=== PATIENT | female | born 1980 | race Caucasian/White ===

== ENCOUNTER 2020-01-21 21:59 | Outpatient (REF) | payer MEDICAID, SELFPAY ==
[2020-01-21 21:46] LABS: Anion Gap 10.6 mmol/L (3-11); BUN 11 mg/dL (7-18); CO2 27.4 mmol/L (21.0-32.0); Calcium 9.7 mg/dL (8.5-10.1); Chloride 101 mmol/L (98-107); Cholesterol 281 mg/dL (<200); Glucose 89 mg/dL (74-106); HDL Cholesterol 44 mg/dL (40-60); Potassium 4.5 mmol/L (3.5-5.1); Sodium 139 mmol/L (136-145); TSH 3.96 uIU/mL (0.36-3.74); Triglyceride 409 mg/dL (<150)
[2020-01-21 21:52] LABS: Abs Immature Grans 0.04 k/cumm (0.0-0.09); Absolute Basophil Count 0.04 k/cumm (0.0-0.2); Absolute Eosinophil Count 0.17 k/cumm (0.0-0.7); Absolute Lymphocyte Count 3.66 k/cumm (1.2-3.4); Absolute Monocyte Count 0.47 k/cumm (0.11-0.7); Absolute Neutrophil Count 5.16 k/cumm (1.2-6.7); Basophils % 0.4; Eosinophils % 1.8; HCT 43.2 % (36.0-46.0); HGB 14.3 g/dL (12.0-15.5); Immature Grans % 0.4 %; Lymphocytes % 38.4; Mean Corp. HGB Concentration 33.1 g/dL (32.0-36.0); Mean Corpuscular Hemoglobin 28.8 pg (27.0-33.0); Mean Corpuscular Volume 86.9 fL (80-95); Mean Platelet Volume 11.6 fL (8.0-11.0); Monocytes % 4.9; Neutrophils % 54.1; Platelet Count 271 x1000/uL (130-400); RBC 4.97 m/cumm (4.00-5.20); RBC Distribution Width 13.6 % (11.7-14.6); White Blood Cell Count 9.54 k/cumm (4.4-10.8)
[2020-01-21 22:24] LABS: Hemoglobin A1C 5.7 % (3.8-5.6)
[2020-01-21 22:28] LABS: LDL CHOLESTEROL 179 mg/dL (<100)
== END 2020-01-21 22:19 ==
LOC: NCHCN 21:59
PROVIDERS: PCP Nurse Practitioner Community Health; Visit Provider Nurse Practitioner Community Health
DX: E03.9 Hypothyroidism, unspecified (principal); I10 Essential (primary) hypertension; Z83.3 Family history of diabetes mellitus
CPT/HCPCS: 80048; 80061; 83721; 83036; 84443; 85025

== ENCOUNTER 2021-01-09 10:37 | Outpatient (REF) | payer MEDICAID, SELFPAY ==
[2021-01-09 14:41] LABS: Anion Gap 8.4 mmol/L (3-11); BUN 7 mg/dL (7-18); CO2 28.6 mmol/L (21.0-32.0); CREATININE 0.8 mg/dL (0.55-1.02); Calcium 9.6 mg/dL (8.5-10.1); Chloride 103 mmol/L (98-107); Glucose 91 mg/dL (74-106); Potassium 4.2 mmol/L (3.5-5.1); Sodium 140 mmol/L (136-145); TSH 4.75 uIU/mL (0.36-3.74)
== END 2021-01-09 10:38 | disposition home or self-care (01) ==
LOC: NCHCN 10:37
PROVIDERS: PCP Nurse Practitioner Community Health; Visit Provider Nurse Practitioner Community Health
DX: E03.9 Hypothyroidism, unspecified (principal); I10 Essential (primary) hypertension
CPT/HCPCS: 80048; 84443

== ENCOUNTER 2021-07-25 15:02 | Outpatient (REF) | payer MEDICAID, SELFPAY | END 2021-07-25 15:03 | disposition home or self-care (01) | LOC: NCHCN 15:02 | PROVIDERS: PCP Nurse Practitioner Community Health; Visit Provider Nurse Practitioner Community Health | DX: N39.0 Urinary tract infection, site not specified (principal) | CPT/HCPCS: 87086 ==

== ENCOUNTER 2021-08-03 15:47 | Outpatient (REF) | payer MEDICAID, SELFPAY ==
[2021-08-07 09:14] LABS: Hepatitis C Ab w Rflx HCV PCR Negative (Negative)
[2021-08-07 11:16] LABS: HIV-1/2 Ag & Ab Screen Negative (Negative)
[2021-08-07 14:41] LABS: Chlamydia Result Negative (Negative); GC Result Negative (Negative)
[2021-08-08 10:45] LABS: Syphilis Serology (RPR) Negative (Negative)
== END 2021-08-03 15:48 | disposition home or self-care (01) ==
LOC: NCHCN 15:47
PROVIDERS: PCP Nurse Practitioner Community Health; Visit Provider Nurse Practitioner Family
DX: Z11.4 Encounter for screening for human immunodeficiency virus [HIV] (principal); Z11.59 Encounter for screening for other viral diseases; Z11.3 Encounter for screening for infections with a predominantly sexual mode of transmission; N39.0 Urinary tract infection, site not specified
CPT/HCPCS: 86803; 87389; 87491; 87591; 86592; 87086; 87480; 87510; 87660

== ENCOUNTER 2021-08-23 12:42 | Outpatient (REF) | payer MEDICAID, SELFPAY | END 2021-08-23 12:43 | disposition home or self-care (01) | LOC: NCHCN 12:42 | PROVIDERS: PCP Nurse Practitioner Community Health; Visit Provider Nurse Practitioner Community Health | DX: R39.89 Other symptoms and signs involving the genitourinary system (principal); R82.998 Other abnormal findings in urine | CPT/HCPCS: 87077; 87086; 87186 ==

== ENCOUNTER 2021-11-16 14:49 | Outpatient (REF) | payer MEDICAID, SELFPAY ==
--- OUTSIDE RECORDS SUMMARY | 2021-11-16 14:53 | XMS_ITS | CCD ---
:1980 Author Care Team Providers Name Role Phone GRANT CHAPMAN MD Attending Physician Unavailable MD JOSE Er Physician 1 Unavailable Vital Signs Unknown or Not Available. Allergies Allergy Code Allergy Type Reaction Status VIOXX {Clinical monitoring 0 Drug allergy RASH A ctive unavailable} PCN (PENICILLIN) {Clinical 0 Drug allergy UNKNOWN A ctive monitoring unavailable} VIOXX (Free Text) {Clinical 0 Drug allergy RASH Active monitoring unavailable} Procedures Unknown or Not Available. History of Immunizations Unknown or Not Available. 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 Active Medications Medication Code Dose Units Frequency Route Modification Start Date/Time BCP 0 1 TABLET DAILY ORAL 04/21/2019 03:56 Prescription Detail TAKE 1 TABLET ORAL DAILY Gabapentin 254076 100 MILLIGRAMS DAILY ORAL 04/21/2019 100MG Oral 03:56 Capsule Prescription Detail TAKE 100 MILLIGRAMS ORAL HUMPHREY LY Lisinopril 10MG 762641 10 MILLIGRAMS DAILY ORAL 04/21 Oral Tablet 03:56 Prescription Detail TAKE 10 MILLIGRAMS ORAL YOLY Y LORADAMED 10MG 0 10 MILLIGRAMS DAILY ORAL 2018 ORAL TABLET 03:56 Prescription Detail TAKE 10 MILLIGRAMS ORAL YOLY Y raNITIdine 327949 150 MILLIGRAMS DAILY ORAL 04/21/2019 150MG Oral 03:56 Tablet Prescription Detail TAKE 150 MILLIGRAMS ORAL HUMPHREY LY RELPAX 20MG 0 20 MILLIGRAMS NEEDED ORAL 019 ORAL TABLET 03:56 Prescription Detail TAKE 20 MILLIGRAMS ORAL N EEDED Medications Administered During Visit Unknown or Not Available. Encounters Encounter Diagnosis Diagnosis Code Start Date Migraine, unspecified, intractable, with status [id number] 06/05/2021 migrainosus Social History Smoking Status Code Start Date End Date Current every day smoker [id number] 1995 Patient Decision Aids Unknown or Not Available. Discharge Instructions You were admitted to [place] [address] on 06/05/2021 19:52 with a principal diagnosis of Migraine, unspecified, intr actable, with status migrainosus You were discharged from [facility] 01 on 06/05/2021 22:05 Should you have any questions prior to d ischarge, please contact a member of your healthcare team. If you have left the ho spital and have any questions, please contact your primary care physician. Chief Complaint and Reason For Visit Chief Complaint Date of Onset HEADACHE Function Status Unknown or Not Available. Plan of Care Unknown or Not Available. Referral/Transition of Care Unknown or Not Available.
--- OUTSIDE RECORDS SUMMARY | 2021-11-16 14:53 | XMS_ITS | CCD ---
:1980 Author Care Team Providers Name Role Phone GURWINDER HAYS, JOVANNY LEONARDO Attending Physician Unavailable KAYKAY Er Physician 1 Unavailable Vital Signs Unknown [...] Date Resolved Date Status Ankylosis of lower 794880166 Active leg joint Results URINALYSIS WITH REFLEX CULT IF POSITIVE - Collect Date/Time: 07/15/2021 21:01 Test Name Code Test Result Test Units Test Ref Range COLLECTION MODE: Clean Catch N/A Color 5778-6 YELLOW N/A yellow Appearance 5767-9 CLOUDY N/A clear Glucose urine 78920-1 NEGATIVE N/A negative mg/ dl Bilirubin 5770-3 NEGATIVE N/A negative Ketones 2514-8 15 N/A negative mg/d l Spec gravity 5811-5 >=1.030 N/A 1.003 - 1.030 pH urine 2756-5 6.0 N/A 5.0 - 7.0 Protein 79074-7 >=300 N/A negative mg/d l Urobilinogen 90884-1 1.0 N/A <or= 1 EU/d l Nitrite. 5802-4 NEGATIVE N/A negative Blood 5794-3 LARGE N/A negative Leukocytes. MODERATE N/A negative MICROSCOPIC INDICATED N/A WBCs. 06462-2 10-25 N/A 0-5 / hpf RBCs 65162-0 >100 N/A 0-5 / hpf Epith cells 97142-4 0-5 N/A 0-5 / hpf Cell types squamous N/A Crystals none N/A none Bacteria none N/A none Mucus 8247-9 none N/A none Casts 22306-0 none N/A none /lp f Active Medications Medication Code Dose Units Frequency Route Modification Start Date/Time BCP 0 1 TABLET DAILY ORAL 04/21/2019 03:56 Prescription Detail TAKE 1 TABLET ORAL DAILY Gabapentin 627512 100 MILLIGRAMS DAILY ORAL 04/21/2019 100MG Oral 03:56 Capsule Prescription Detail TAKE 100 MILLIGRAMS ORAL HUMPHREY LY Lisinopril 10MG 160398 10 MILLIGRAMS DAILY ORAL 04/21 Oral Tablet 03:56 Prescription Detail TAKE 10 MILLIGRAMS ORAL YOLY Y LORADAMED 10MG 0 10 MILLIGRAMS DAILY ORAL 2018 ORAL TABLET 03:56 Prescription Detail TAKE 10 MILLIGRAMS ORAL YOLY Y raNITIdine 380357 150 MILLIGRAMS DAILY ORAL 04/21/2019 150MG Oral 03:56 Tablet Prescription Detail TAKE 150 MILLIGRAMS ORAL HUMPHREY LY RELPAX 20MG 0 20 MILLIGRAMS NEEDED ORAL 019 ORAL TABLET 03:56 Prescription Detail TAKE 20 MILLIGRAMS ORAL N EEDED Medications Administered During Visit Unknown or Not Available. Encounters Encounter Diagnosis Diagnosis Code Start Date Acute cystitis with hematuria N3001 07/15/2021 Social History Smoking Status Code Start Date End Date Current every day smoker [id number] 1995 Patient Decision Aids Unknown or Not Available. Discharge Instructions You were admitted to [facility] on 07/15/2021 20:12 with a principal diagnosis of Acute cystitis with hematur ia You had the following tests done: URINALYSIS WITH REFLEX CULT IF POSITIVE You were discharged from [facility] on 07/15/2021 22:48 Should you have any questions prior to d ischarge, please contact a member of your healthcare team. If you have left the spital and have any questions, please contact your primary care physician. Chief Complaint and Reason For Visit Chief Complaint Date of Onset MIGRAINE Function Status Unknown or Not Available. Plan of Care Unknown or Not Available. Referral/Transition of Care Unknown or Not Available.
[2021-11-17 14:45] LABS: Chlamydia Result Negative (Negative); GC Result Negative (Negative)
== END 2021-11-16 14:50 | disposition home or self-care (01) ==
LOC: NCHCN 14:49
PROVIDERS: PCP Nurse Practitioner Community Health; Visit Provider Registered Nurse
DX: R82.90 Unspecified abnormal findings in urine (principal); Z11.3 Encounter for screening for infections with a predominantly sexual mode of transmission
CPT/HCPCS: 87077; 87491; 87591; 87086; 87186

== ENCOUNTER 2022-01-10 15:08 | Outpatient (REF) | payer MEDICAID, SELFPAY ==
--- NOTE | 2022-01-10 11:45 | PAPFT_PTH ---
PATIENT: Martha Sanchez LOC: [facility]#:[id number] AGE/SX: 41/F ROOM: RE01/10/[address]: Kierra Cunningham : 1980 BED: DIS: 01/10/2022 SPEC #: [id number] RECD: 01/11/22 12:55 STATUS: CHONG REQ #: [id number] BART: 01/10/22 11:[address]: Kierra Cunningham DEPT: [facility] Cytology RECD BY: Barbara Rob ENTERED: 01/11/22 12:56 SP TYPE: PAPFT OTHR DR: Emily Reyes Tissues: 1 - CX/ENDOCX FOR PAP SMEARS Procedures: PAP THIN PREP/[facility] Screening HPV DNA PROBE Comments: [id number]
--- OUTSIDE RECORDS SUMMARY | 2022-01-10 15:11 | XMS_ITS | CCD ---
:1980 Author Care Team Providers Name Role Phone KAVON VÁSQUEZ Attending Physician Unavailable Zoila VÁSQUEZ Er Physician 1 Unavailable Litzy Dupree Registered Nurse Unavailable Vital Signs Vital Sign Value Unit Date/Time Recent/Initial? BMI (Body Mass Index) 27.4 kg/m^2 10/06/2021 15:40 In itial VS Weight Measured 145 lbs 10/06/2021 15:40 Initial VS Height 61 in 10/06/2021 15:40 Initial VS BSA (Body Surface 1.68 m^2 10/06/2021 15:40 Initia l VS Area) BP Systolic 145 mmHg 10/06/2021 15:40 Initial VS BP Diastolic 85 mmHg 10/06/2021 15:40 Initial VS Respiratory Rate 20 bpm 10/06/2021 15:40 Initial VS Heart Rate 63 bpm 10/06/2021 15:40 Initial VS O2 % BldC Oximetry 100 % 10/06/2021 15:40 Initi al VS Body Temperature 35.8 degrees 10/06/2021 15:40 Initial VS BP Systolic 118 mmHg 10/06/2021 17:22 Most Recent VS BP Diastolic 67 mmHg 10/06/2021 17:22 Most Recent VS Respiratory Rate 18 bpm 10/06/2021 17:22 Most Re cent VS Heart Rate 72 bpm 10/06/2021 17:22 Most Recent VS O2 % BldC Oximetry 98 % 10/06/2021 17:22 Most Recent VS Allergies Allergy Code Allergy Type Reaction Status VIOXX {Clinical monitoring 0 Drug allergy RASH A ctive unavailable} PCN (PENICILLIN) {Clinical 0 Drug allergy UNKNOWN A ctive monitoring unavailable} VIOXX (Free Text) {Clinical 0 Drug allergy RASH Active monitoring unavailable} Procedures Unknown or Not Available. History of Immunizations Unknown or Not Available. Problems Problem Code Start Date Resolved Date Status Ankylosis of lower 816353421 Active leg joint Results Unknown or Not Available. Active Medications Unknown or Not Available. Medications Administered During Visit Medication Dose Units Frequency Route Date/Time of Last Dose SODIUM CHLORIDE 0.9% 1000 ML X1 IV 11/0 04/2021 1000ML 17:24 DiphenhydrAMINE INJ 25 MG X1 IVP 10/06 SDV: 50MG/ML 16:20 METOCLOPRAMIDE INJ 10 MG X1 IVP 2020 SDV: 10MG/2ML 16:30 ACETAMINOPHEN INJ 1000 MG X1 IVPB 021 IVPB: 1000MG/100ML 16:26 Encounters Encounter Diagnosis Diagnosis Code Start Date Migraine [id number] 10/06/2021 Social History Smoking Status Code Start Date End Date Current every day smoker [id number] 1995 Patient Decision Aids Unknown or Not Available. Discharge Instructions You were admitted to [facility] on 10/06/2021 15:19 with a principal diagnosis of Migraine, unspecified, not intractable, without status migrainosus You were discharged from [facility] on 10/06/2021 17:38 Should you have any questions prior to d ischarge, please contact a member of your healthcare team. If you have left the ho spital and have any questions, please contact your primary care physician. Chief Complaint and Reason For Visit Chief Complaint Date of Onset MIGRANE Function Status Unknown or Not Available. Plan of Care Unknown or Not Available. Referral/Transition of Care Unknown or Not Available.
--- OUTSIDE RECORDS SUMMARY | 2022-01-10 15:11 | XMS_ITS | CCD ---
[...] Date Resolved Date Status Ankylosis of lower 125927503 Active leg joint Results Unknown or Not Available. Active Medications Medication Code Dose Units Frequency Route Modification Start Date/Time BCP 0 1 TABLET DAILY ORAL 04/21/2019 03:56 Prescription Detail TAKE 1 TABLET ORAL DAILY Gabapentin 969389 100 MILLIGRAMS DAILY ORAL 04/21/2019 100MG Oral 03:56 Capsule Prescription Detail TAKE 100 MILLIGRAMS ORAL HUMPHREY LY Lisinopril 10MG 720926 10 MILLIGRAMS DAILY ORAL 04/21 Oral Tablet 03:56 Prescription Detail TAKE 10 MILLIGRAMS ORAL YOLY Y LORADAMED 10MG 0 10 MILLIGRAMS DAILY ORAL 2018 ORAL TABLET 03:56 Prescription Detail TAKE 10 MILLIGRAMS ORAL YOLY Y raNITIdine 248267 150 MILLIGRAMS DAILY ORAL 04/21/2019 150MG Oral 03:56 Tablet Prescription Detail TAKE 150 MILLIGRAMS ORAL HUMPHREY LY RELPAX 20MG 0 20 MILLIGRAMS NEEDED ORAL 019 ORAL TABLET 03:56 Prescription Detail TAKE 20 MILLIGRAMS ORAL N EEDED Medications Administered During Visit Unknown or Not Available. Encounters Encounter Diagnosis Diagnosis Code Start Date Migraine, unspecified, intractable, with status [id number] 06/05/2021 migrainosus Social History Smoking Status Code Start Date End Date Current every day smoker [id number] 1995 Patient Decision Aids Unknown or Not Available. Discharge Instructions You were admitted to [place] [address] on 06/05/2021 19:52 with a principal diagnosis of Migraine, unspecified, intr actable, with status migrainosus You were discharged from [facility] 01 on 06/05/2021 22:05 Should you [...]
--- OUTSIDE RECORDS SUMMARY | 2022-01-10 15:11 | XMS_ITS | CCD ---
[...] Date Resolved Date Status Ankylosis of lower 595631371 Active leg joint Results URINALYSIS WITH REFLEX CULT IF POSITIVE - Collect Date/Time: 07/15/2021 21:01 Test Name Code Test Result Test Units Test Ref Range COLLECTION MODE: Clean Catch N/A Color 5778-6 YELLOW N/A yellow Appearance 5767-9 CLOUDY N/A clear Glucose urine 27360-3 NEGATIVE N/A negative mg/ dl Bilirubin 5770-3 NEGATIVE N/A negative Ketones 2514-8 15 N/A negative mg/d l Spec gravity 5811-5 >=1.030 N/A 1.003 - 1.030 pH urine 2756-5 6.0 N/A 5.0 - 7.0 Protein 90144-8 >=300 N/A negative mg/d l Urobilinogen 58447-6 1.0 N/A <or= 1 EU/d l Nitrite. 5802-4 NEGATIVE N/A negative Blood 5794-3 LARGE N/A negative Leukocytes. MODERATE N/A negative MICROSCOPIC INDICATED N/A WBCs. 83528-5 10-25 N/A 0-5 / hpf RBCs 21702-6 >100 N/A 0-5 / hpf Epith cells 05656-2 0-5 N/A 0-5 / hpf Cell types squamous N/A Crystals none N/A none Bacteria none N/A none Mucus 8247-9 none N/A none Casts 65641-1 none N/A none /lp f Active Medications Medication Code Dose Units Frequency Route Modification Start Date/Time BCP 0 1 TABLET DAILY ORAL 04/21/2019 03:56 Prescription Detail TAKE 1 TABLET ORAL DAILY Gabapentin 809521 100 MILLIGRAMS DAILY ORAL 04/21/2019 100MG Oral 03:56 Capsule Prescription Detail TAKE 100 MILLIGRAMS ORAL HUMPHREY LY Lisinopril 10MG 653580 10 MILLIGRAMS DAILY ORAL 04/21 Oral Tablet 03:56 Prescription Detail TAKE 10 MILLIGRAMS ORAL YOLY Y LORADAMED 10MG 0 10 MILLIGRAMS DAILY ORAL 2018 ORAL TABLET 03:56 Prescription Detail TAKE 10 MILLIGRAMS ORAL YOLY Y raNITIdine 902542 150 MILLIGRAMS DAILY ORAL 04/21/2019 150MG Oral [...] Date End Date Current every day smoker [id number] 1995 Patient Decision Aids Unknown or Not Available. Discharge Instructions You were admitted to [facility] on 07/15/2021 20:12 with a principal diagnosis of Acute cystitis with hematur ia You had the following tests done: URINALYSIS WITH REFLEX CULT IF POSITIVE You were discharged from [facility] on 07/15/2021 22:48 Should you [...]
[2022-01-10 22:01] LABS: Anion Gap 9.5 mmol/L (3-11); BUN 9 mg/dL (7-18); CO2 27.5 mmol/L (21.0-32.0); CREATININE 0.8 mg/dL (0.55-1.02); Calcium 9.5 mg/dL (8.5-10.1); Calculated LDL 179 mg/dL (<100); Chloride 104 mmol/L (98-107); Cholesterol 259 mg/dL (<200); Glucose 82 mg/dL (74-106); HDL Cholesterol 47 mg/dL (40-60); Potassium 4.5 mmol/L (3.5-5.1); Sodium 141 mmol/L (136-145); TSH 0.44 uIU/mL (0.36-3.74); Triglyceride 166 mg/dL (<150)
[2022-01-12 09:53] LABS: HIV-1/2 Ag & Ab Screen Negative (Negative)
== END 2022-01-10 15:09 | disposition home or self-care (01) ==
LOC: NCHCN 15:08
PROVIDERS: PCP Nurse Practitioner Community Health; Visit Provider Registered Nurse
DX: Z12.4 Encounter for screening for malignant neoplasm of cervix (principal); Z11.4 Encounter for screening for human immunodeficiency virus [HIV]; E03.9 Hypothyroidism, unspecified; I10 Essential (primary) hypertension; Z68.27 Body mass index [BMI] 27.0-27.9, adult
CPT/HCPCS: 80048; 80061; 87389; 88142; 84443; 87624

== ENCOUNTER 2023-02-08 14:47 | Outpatient (REF) | payer MEDICAID, SELFPAY ==
[2023-02-08 16:03] LABS: TSH 1.44 uIU/mL (0.36-3.74)
== END 2023-02-08 14:48 | disposition home or self-care (01) ==
LOC: NCHCN 14:47
PROVIDERS: PCP Nurse Practitioner Community Health; Visit Provider Registered Nurse
DX: E03.9 Hypothyroidism, unspecified (principal)
CPT/HCPCS: 84443

== ENCOUNTER 2023-07-04 19:37 | Outpatient (REF) | payer MEDICAID, SELFPAY ==
[2023-07-04 21:00] LABS: HCT 39.8 % (36.0-46.0); HGB 13.1 g/dL (11.2-15.7); MCH 28.4 pg (27.0-33.0); MCHC 32.9 % (32.0-36.0); MCV 86 fL (80-95); Platelet Count 208 10^3/uL (130-400); RBC 4.61 10^6/uL (3.93-5.22); RDW 13.6 % (11.7-14.6); RDW-SD 42.3 fL; WBC 11.44 10^3/uL (4.4-10.8)
[2023-07-04 21:19] LABS: Hemoglobin A1C 5.5 % (<5.7)
[2023-07-04 21:25] LABS: ALT 17 U/L (14-59); AST 18 U/L (15-37); Alkaline Phosphatase 82 U/L (46-116); Anion Gap 8.9 mmol/L (3-11); BUN 14 mg/dL (7-18); Bilirubin, Total 0.2 mg/dL (0.2-1.0); CO2 27.1 mmol/L (21.0-32.0); Calcium 9.5 mg/dL (8.5-10.1); Chloride 103 mmol/L (98-107); Cholesterol 238 mg/dL (<200); Estimated GFR 73.04 (mL/min/1.73m2); Glucose 93 mg/dL (74-106); HDL Cholesterol 40 mg/dL (40-60); Potassium 4.1 mmol/L (3.5-5.1); Sodium 139 mmol/L (136-145); TSH 1.52 uIU/mL (0.36-3.74); Total Protein 7.7 g/dL (6.4-8.2); Triglyceride 455 mg/dL (<150)
[2023-07-04 21:38] LABS: LDL CHOLESTEROL 137 mg/dL (<100)
== END 2023-07-04 19:38 | disposition home or self-care (01) ==
LOC: NCHCN 19:37
PROVIDERS: PCP Nurse Practitioner Community Health; Visit Provider Registered Nurse
DX: R73.03 Prediabetes (principal); N93.8 Other specified abnormal uterine and vaginal bleeding; E03.9 Hypothyroidism, unspecified; I10 Essential (primary) hypertension; E78.1 Pure hyperglyceridemia
CPT/HCPCS: 80053; 80061; 83721; 85027; 83036; 84443

== ENCOUNTER 2023-12-09 16:56 | Outpatient (REF) | payer MEDICAID, SELFPAY ==
--- OUTSIDE RECORDS SUMMARY | 2023-12-09 16:59 | XMS_ITS | CCD ---
Author Name Unknown Address [address] [place] [address] [id number] Organization Unknown Address [address] [place] [address] [phone] Care Team Providers Care Community Organization Director Name Role Phone LUIS GALLOWAY Attending Physician [phone] LUIS GALLOWAY Er Physician 0 [phone] BRAYDEN Garcia Registered Nurse [phone] Vital Signs Vital Sign Value Unit Date/Time Recent/Initial ? BMI (Body Mass Index) 30.23 kg/m^2 05/27/2023 18: 21 Initial VS Weight Measured 160 lbs 05/27/2023 18:21 Ini tial VS Height 61 in 05/27/2023 18:21 Initial VS BSA (Body Surface Area) 1.77 m^2 05/27/2023 1 8:21 Initial VS BP Systolic 174 mmHg 05/27/2023 18:21 Initial VS BP Diastolic 87 mmHg 05/27/2023 18:21 Initia l VS Respiratory Rate 16 bpm 05/27/2023 18:21 In itial VS Heart Rate 59 bpm 05/27/2023 18:21 Initial VS O2 % BldC Oximetry 98 % 05/27/2023 18:21 Initial VS Body Temperature 36.4 degrees 05/27/2023 18:21 In itial VS BP Systolic 138 mmHg 05/27/2023 19:56 Most Re cent VS BP Diastolic 80 mmHg 05/27/2023 19:56 Most R ecent VS Respiratory Rate 16 bpm 05/27/2023 19:[address] Recent VS Heart Rate 76 bpm 05/27/2023 19:56 Most Rec ent VS O2 % BldC Oximetry 97 % 05/27/2023 19:56 Most Recent VS Body Temperature 36.7 degrees 05/27/2023 19:[address] Recent VS Allergies Allergy Code Allergy Type Reaction Status VIOXX {Clinical monitoring unavailable} 0 Drug al lergy RASH Active PCN (PENICILLIN) {Clinical m onitoring unavailable} 0 Drug allergy SWELLING, ANGIOEDEMA Active Procedures Unknown or Not Available. History of Immunizations Unknown or Not Available. Problems Problem Code Start Date Resolved Date Status Ankylosis of lower leg joint 731738398 Active HTN 73824048 Active Results Unknown or Not Available. Active Medications Medications Administered During Visit Medication Dose Units Frequency Route Date/Time of Last Dose SODIUM CHLORIDE 0.9% 1000ML 1000 ML X1 05/27/2023 19:12 KETOROLAC INJ SDV: 30MG/1ML 15 MG X1 IV P 05/27/2023 19:12 DroPERidol INJ SDV: 5MG/2ML 0.62 MG X1 IV P 05/27/2023 19:12 SUMAtriptan SUCC INJ SDV: 6MG/0.5ML 6 MG X1 SUBQ 05/27/2023 19:12 Encounters Encounter Diagnosis Diagnosis Code Start Date Migraine [id number] 05/27/2023 Social History Smoking Status Code Start Date End Date Current every day smoker [id number] 1995 Patient Decision Aids Unknown or Not Available. Discharge Instructions You were admitted to [facility] on 05/27/2023 18:04 with a principal diagnosis of Migraine, unspecified, not intractable, without status migrainosus You were discharged from [facility] on 05/27/2023 20:01 Should you have any questions prior to discharge, please contact a member of your healthcare team. If you have left the hospital and have any questions, please contact your primary care physician. Chief Complaint and Reason For Visit Chief Complaint Date of Onset MIGRAINE Function Status Unknown or Not Available. Plan of Care Unknown or Not Available. Referral/Transition of Care Unknown or Not Available.
--- OUTSIDE RECORDS SUMMARY | 2023-12-09 16:59 | XMS_ITS | CCD ---
Author Name Unknown Address [address] [place] [address] [id number] Organization Unknown Address [address] [place] [address] [phone] Care Team Providers Care Assistant Produce Manager Name Role Phone GRANT CHAPMAN MD Attending Physician [phone] IAN GARCIA MD Er Physician [phone] Vital Signs Unknown or Not Available. Allergies Allergy Code Allergy Type Reaction Status VIOXX {Clinical monitoring unavailable} 0 Drug al lergy RASH Active PCN (PENICILLIN) {Clinical monitoring unavailable} 0 Drug allergy Active Procedures Unknown or Not Available. History of Immunizations Unknown or Not Available. Problems Problem Code Start Date Resolved Date Status Ankylosis of lower leg joint 591334222 Active HTN 13955963 Active Results Unknown or Not Available. Active Medications Unknown or Not Available. Medications Administered During Visit Unknown or Not Available. Encounters Encounter Diagnosis Diagnosis Code Start Date Migraine, unspecified, intractable, with status migrainosus Y59934 06/05/2021 Social History Smoking Status Code Start Date End Date Current every day smoker [id number] 1995 Patient Decision Aids Unknown or Not Available. Discharge Instructions You were admitted to [facility] on 06/05/2021 19:52 with a principal diagnosis of Migraine, unspecified, intractable, with status migrainosus You were discharged from [facility] on 06/05/2021 22:05 Should you have any [...]
--- OUTSIDE RECORDS SUMMARY | 2023-12-09 16:59 | XMS_ITS | CCD ---
Author Name Unknown Address [address] [place] [address] [phone] Organization Unknown Address [address] [place] [address] [phone] Care Team Providers Care Bowl Sander Name Role Phone GURWINDER HAYS, JOVANNY LEONARDO Attending Physician [phone] MESFIN MCCRACKEN Er Physician 1 0 Vital Signs Unknown or Not Available. Allergies Allergy Code Allergy Type Reaction Status VIOXX {Clinical monitoring unavailable} 0 Drug al lergy RASH Active PCN (PENICILLIN) {Clinical monitoring unavailable} 0 Drug allergy Active Procedures Unknown or Not Available. History of Immunizations Unknown or Not Available. Problems Problem Code Start Date Resolved Date Status Ankylosis of lower leg joint 348196856 Active HTN 33913550 Active Results URINALYSIS WITH REFLEX CULT IF POSITIVE - Collect Date/Time: 07/15/2021 21:01 Test Name Code Test Result Test Units Test Ref Rang e COLLECTION MODE: Clean Catch N/A Color 5778-6 YELLOW N/A yellow Appearance 5767-9 CLOUDY N/A clear Glucose urine 93493-9 NEGATIVE N/A negative mg /dl Bilirubin 5770-3 NEGATIVE N/A negative Ketones 2514-8 15 N/A negative mg/dl Spec gravity 5811-5 >=1.030 N/A 1.003 - 1.03 0 pH urine 2756-5 6.0 N/A 5.0 - 7.0 Protein 10234-7 >=300 N/A negative mg/dl Urobilinogen 71098-9 1.0 N/A <or= 1 EU/dl Nitrite. 5802-4 NEGATIVE N/A negative Blood 5794-3 LARGE N/A negative Leukocytes. MODERATE N/A negative MICROSCOPIC INDICATED N/A WBCs. 85873-3 10-25 N/A 0-5 / hpf RBCs 29217-4 >100 N/A 0-5 / hpf Epith cells 88422-0 0-5 N/A 0-5 / hpf Cell types squamous N/A Crystals none N/A none Bacteria none N/A none Mucus 8247-9 none N/A none Casts 31825-6 none N/A none /lpf Active Medications Unknown or Not Available. Medications Administered During Visit Unknown or Not Available. Encounters Encounter Diagnosis Diagnosis Code Start Date Acute cystitis with hematuria N3001 Social History Smoking Status Code Start Date End Date Current every day smoker [id number] 1995 Patient Decision Aids Unknown or Not Available. Discharge Instructions You were admitted to [facility] on 07/15/2021 20:12 with a principal diagnosis of Acute cystitis with hematuria You had the following tests done:URINALYSIS WITH REFLEX CULT IF POSITIVE You were discharged from [facility] on 07/15/2021 22:48 Should you [...]
--- OUTSIDE RECORDS SUMMARY | 2023-12-09 16:59 | XMS_ITS | CCD ---
Author Name Unknown Address [address] [place] [address] [phone] Organization Unknown Address [address] [place] [address] [phone] Care Team Providers Care Pantograph Engraver Name Role Phone KAVON VÁSQUEZ Attending Physician [phone] KAVON VÁSQUEZ Er Physician 6 [phone] DANINELLE Dupree Registered Nurse [phone] Vital Signs Vital Sign Value Unit Date/Time Recent/Initial ? BMI (Body Mass Index) 27.4 kg/m^2 10/06/2021 15: 40 Initial VS Weight Measured 145 lbs 10/06/2021 15:40 Ini tial VS Height 61 in 10/06/2021 15:40 Initial VS BSA (Body Surface Area) 1.68 m^2 10/06/2021 1 5:40 Initial VS BP Systolic 145 mmHg 10/06/2021 15:40 Initial VS BP Diastolic 85 mmHg 10/06/2021 15:40 Initia l VS Respiratory Rate 20 bpm 10/06/2021 15:40 In itial VS Heart Rate 63 bpm 10/06/2021 15:40 Initial VS O2 % BldC Oximetry 100 % 10/06/2021 15:40 Initial VS Body Temperature 35.8 degrees 10/06/2021 15:40 In itial VS BP Systolic 118 mmHg 10/06/2021 17:22 Most Re cent VS BP Diastolic 67 mmHg 10/06/2021 17:22 Most R ecent VS Respiratory Rate 18 bpm 10/06/2021 17:[address] Recent VS Heart Rate 72 bpm 10/06/2021 17:22 Most Rec ent VS O2 % BldC Oximetry 98 % 10/06/2021 17:22 Most Recent VS Allergies Allergy Code Allergy Type Reaction Status VIOXX {Clinical monitoring unavailable} 0 Drug al lergy RASH Active PCN (PENICILLIN) {Clinical monitoring unavailable} 0 Drug allergy Active Procedures Unknown or Not Available. History of Immunizations Unknown or Not Available. Problems Problem Code Start Date Resolved Date Status Ankylosis of lower leg joint 421552118 Active HTN 92126155 Active Results Unknown or Not Available. Active Medications Unknown or Not Available. Medications Administered During Visit Medication Dose Units Frequency Route Date/Time of Last Dose SODIUM CHLORIDE 0.9% 1000ML 1000 ML X1 IV 10/06/2021 17:24 DiphenhydrAMINE INJ SDV: 50MG/ML 25 MG X1 IVP 10/06/2021 16:20 METOCLOPRAMIDE INJ SDV: 10MG/2ML 10 MG X1 IVP 10/06/2021 16:30 ACETAMINOPHEN INJ IVPB: 1000MG/100ML 1000 MG X1 IVPB 10/06/2021 16:2 6 Encounters Encounter Diagnosis Diagnosis Code Start Date Migraine 39793683 10/06/2021 Social History Smoking Status Code Start Date End Date Current every day smoker [id number] 1995 Patient Decision Aids Unknown or Not Available. Discharge Instructions You were admitted to [facility] on 10/06/2021 15:19 with a principal diagnosis of Migraine, unspecified, not intractable, without status migrainosus You were discharged from [facility] on 10/06/2021 17:38 Should you have any [...]
--- OUTSIDE RECORDS SUMMARY | 2023-12-09 16:59 | XMS_ITS | CCD ---
Author Name Unknown Address [address] [place] [address] [phone] Organization Unknown Address [address] [place] [address] [phone] Care Team Providers Care Bi Technical Lead Name Role Phone GRANT CHAPMAN Attending Physician [phone] DANA PINEDO Er Physician [phone] OCTAVIO Raza Registered Nurse [phone] Vital Signs Vital Sign Value Unit Date/Time Recent/Initial ? BMI (Body Mass Index) 30.23 kg/m^2 09/04/2023 16: 28 Initial VS Weight Measured 160 lbs 09/04/2023 16:28 Ini tial VS Height 61 in 09/04/2023 16:28 Initial VS BSA (Body Surface Area) 1.77 m^2 09/04/2023 1 6:28 Initial VS BP Systolic 195 mmHg 09/04/2023 16:28 Initial VS BP Diastolic 88 mmHg 09/04/2023 16:28 Initia l VS Respiratory Rate 20 bpm 09/04/2023 16:28 In itial VS Heart Rate 55 bpm 09/04/2023 16:28 Initial VS O2 % BldC Oximetry 100 % 09/04/2023 16:28 Initial VS Body Temperature 36.9 degrees 09/04/2023 16:28 In itial VS BP Systolic 147 mmHg 09/04/2023 19:00 Most Re cent VS BP Diastolic 67 mmHg 09/04/2023 19:00 Most R ecent VS Respiratory Rate 16 bpm 09/04/2023 19:[address] Recent VS Heart Rate 55 bpm 09/04/2023 19:00 Most Rec ent VS O2 % BldC Oximetry 98 % 09/04/2023 19:00 Most Recent VS Allergies Allergy Code Allergy Type Reaction Status VIOXX {Clinical monitoring unavailable} 0 Drug al lergy RASH Active PCN (PENICILLIN) {Clinical m onitoring unavailable} 0 Drug allergy SWELLING, ANGIOEDEMA Active Procedures Unknown or Not Available. History of Immunizations Unknown or Not Available. 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 Active Medications Medications Administered During Visit Medication Dose Units Frequency Route Date/Time of Last Dose PROCHLORPERAZINE INJ SDV:10MG/2ML 10 MG X1 IVP 09/04/2023 17:49 KETOROLAC INJ SDV: 30MG/1ML 15 MG X1 IV P 09/04/2023 17:48 SODIUM CHLORIDE 0.9% 1000ML 1000 ML X1 09/04/2023 17:48 Encounters Encounter Diagnosis Diagnosis Code Start Date Migraine 03366217 09/04/2023 Social History Smoking Status Code Start Date End Date Current every day smoker 228913692 1995 Patient Decision Aids Unknown or Not Available. Discharge Instructions You were admitted to [facility] on 09/04/2023 16:09 with a principal diagnosis of Migraine, unspecified, not intractable, without status migrainosus You were discharged from [facility] on 09/04/2023 19:03 Should you have any questions prior to discharge, please contact a member of your healthcare team. If you have left the hospital and have any questions, please contact your primary care physician. Chief Complaint and Reason For Visit Chief Complaint Date of Onset SEVERE MIGRAINE VOMITING Function Status Unknown or Not Available. Plan of Care Unknown or Not Available. Referral/Transition of Care Unknown or Not Available.
[2023-12-10 18:29] LABS: Hepatitis B Surface Ag Negative (Negative)
[2023-12-10 18:58] LABS: HIV-1/2 Ag & Ab Screen Negative (Negative)
[2023-12-10 19:02] LABS: Hepatitis C Ab w Rflx HCV PCR Negative (Negative)
[2023-12-10 19:03] LABS: Hep B Core Antibody Negative (Negative)
== END 2023-12-09 16:57 | disposition home or self-care (01) ==
LOC: NCHCN 16:56
PROVIDERS: PCP Nurse Practitioner Community Health; Visit Provider Family Medicine
DX: F11.11 Opioid abuse, in remission (principal)
CPT/HCPCS: 86704; 86803; 87340; 87389; 85018

== ENCOUNTER 2024-02-24 16:46 | Outpatient (REF) | payer MEDICAID, SELFPAY ==
[2024-02-24 21:31] LABS: HCT 46.8 % (36.0-46.0); HGB 15.4 g/dL (11.2-15.7); MCH 29.2 pg (27.0-33.0); MCHC 32.9 % (32.0-36.0); MCV 89 fL (80-95); MPV 12.1 fL (8.0-11.0); Platelet Count 172 10^3/uL (130-400); RBC 5.28 10^6/uL (3.93-5.22); RDW 13.2 % (11.7-14.6); RDW-SD 43.1 fL; WBC 11.49 10^3/uL (4.4-10.8)
[2024-02-24 21:44] LABS: Anion Gap 7.6 mmol/L (3-11); BUN 12 mg/dL (7-18); CO2 29.4 mmol/L (21.0-32.0); CREATININE 0.7 mg/dL (0.55-1.02); Calcium 9.5 mg/dL (8.5-10.1); Chloride 102 mmol/L (98-107); Estimated GFR 111.36 (mL/min/1.73m2); Glucose 89 mg/dL (74-106); Sodium 139 mmol/L (136-145)
== END 2024-02-24 16:47 | disposition home or self-care (01) ==
LOC: NCHCN 16:46
PROVIDERS: PCP Nurse Practitioner Community Health; Visit Provider Family Medicine
DX: Z86.2 Personal history of diseases of the blood and blood-forming organs and certain disorders involving the immune mechanism (principal); Z79.899 Other long term (current) drug therapy
CPT/HCPCS: 80048; 85027

== ENCOUNTER 2024-05-12 17:46 | Outpatient (REF) | payer MEDICAID, SELFPAY ==
[2024-05-12 21:57] LABS: TSH (W/Ref FT4) 1.32 uIU/mL (0.36-3.74)
== END 2024-05-12 17:47 | disposition home or self-care (01) ==
LOC: NCHCN 17:46
PROVIDERS: PCP Nurse Practitioner Community Health; Visit Provider Family Medicine
DX: E03.9 Hypothyroidism, unspecified (principal)
CPT/HCPCS: 84443

== ENCOUNTER 2024-06-01 18:19 | Outpatient (REF) | payer MEDICAID, SELFPAY ==
--- NOTE | 2024-06-01 15:00 | SKI_PTH ---
PATIENT: Martha Sanchez LOC: [facility] U#:[id number] AGE/SX: 43/F ROOM: RE06/01/[address]: Maryan Moody : 1980 BED: DIS: 06/01/2024 SPEC #: [id number] RECD: 06/02/24 12:45 STATUS: CHONG REDanie #: [id number] BART: 06/01/24 15:[address]: Maryan Moody DEPT: Surgical Specimen RECD BY: Barbara Rob ENTERED: 06/02/24 12:45 SP TYPE: MANUEL PETERS DR: Emily Reyes Tissues: 1 - SKIN BIOPSY(SHAVE/PUNCH) Procedures: SKIN LEVEL 4 Comments: [id number]
--- OUTSIDE RECORDS SUMMARY | 2024-06-01 18:23 | XMS_ITS ---
Author Name Unknown Address [address], [place] [phone] Phone Organization Unknown Address [address] [place] [address] [phone] Phone Care Team Providers Care Bilingual Medical Receptionist Name Role Phone DANNIELLE YOUSSEF Registered Nurse Unavailable FAHAD Cummings Attending Unavailable RICARDO Jain Primary Unavailable UNLISTED PROVIDER - REQUESTED Xhandoff Un available Social History Type Status Start Date End Date Code Code Syst em Smoking History Current every day smoker [id number] Sex Female Vital Signs Vital Sign Value Unit [place] Value [place] Unit Date/Time Recent/Initial? Code Code System Body Mass Index 27.40 kg/m2 10/06/2021 15:40 Initial 71222 -5 LOINC Systolic Blood Pressure 118 mm[Hg] 10/06/2021 17:22 Most Recent 8480- 6 LOINC Diastolic Blood Pressure 67 mm[Hg] 10/06/2021 17:22 Most Recent 8462- 4 LOINC Systolic Blood Pressure 145 mm[Hg] 10/06/2021 15:40 Initial 8480- 6 LOINC Diastolic Blood Pressure 85 mm[Hg] 10/06/2021 15:40 Initial 8462- 4 LOINC Body Surface Area 1.68 m2 10/06/2021 15:40 Initial 3140- 1 LOINC Height 154.940 0 cm 61.00 in 10/06/2021 15:40 Initial 8302- 2 LOINC O2 Saturation 98 % 2020 17:22 Most Recent 44571 -5 LOINC O2 Saturation 100 % 2020 15:40 Initial 77311 -5 LOINC Pulse 72.0 /min 10/06/2021 17:22 Most Recent 8867- 4 LOINC Pulse 63.0 /min 10/06/2021 15:40 Initial 8867- 4 [facility] Respiration 18 /min 10/06/20 17:22 Most Recent 9279- 1 [facility] Respiration 20 /min 10/06/20 15:40 Initial 9279- 1 [facility] Temperature 35.8 Adia 96.4 F 10/06/20 15:40 Initial 8310- 5 [facility] Weight 65.77 kg 145.00 lbs 10/06/2021 15:40 Initial 14206 -7 [facility] Medications Medication Start Date End Date Route Frequency Dose Code Code System Medication Instructions Home Meds BCP 04/21/2019 05/27/2023 ORAL DAILY 1 TABLET RxNorm TAKE 1 TABLET ORAL DAILY Gabapentin 100MG Oral Capsule 04/21/2019 05/27/2023 ORAL DAILY 100 MILLIGRAMS 898386 RxNorm TAKE 100 MILLIGRAMS ORAL DAILY LORADAMED 10MG ORAL TABLET 04/21/2019 05/27/2023 ORAL DAILY 10 MILLIGRAMS RxNorm TAKE 10 MILLIGRAMS ORAL DAILY Lisinopril 10MG Oral Tablet 04/21/2019 05/27/2023 ORAL DAILY 10 MILLIGRAMS 157661 RxNorm TAKE 10 MILLIGRAMS ORAL DAILY RELPAX 20MG ORAL TABLET 04/21/2019 05/27/2023 ORAL NEEDED 20 MILLIGRAMS RxNorm TAKE 20 MILLIGRAMS ORAL NEEDED SUBOXONE 8MG-2MG SUBLINGUAL FILM 04/21/2019 10/06/2021 ORAL DAILY 8 MILLIGRAMS RxNorm TAKE 8 MILLIGRAMS ORAL DAILY raNITIdine 150MG Oral Tablet 04/21/2019 05/27/2023 ORAL DAILY 150 MILLIGRAMS 946634 RxNorm TAKE 150 MILLIGRAMS ORAL DAILY Carafate 1GM Oral Tablet 04/29/2024 Unknown ORAL NEEDED THREE TIMES A DAY 1 TABLET 928155 RxNorm TAKE 1 TABLET ORAL NEEDED THREE TIMES A DAY FOR Pain Ondansetron 4MG Oral Tablet, Disintegrating 04/29/2024 Unknown ORAL NEEDED EVERY 6 HOURS 377396 RxNorm TAKE 1-2 TABLET ORAL NEEDED EVERY 6 HOURS FOR Nausea Assessment You had the following problems:ANKYLOSIS OF LOWER LEG JOINTHTN Hospital Discharge Instructions Should you have any questions prior to discharge, please contact a member of your healthcare team. If you have left the hospital and have any questions, please contact your primary care physician. Reason For Referral No Data Found Problems Problem Start Date Resolved Date Status Code Code System ANKYLOSIS OF LOWER LEG JOINT active 2 53850287 SNOMED-CT HTN active 95029732 SNOMED-CT Allergies and Adverse Reactions Allergy Substance Reaction Severity Start Date Concern Status Co de Code System VIOXX Rash (SNOMED-CT: 125449343) Active PCN (PENICILLIN) Active Plan of Treatment Symptoms 02/24/2021 Encounters Encounter Diagnosis Start Date Code Code Sys tem Migraine 10/06/2021 69935947 SNOMED-CT Personal Care Team Section Performer Name Performer Role Active Date Inactive Da te
--- OUTSIDE RECORDS SUMMARY | 2024-06-01 18:23 | XMS_ITS ---
Author Name Unknown Address [address] [place] [address] [phone] Phone Organization Unknown Address [address] [place] [address] [phone] Phone Care Team Providers Care As400 Programmer Analyst Name Role Phone OCTAVIO HUTCHINS Registered Nurse Unavailable ADELA Cummings Attending Unavailable SHAHIDA MILLER Unavailable YURY Frausto Primary Unavailable UNLISTED PROVIDER - REQUESTED Xhandoff Un available Social History Type Status Start Date End Date Code Code Syst em Smoking History Current every day smoker [address] Sex Female Vital Signs Vital Sign Value Unit [place] Value [place] Unit Date/Time Recent/Initial? Code Code System Body Mass Index 30.23 kg/m2 09/04/2023 16:28 Initial 30406 -5 LOINC Systolic Blood Pressure 147 mm[Hg] 09/04/2023 19:00 Most Recent 8480- 6 LOINC Diastolic Blood Pressure 67 mm[Hg] 09/04/2023 19:00 Most Recent 8462- 4 LOINC Systolic Blood Pressure 195 mm[Hg] 09/04/2023 16:28 Initial 8480- 6 LOINC Diastolic Blood Pressure 88 mm[Hg] 09/04/2023 16:28 Initial 8462- 4 LOINC Body Surface Area 1.77 m2 09/04/2023 16:28 Initial 3140- 1 LOINC Height 154.940 0 cm 61.00 in 09/04/2023 16:28 Initial 8302- 2 LOINC O2 Saturation 98 % 2022 19:00 Most Recent 47026 -5 LOINC O2 Saturation 100 % 2022 16:28 Initial 73734 -5 LOINC Pulse 55.0 /min 09/04/2023 19:00 Most Recent 8867- 4 LOINC Pulse 55.0 /min 09/04/2023 16:28 Initial 8867- 4 LOINC Respiration 16 /min 09/04/20 19:00 Most Recent 9279- 1 LOINC Respiration 20 /min 09/04/20 16:28 Initial 9279- 1 LOINC Temperature 36.9 Adia 98.4 F 09/04/20 16:28 Initial 8310- 5 LOINC Weight 72.57 kg 160.00 lbs 09/04/2023 16:28 Initial 99217 -7 LOINC Medications Medication Start Date End Date Route Frequency Dose Code Code System Medication Instructions Home Meds Carafate 1GM Oral Tablet 04/29/2024 Unknown ORAL NEEDED THREE TIMES A DAY 1 TABLET 032637 RxNorm TAKE 1 TABLET ORAL NEEDED THREE TIMES A DAY FOR Pain Ondansetron 4MG Oral Tablet, Disintegrating 04/29/2024 Unknown ORAL NEEDED EVERY 6 HOURS 964714 RxNorm TAKE 1-2 TABLET ORAL NEEDED EVERY [...] ANKYLOSIS OF LOWER LEG JOINT active 2 21093376 SNOMED-CT HTN active 26940606 SNOMED-CT Allergies and Adverse Reactions Allergy Substance Reaction Severity Start Date Concern Status Co de Code System VIOXX Rash (SNOMED-CT: 781053325) Active PCN (PENICILLIN) Active Plan of Treatment Symptoms 02/24/2021 Encounters Encounter Diagnosis Start Date Code Code Sys tem Migraine 09/04/2023 48947464 Edust[facility].meOMED-CT Personal Care Team Section Performer Name Performer Role Active Date Inactive Da te
--- OUTSIDE RECORDS SUMMARY | 2024-06-01 18:23 | XMS_ITS ---
Author Name Unknown Address [address] [place] [address] [phone] Phone Organization Unknown Address [address] [place] [address] [phone] Phone Care Team Providers Care Msw Name Role Phone NICOLE BRADSHAW Registered Nurse Unavailable SELVIN GUZMAN Registered Nurse Unavailable SHAHIDA CORTEZ Attending Unavailable YURY Frausto Primary Unavailable UNLISTED PROVIDER - REQUESTED Xhandoff Un available Results URINALYSIS WITH REFLEX CULT IF POSITIVE* - Collect Date/Time: 04/29/2024 11:10 [facility] ID: [id number] [address] [place], [place], [address] LOINC: 13085-3 Test Value Unit Reference Range Code Code System Flag COLLECTION MODE: CLEAN CATCH 93319-0 LOINC Color YELLOW yellow 5778-6 LOINC Appearance CLEAR clear 5767-9 LOINC Glucose urine NEGATIVE negative mg/dl 57425-1 LOINC Bilirubin SMALL negative 5770-3 LOINC A Ketones 15 negative mg/dl 2514-8 LOINC A Spec gravity 1.020 1.003 - 1.030 5811-5 LOINC pH urine 6.0 5.0 - 7.0 2756-5 LOINC Protein 30 negative mg/dl 51733-7 LOINC A Urobilinogen 1.0 <or= 1 EU/dl 66386-8 LOINC A Nitrite. NEGATIVE negative 5802-4 LOINC Blood NEGATIVE negative 5794-3 LOINC Leukocytes. NEGATIVE negative MICROSCOPIC INDICATED WBCs. 0-5 0-5 / hpf 88727-6 LOINC RBCs 0-5 0-5 / hpf 30496-8 LOINC Epith cells 10-25 0-5 / hpf 53511-0 LOINC Cell types squamous Crystals none none Bacteria moderate none Mucus present none 8247-9 LOINC Casts none none /lpf 74481-5 LOINC Other 06165-7 LOINC TEST QUAL (URINE) - Collect Date/Time: 04/29/2024 11:10 [facility] ID: [id number] [address], [place], [address] LOINC: 2106-01 Test Value Unit Reference Range Code Code System Flag TEST NEGATIVE 2106-01 LOINC CBC W/ DIFFERENTIAL* - Colle ct Date/Time: 04/29/2024 10:10 [facility] ID: [id number] [address], [place], [address] LOINC: 06742-4 Test Value Unit Reference Range Code Code System Flag WBC 12.91 th/cmm L=5.00 H=10.00 6690-2 LOINC H NEUT % 72.0 % L=40.0 H=80.0 LYMPH % 21.4 % L=10.0 H=50.0 MONO % 4.7 % L=2.0 H=12.0 66594-3 LOINC EOS % 0.9 % L=0.0 H=8.0 BASO % 0.5 % L=0.0 H=3.0 IG % 0.5 % L=0.0 H=1.1 2514-8 LOINC NRBC % 0.0 % L=0.0 H=0.0 05203-8 LOINC NEUT abs count 9.3 th/cmm L=1.6 H=8.4 751-8 LOINC H LYMPH abs count 2.8 th/cmm L=1.5 H=4.0 731-0 LOINC MONO abs count 0.6 th/cmm L=0.2 H=1.0 742-7 LOINC EOS abs count 0.1 th/cmm L=0.0 H=0.5 711-2 LOINC BASO abs count 0.1 th/cmm L=0.0 H=0.2 704-7 LOINC IG abs count 0.1 th/cmm L=0.0 H=0.1 21981-4 LOINC NRBC abs count 0.0 mil/cmm L=0.0 H=0.0 99143-9 LOINC RBC 5.95 mil/cmm L=3.90 H=5.40 789-8 LOINC H HEMOGLOBIN 17.3 gm/dL L=12.0 H=16.0 718-7 LOINC H HEMATOCRIT 52 % L=37 H=47 4544-3 LOINC H MCV 87 fL L=82 H=92 787-2 LOINC MCH 29.1 pg L=27.0 H=31.0 785-6 LOINC MCHC 33.3 % L=32.0 H=36.0 786-4 LOINC RDW-SD 43.7 fL L=39.0 H=49.0 788-0 LOINC PLATELET COUNT 216 th/cmm L=150 H=450 777-3 LOINC PHOSPHORUS SERUM - Collect D ate/Time: 04/29/2024 10:10 [facility] ID: [id number] [address] [place] [address], [id number] LOINC: 2777-1 Test Value Unit Reference Range Code Code System Flag PHOSPHORUS SERUM 2.8 mg/dL L=2.2 H=4.2 LIPASE* NEW - Collect Date/T viridiana: 04/29/2024 10:10 [facility] ID: [id number] [address], [place], [id number] LOINC: 3040-3 Test Value Unit Reference Range Code Code System Flag LIPASE. 19 U/L L=16 H=77 COMPREHENSIVE METABOLIC PANE L (CMP) - Collect Date/Time: 04/29/2024 10:10 [facility] ID: [id number] [address] [place] [address], [address] LOINC: 10191-8 Test Value Unit Reference Range Code Code System Flag GLUCOSE 101 mg/dL L=70 H=116 2345-7 LOINC BUN 8 mg/dL L=6 H=25 3094-0 LOINC CREATININE 0.86 mg/dL L=0.51 H=0.95 2160-0 LOINC SODIUM SERUM 141 mmol/L L=136 H=145 2951-2 LOINC POTASSIUM SERUM 3.2 mmol/L L=3.4 H=5.2 2823-3 LOINC L CHLORIDE SERUM 102 mmol/L L=96 H=110 2075-0 LOINC CARBON DIOXIDE (CO2) 26 mmol/L L=22 H=34 2028-9 LOINC ANION GAP 13.0 mmol/L 05781-5 LOINC CALCIUM SERUM 10.2 mg/dL L=8.2 H=10.2 43557-4 LOINC BILIRUBIN TOTAL 0.7 mg/dL L=0.0 H=1.3 1975-2 LOINC ALK. PHOS. 101 U/L L=46 H=116 6768-6 LOINC SGOT (AST) 9 U/L L=15 H=37 1920-8 LOINC L SGPT (ALT) 15 U/L L=12 H=78 1742-6 LOINC TOTAL PROTEIN 8.7 gm/dL L=6.0 H=8.0 2885-2 LOINC H ALBUMIN 4.3 gm/dL L=3.4 H=5.0 1751-7 LOINC AGE 43 years eGFR (non-Afr.Amer.) 73 mL/min 49762-4 LOINC eGFR (Afr-Cambodian) 88 mL/min 87808-0 LOINC MAGNESIUM SERUM* - Collect D ate/Time: 04/29/2024 10:10 [facility] ID: [id number] [address], [place], [address] LOINC: Test Value Unit Reference Range Code Code System Flag MAGNESIUM 1.6 mg/dL L=1.8 H=2.4 26858-3 LOINC L US ABD LIMITED ONE ORGAN - C ompleted: 04/29/2024 11:48 LOINC: [facility] RADIOLOGY [place], [place] [address] [facility] PACS MISSILE INSPECTOR REPORT Patient Name: LALO SAEED MRN: Sex: : Age: [id number] O 1980 43 Account: Accession: Admit: StayType: [id number] 04/29/2024 E Ordered: Order ID: Submitted: Ordering Provider: 04/29/2024 11:14 [id number] DANA MCCLOUD Completed: Technologist: Resulted: 04/29/2024 11:29 [facility] 04/29/2024 12:02 FINAL REPORT EXAM: US ABD LIMITED ONE ORGAN CLINICAL HISTORY: Reason US Abdomen: RUQ Pain TECHNIQUE: Ultrasound abdomen performed using standard protocol. COMPARISON: CT ABDOMEN/PELVIS WITH IV ONLY from 01/04/2021 FINDINGS: PANCREAS: Normal where visualized. LIVER: Normal. Hepatopedal flow in the Portal Vein. The liver measures in 16.0 cm length. GALLBLADDER: No evidence of cholelithiasis. No evidence of wall thickening. No pericholecystic fluid identified. BILIARY SYSTEM: Common bile duct measures < 7 mm. No intrahepatic biliary ductal dilation. KEANE'S SIGN: Negative. RIGHT KIDNEY: Kidney is normal in size. No evidence of renal calculi. No evidence of hydronephrosis. No renal mass or cyst identified. ASCITES: None seen. ABDOMINAL AORTA AND IVC: Visualized portions normal caliber. IMPRESSION: Normal sonographic appearance of the upper abdomen. DATA REPOSITORY: Electronically signed by: Jeramy Montes Dictated: 04/29/2024 12:02 Social History Type Status Start Date End Date Code Code Syst em Smoking History Current every day smoker [address] Sex Female Vital Signs Vital Sign Value Unit [place] Value [place] Unit Date/Time Recent/Initial? Code Code System Body Mass Index 26.64 kg/m2 04/29/2024 09:40 Initial 61823 -5 LOINC Systolic Blood Pressure 134 mm[Hg] 04/29/2024 13:24 Most Recent 8480- 6 LOINC Diastolic Blood Pressure 62 mm[Hg] 04/29/2024 13:24 Most Recent 8462- 4 LOINC Systolic Blood Pressure 170 mm[Hg] 04/29/2024 09:40 Initial 8480- 6 LOINC Diastolic Blood Pressure 91 mm[Hg] 04/29/2024 09:40 Initial 8462- 4 LOINC Body Surface Area 1.66 m2 04/29/2024 09:40 Initial 3140- 1 LOINC Height 154.940 0 cm 61.00 in 04/29/2024 09:40 Initial 8302- 2 INC O2 Saturation 99 % 2023 13:24 Most Recent 37053 -5 INC O2 Saturation 100 % 2023 09:40 Initial 32711 -5 INC Pulse 51.0 /min 04/29/2024 13:24 Most Recent 8867- 4 INC Pulse 60.0 /min 04/29/2024 09:40 Initial 8867- 4 LOINC Respiration 18 /min 04/29/20 13:24 Most Recent 9279- 1 LOINC Respiration 20 /min 04/29/20 09:40 Initial 9279- 1 INC Temperature 36.2 Adia 97.2 F 04/29/20 09:40 Initial 8310- 5 INC Weight 63.96 kg 141.00 lbs 04/29/2024 09:40 Initial 03378 -[address] [facility] Medications Medication Start Date End Date Route Frequency Dose Code Code System Medication Instructions Home Meds Carafate 1GM Oral Tablet 04/29/2024 Unknown ORAL NEEDED THREE TIMES A DAY 1 TABLET 20800808 RxNorm TAKE 1 TABLET ORAL NEEDED THREE TIMES A DAY FOR Pain Ondansetron 4MG Oral Tablet, Disintegrating 04/29/2024 Unknown ORAL NEEDED EVERY 6 HOURS 988869 RxNorm TAKE 1-2 TABLET ORAL NEEDED EVERY [...] ANKYLOSIS OF LOWER LEG JOINT active 2 71764820 SNOMED-CT HTN active 44454623 SNOMED-CT Allergies and Adverse Reactions Allergy Substance Reaction Severity Start Date Concern Status Co de Code System VIOXX Rash (SNOMED-CT: 483085239) Active PCN (PENICILLIN) Active Plan of Treatment Symptoms 02/24/2021 Personal Care Team Section Performer Name Performer Role Active Date Inactive Da te Imaging Narrative Notes [facility] RADIOLOGY [place], [place] [id number] [place] [address] PACS MISSILE INSPECTOR REPORT Patient Name: LALO SAEED MRN: Sex: : Age: [id number] O 1980 43 Account: Accession: Admit: StayType: [id number] 04/29/2024 E Ordered: Order ID: Submitted: Ordering Provider: 04/29/2024 11:14 [id number] DANA MCCLOUD Completed: Technologist: Resulted: 04/29/2024 11:29 [facility] 04/29/2024 12:02 FINAL REPORT EXAM: US ABD LIMITED ONE ORGAN CLINICAL HISTORY: Reason US Abdomen: RUQ Pain TECHNIQUE: Ultrasound abdomen performed using standard protocol. COMPARISON: CT ABDOMEN/PELVIS WITH IV ONLY from 01/04/2021 FINDINGS: PANCREAS: Normal where visualized. LIVER: Normal. Hepatopedal flow in the Portal Vein. The liver measures in 16.0 cm length. GALLBLADDER: No evidence of cholelithiasis. No evidence of wall thickening. No pericholecystic fluid identified. BILIARY SYSTEM: Common bile duct measures < 7 mm. No intrahepatic biliary ductal dilation. KEANE'S SIGN: Negative. RIGHT KIDNEY: Kidney is normal in size. No evidence of renal calculi. No evidence of hydronephrosis. No renal mass or cyst identified. ASCITES: None seen. ABDOMINAL AORTA AND IVC: Visualized portions normal caliber.
--- OUTSIDE RECORDS SUMMARY | 2024-06-01 18:23 | XMS_ITS ---
Author Name Unknown Address [address] [place] [address] [phone] Phone Organization Unknown Address [address] [place] [address] [phone] Phone Care Team Providers Care Roping Machine Tender Name Role Phone BRAYEDN ALEJANDRE Registered Nurse [place] Valadez Attending Unavailable RICARDO Jain Primary Unavailable UNLISTED PROVIDER - REQUESTED Xhandoff Un available Social History Type Status Start Date End Date Code Code Syst em Smoking History Current every day smoker [address] Sex Female Vital Signs Vital Sign Value Unit [place] Value [place] Unit Date/Time Recent/Initial? Code Code System Body Mass Index 30.23 kg/m2 05/27/2023 18:21 Initial 41421 -5 LOINC Systolic Blood Pressure 138 mm[Hg] 05/27/2023 19:56 Most Recent 8480- 6 LOINC Diastolic Blood Pressure 80 mm[Hg] 05/27/2023 19:56 Most Recent 8462- 4 LOINC Systolic Blood Pressure 174 mm[Hg] 05/27/2023 18:21 Initial 8480- 6 LOINC Diastolic Blood Pressure 87 mm[Hg] 05/27/2023 18:21 Initial 8462- 4 LOINC Body Surface Area 1.77 m2 05/27/2023 18:21 Initial 3140- 1 LOINC Height 154.940 0 cm 61.00 in 05/27/2023 18:21 Initial 8302- 2 LOINC O2 Saturation 97 % 2022 19:56 Most Recent 94529 -5 LOINC O2 Saturation 98 % 2022 18:21 Initial 71933 -5 LOINC Pulse 76.0 /min 05/27/2023 19:56 Most Recent 8867- 4 LOINC Pulse 59.0 /min 05/27/2023 18:21 Initial 8867- 4 LOINC Respiration 16 /min 05/27/20 19:56 Most Recent 9279- 1 LOINC Respiration 16 /min 05/27/20 18:21 Initial 9279- 1 LOINC Temperature 36.7 Adia 98.1 F 05/27/20 19:56 Most Recent 8310- 5 LOINC Temperature 36.4 Adia 97.5 F 05/27/20 18:21 Initial 8310- 5 LOINC Weight 72.57 kg 160.00 lbs 05/27/2023 18:21 Initial 87432 -7 LOINC Medications Medication Start Date End Date Route Frequency Dose Code Code System Medication Instructions Home Meds BCP 04/21/2019 05/27/2023 ORAL DAILY 1 TABLET RxNorm TAKE 1 TABLET ORAL DAILY Gabapentin 100MG Oral Capsule 04/21/2019 05/27/2023 ORAL DAILY 100 MILLIGRAMS 957725 RxNorm TAKE 100 MILLIGRAMS ORAL DAILY LORADAMED 10MG ORAL TABLET 04/21/2019 05/27/2023 ORAL DAILY 10 MILLIGRAMS RxNorm TAKE 10 MILLIGRAMS ORAL DAILY Lisinopril 10MG Oral Tablet 04/21/2019 05/27/2023 ORAL DAILY 10 MILLIGRAMS 311530 RxNorm TAKE 10 MILLIGRAMS ORAL DAILY RELPAX 20MG ORAL TABLET 04/21/2019 05/27/2023 ORAL NEEDED 20 MILLIGRAMS RxNorm TAKE 20 MILLIGRAMS ORAL NEEDED raNITIdine 150MG Oral Tablet 04/21/2019 05/27/2023 ORAL DAILY 150 MILLIGRAMS 806333 RxNorm TAKE 150 MILLIGRAMS ORAL DAILY Carafate 1GM Oral Tablet 04/29/2024 Unknown ORAL NEEDED THREE TIMES A DAY 1 TABLET 705936 RxNorm TAKE 1 TABLET ORAL NEEDED THREE TIMES A DAY FOR Pain Ondansetron 4MG Oral Tablet, Disintegrating 04/29/2024 Unknown ORAL NEEDED EVERY 6 HOURS 749867 RxNorm TAKE 1-2 TABLET ORAL NEEDED EVERY 6 HOURS FOR Nausea Assessment You had the following problems:ANKYLOSIS OF LOWER LEG JOINTHTN Hospital Discharge Instructions Should you have any questions prior to discharge, please contact a member of your healthcare team. If you have left the hospital and have any questions, please contact your primary care physician. Reason For Referral No Data Found Procedures Procedure Name Date Status Code Code Systisabela m Right knee completed 3413177 SNOMEDCT Problems Problem Start Date Resolved Date Status Code Code System ANKYLOSIS OF LOWER LEG JOINT active 2 25179565 SNOMED-CT HTN active 76021511 SNOMED-CT Allergies and Adverse Reactions Allergy Substance Reaction Severity Start Date Concern Status Co de Code System VIOXX Rash (SNOMED-CT: 171159564) Active PCN (PENICILLIN) Active Plan of Treatment Symptoms 02/24/2021 Encounters Encounter Diagnosis Start Date Code Code Sys tem Migraine 05/27/2023 37281134 SNOMED-CT Personal Care Team Section Performer Name Performer Role Active Date Inactive Da te
--- OUTSIDE RECORDS SUMMARY | 2024-06-01 18:24 | XMS_ITS ---
Author Name Unknown Address [address] [place] [address] [phone] Phone Organization Unknown Address [address] [place] [address] [phone] Phone Care Team Providers Care Laboratory Associate Name Role Phone GURWINDER LEONARDO MD Attending Uche MILLER Unavailable RICARDO MORRISSEY Primary Unavailable Results URINALYSIS WITH REFLEX CULT IF POSITIVE - Collect Date/Time: 07/15/2021 21:01 [facility] ID: [id number] - [id number] [address] [place], [place], [address] LOINC: 51812-0 Test Value Unit Reference Range Code Code System Flag COLLECTION MODE: Clean Catch Color YELLOW yellow 5778-6 LOINC Appearance CLOUDY clear 5767-9 LOINC Glucose urine NEGATIVE negative mg/dl 85081-4 LOINC Bilirubin NEGATIVE negative 5770-3 LOINC Ketones 15 negative mg/dl 2514-8 LOINC A Spec gravity >=1.030 1.003 - 1.030 5811-5 LOINC pH urine 6.0 5.0 - 7.0 2756-5 LOINC Protein >=300 negative mg/dl 63102-9 LOINC A Urobilinogen 1.0 <or= 1 EU/dl 06893-8 LOINC A Nitrite. NEGATIVE negative 5802-4 LOINC Blood LARGE negative 5794-3 LOINC A Leukocytes. MODERATE negative A MICROSCOPIC INDICATED WBCs. 10-25 0-5 / hpf 77901-2 LOINC RBCs >100 0-5 / hpf 07476-6 LOINC Epith cells 0-5 0-5 / hpf 77766-1 LOINC Cell types squamous Crystals none none Bacteria none none Mucus none none 8247-9 LOINC Casts none none /lpf 86683-9 LOINC Other 80108-9 LOINC Social History Type Status Start Date End Date Code Code Syst em Smoking History Current every day smoker 932287474 SNOMED CT Smoking History Current every day smoker [address] Sex Female Medications Medication Start Date End Date Route Frequency Dose Code Code System Medication Instructions Home Meds BCP 04/21/2019 05/27/2023 ORAL DAILY 1 TABLET RxNorm TAKE 1 TABLET ORAL DAILY Gabapentin 100MG Oral Capsule 04/21/2019 05/27/2023 ORAL DAILY 100 MILLIGRAMS 179241 RxNorm TAKE 100 MILLIGRAMS ORAL DAILY LORADAMED 10MG ORAL TABLET 04/21/2019 05/27/2023 ORAL DAILY 10 MILLIGRAMS RxNorm TAKE 10 MILLIGRAMS ORAL DAILY Lisinopril 10MG Oral Tablet 04/21/2019 05/27/2023 ORAL DAILY 10 MILLIGRAMS 755181 RxNorm TAKE 10 MILLIGRAMS ORAL DAILY RELPAX 20MG ORAL TABLET 04/21/2019 05/27/2023 ORAL NEEDED 20 MILLIGRAMS RxNorm TAKE 20 MILLIGRAMS ORAL NEEDED SUBOXONE 8MG-2MG SUBLINGUAL FILM 04/21/2019 10/06/2021 ORAL DAILY 8 MILLIGRAMS RxNorm TAKE 8 MILLIGRAMS ORAL DAILY raNITIdine 150MG Oral Tablet 04/21/2019 05/27/2023 ORAL DAILY 150 MILLIGRAMS 976167 RxNorm TAKE 150 MILLIGRAMS ORAL DAILY Carafate 1GM Oral Tablet 04/29/2024 Unknown ORAL NEEDED THREE TIMES A DAY 1 TABLET 744298 RxNorm TAKE 1 TABLET ORAL NEEDED THREE TIMES A DAY FOR Pain Ondansetron 4MG Oral Tablet, Disintegrating 04/29/2024 Unknown ORAL NEEDED EVERY 6 HOURS 680838 RxNorm TAKE 1-2 TABLET ORAL NEEDED EVERY [...] ANKYLOSIS OF LOWER LEG JOINT active 2 41150384 SNOMED-CT HTN active 09966603 SNOMED-CT Allergies and Adverse Reactions Allergy Substance Reaction Severity Start Date Concern Status Co de Code System VIOXX Rash (SNOMED-CT: 711869805) Active PCN (PENICILLIN) Active Plan of Treatment Symptoms 02/24/2021 Encounters Encounter Diagnosis Start Date Code Code Sys tem Acute cystitis with hematuria 07/15/2021 SNOMED-CT Personal Care Team Section Performer Name Performer Role Active Date Inactive Da te
--- OUTSIDE RECORDS SUMMARY | 2024-06-01 18:24 | XMS_ITS ---
Author Name Unknown Address [address] [place] [address] [phone] Phone Organization Unknown Address [address] [place] [address] [phone] Phone Care Team Providers Care Testing And Regulating Chief Name Role Phone ADELA BURNS MD Attending Unavailable JOSE SOSA MD ER Unavailable RICARDO MORRISSEY Primary Unavailable Social History Type Status Start Date End Date Code Code Syst em Smoking History Current every day smoker 767927739 SNOMED CT Smoking History Current every day smoker [address] Sex Female Medications Medication Start Date End Date Route Frequency Dose Code Code System Medication Instructions Home Meds BCP 04/21/2019 05/27/2023 ORAL DAILY 1 TABLET RxNorm TAKE 1 TABLET ORAL DAILY Gabapentin 100MG Oral Capsule 04/21/2019 05/27/2023 ORAL DAILY 100 MILLIGRAMS 631452 RxNorm TAKE 100 MILLIGRAMS ORAL DAILY LORADAMED 10MG ORAL TABLET 04/21/2019 05/27/2023 ORAL DAILY 10 MILLIGRAMS RxNorm TAKE 10 MILLIGRAMS ORAL DAILY Lisinopril 10MG Oral Tablet 04/21/2019 05/27/2023 ORAL DAILY 10 MILLIGRAMS 696761 RxNorm TAKE 10 MILLIGRAMS ORAL DAILY RELPAX 20MG ORAL TABLET 04/21/2019 05/27/2023 ORAL NEEDED 20 MILLIGRAMS RxNorm TAKE 20 MILLIGRAMS ORAL NEEDED SUBOXONE 8MG-2MG SUBLINGUAL FILM 04/21/2019 10/06/2021 ORAL DAILY 8 MILLIGRAMS RxNorm TAKE 8 MILLIGRAMS ORAL DAILY raNITIdine 150MG Oral Tablet 04/21/2019 05/27/2023 ORAL DAILY 150 MILLIGRAMS 418007 RxNorm TAKE 150 MILLIGRAMS ORAL DAILY Carafate 1GM Oral Tablet 04/29/2024 Unknown ORAL NEEDED THREE TIMES A DAY 1 TABLET 493380 RxNorm TAKE 1 TABLET ORAL NEEDED THREE TIMES A DAY FOR Pain Ondansetron 4MG Oral Tablet, Disintegrating 04/29/2024 Unknown ORAL NEEDED EVERY 6 HOURS 758255 RxNorm TAKE 1-2 TABLET ORAL NEEDED EVERY [...] ANKYLOSIS OF LOWER LEG JOINT active 2 44327773 SNOMED-CT HTN active 01679344 SNOMED-CT Allergies and Adverse Reactions Allergy Substance Reaction Severity Start Date Concern Status Co de Code System VIOXX Rash (SNOMED-CT: 970087818) Active PCN (PENICILLIN) Active Plan of Treatment Symptoms 02/24/2021 Encounters Encounter Diagnosis Start Date Code Code Sys tem Migraine, unspecified, intra ctable, with status migrainosus 06/05/2021 SNOMED-CT Personal Care Team Section Performer Name Performer Role Active Date Inactive Da te
== END 2024-06-01 18:20 | disposition home or self-care (01) ==
LOC: NCHCN 18:19
PROVIDERS: PCP Nurse Practitioner Community Health; Visit Provider Family Medicine
DX: C44.612 Basal cell carcinoma of skin of right upper limb, including shoulder (principal)
CPT/HCPCS: 88305

== ENCOUNTER 2024-08-10 18:29 | Outpatient (REF) | payer SELFPAY ==
--- OUTSIDE RECORDS SUMMARY | 2024-08-10 18:31 | XMS_ITS ---
Author Organization Unknown Address [address] [place] [address] [phone] Phone Care Team Providers Care Auditing Coder Name Role Phone DANNIELLE YOUSSEF Registered Nurse Unavailable FAHAD Cummings Attending Unavailable RICARDO Jain Primary Unavailable UNLISTED PROVIDER - REQUESTED Xhandoff Un available Social History Type Status Start Date End Date Code Code Syst em Smoking History Current every day smoker [address] Sex Female Vital Signs Vital Sign Value Unit [place] Value [place] [facility] Date/Time Recent/Initial? Code Code System Body Mass Index 27.40 kg/m2 10/06/2021 15:40 Initial 79781 -5 LOINC Systolic Blood Pressure 118 mm[Hg] [...] Saturation 98 % 2020 17:22 Most Recent 50867 -5 LOINC O2 Saturation 100 % 2020 15:40 Initial 43122 -5 LOINC Pulse 72.0 /min 10/06/2021 17:22 Most Recent 8867- 4 LOINC Pulse 63.0 /min 10/06/2021 15:40 Initial 8867- 4 LOINC Respiration 18 /min 10/06/20 17:22 Most Recent 9279- 1 [facility] Respiration 20 /min 10/06/20 15:40 Initial 9279- 1 [facility] Temperature 35.8 Adia 96.4 F 10/06/20 15:40 Initial 8310- 5 [facility] Weight 65.77 kg 145.00 lbs 10/06/2021 15:40 Initial 24648 -7 [facility] Medications Medication Start Date End Date Route Frequency Dose Code Code System Medication Instructions Home Meds BCP 04/21/2019 05/27/2023 ORAL DAILY 1 TABLET RxNorm TAKE 1 TABLET ORAL DAILY Gabapentin 100MG Oral Capsule 04/21/2019 05/27/2023 ORAL DAILY 100 MILLIGRAMS 726000 RxNorm TAKE 100 MILLIGRAMS ORAL DAILY LORADAMED 10MG ORAL TABLET 04/21/2019 05/27/2023 ORAL DAILY 10 MILLIGRAMS RxNorm TAKE 10 MILLIGRAMS ORAL DAILY Lisinopril 10MG Oral Tablet 04/21/2019 05/27/2023 ORAL DAILY 10 MILLIGRAMS 390573 RxNorm TAKE 10 MILLIGRAMS ORAL DAILY RELPAX 20MG ORAL TABLET 04/21/2019 05/27/2023 ORAL NEEDED 20 MILLIGRAMS RxNorm TAKE 20 MILLIGRAMS ORAL NEEDED SUBOXONE 8MG-2MG SUBLINGUAL FILM 04/21/2019 10/06/2021 ORAL DAILY 8 MILLIGRAMS RxNorm TAKE 8 MILLIGRAMS ORAL DAILY raNITIdine 150MG Oral Tablet 04/21/2019 05/27/2023 ORAL DAILY 150 MILLIGRAMS 478101 RxNorm TAKE 150 MILLIGRAMS ORAL DAILY Carafate 1GM Oral Tablet 04/29/2024 Unknown ORAL NEEDED THREE TIMES A DAY 1 TABLET 596638 RxNorm TAKE 1 TABLET ORAL NEEDED THREE TIMES A DAY FOR Pain Ondansetron 4MG Oral Tablet, Disintegrating 04/29/2024 Unknown ORAL NEEDED EVERY 6 HOURS 286195 RxNorm TAKE 1-2 TABLET ORAL NEEDED EVERY [...] ANKYLOSIS OF LOWER LEG JOINT active 2 67220953 SNOMED-CT HTN active 46998311 SNOMED-CT Allergies and Adverse Reactions Allergy Substance Reaction Severity Start Date Concern Status Co de Code System VIOXX Rash (SNOMED-CT: 008117957) Active PCN (PENICILLIN) Active Plan of Treatment Symptoms 02/24/2021 Encounters Encounter Diagnosis Start Date Code Code Sys tem Migraine 10/06/2021 28277477 SNOMED-CT Personal Care Team Section Performer Name Performer Role Active Date Inactive Da te
--- OUTSIDE RECORDS SUMMARY | 2024-08-10 18:32 | XMS_ITS ---
Author Organization Unknown Address [address] [place] [address] [phone] Phone Care Team Providers Care Pharm Spec Name Role Phone OCTAVIO HUTCHINS Registered Nurse Unavailable ADELA Cummings Attending Unavailable SHAHIDA MILLER Unavailable YURY Frausto Primary Unavailable UNLISTED PROVIDER - REQUESTED Xhandoff Un available Social History Type Status Start Date End Date Code Code Syst em Smoking History Current every day smoker [address] Sex Female Vital Signs Vital Sign Value Unit [place] [facility] [place] [facility] Date/Time Recent/Initial? Code Code System Body Mass Index 30.23 kg/m2 09/04/2023 16:28 Initial 84472 -5 LOINC Systolic Blood Pressure 147 mm[Hg] [...] Saturation 98 % 2022 19:00 Most Recent 68101 -5 LOINC O2 Saturation 100 % 2022 16:28 Initial 68621 -5 LOINC Pulse 55.0 /min 09/04/2023 19:00 Most Recent 8867- 4 LOINC Pulse 55.0 /min 09/04/2023 16:28 Initial 8867- 4 LOINC Respiration 16 /min 09/04/20 19:00 Most Recent 9279- 1 LOINC Respiration 20 /min 09/04/20 16:28 Initial 9279- 1 LOINC Temperature 36.9 Adia 98.4 F 09/04/20 16:28 Initial 8310- 5 LOINC Weight 72.57 kg 160.00 lbs 09/04/2023 16:28 Initial 87556 -7 LOINC Medications Medication Start Date End Date Route Frequency Dose Code Code System Medication Instructions Home Meds Carafate 1GM Oral Tablet 04/29/2024 Unknown ORAL NEEDED THREE TIMES A DAY 1 TABLET 20800808 RxNorm TAKE 1 TABLET ORAL NEEDED THREE TIMES A DAY FOR Pain Ondansetron 4MG Oral Tablet, Disintegrating 04/29/2024 Unknown ORAL NEEDED EVERY 6 HOURS 972645 RxNorm TAKE 1-2 TABLET ORAL NEEDED EVERY [...] ANKYLOSIS OF LOWER LEG JOINT active 2 50262268 SNOMED-CT HTN active 31515286 SNOMED-CT Allergies and Adverse Reactions Allergy Substance Reaction Severity Start Date Concern Status Co de Code System VIOXX Rash (SNOMED-CT: 996173884) Active PCN (PENICILLIN) Active Plan of Treatment Symptoms 02/24/2021 Encounters Encounter Diagnosis Start Date Code Code Sys tem Migraine 09/04/2023 01353072 SNOMED-CT Personal Care Team Section Performer Name Performer Role Active Date Inactive Da te
--- OUTSIDE RECORDS SUMMARY | 2024-08-10 18:32 | XMS_ITS ---
Author Organization Unknown Address [address] [place] [address] [phone] Phone Care Team Providers Care Consumer Loan Officer Name Role Phone BRAYDEN ALEJANDRE Registered Nurse Rome Valadez Attending Unavailable RICARDO Jain Primary Unavailable UNLISTED PROVIDER - REQUESTED Xhandoff Un available Social History Type Status Start Date End Date Code Code Syst em Smoking History Current every day smoker [address] Sex Female Vital Signs Vital Sign Value Unit [place] [facility] [place] [facility] Date/Time Recent/Initial? Code Code System Body Mass Index 30.23 kg/m2 05/27/2023 18:21 Initial 78458 -5 LOINC Systolic Blood Pressure 138 mm[Hg] [...] Saturation 97 % 2022 19:56 Most Recent 85287 -5 LOINC O2 Saturation 98 % 2022 18:21 Initial 11184 -5 LOINC Pulse 76.0 /min 05/27/2023 19:56 [...] 72.57 kg 160.00 lbs 05/27/2023 18:21 Initial 78569 -7 [facility] Medications Medication Start Date End Date Route Frequency Dose Code Code System Medication Instructions Home Meds BCP 04/21/2019 05/27/2023 ORAL DAILY 1 TABLET RxNorm TAKE 1 TABLET ORAL DAILY Gabapentin 100MG Oral Capsule 04/21/2019 05/27/2023 ORAL DAILY 100 MILLIGRAMS 808015 RxNorm TAKE 100 MILLIGRAMS ORAL DAILY LORADAMED 10MG ORAL TABLET 04/21/2019 05/27/2023 ORAL DAILY 10 MILLIGRAMS RxNorm TAKE 10 MILLIGRAMS ORAL DAILY Lisinopril 10MG Oral Tablet 04/21/2019 05/27/2023 ORAL DAILY 10 MILLIGRAMS 819030 RxNorm TAKE 10 MILLIGRAMS ORAL DAILY RELPAX 20MG ORAL TABLET 04/21/2019 05/27/2023 ORAL NEEDED 20 MILLIGRAMS RxNorm TAKE 20 MILLIGRAMS ORAL NEEDED raNITIdine 150MG Oral Tablet 04/21/2019 05/27/2023 ORAL DAILY 150 MILLIGRAMS 118529 RxNorm TAKE 150 MILLIGRAMS ORAL DAILY Carafate 1GM Oral Tablet 04/29/2024 Unknown ORAL NEEDED THREE TIMES A DAY 1 TABLET 370462 RxNorm TAKE 1 TABLET ORAL NEEDED THREE TIMES A DAY FOR Pain Ondansetron 4MG Oral Tablet, Disintegrating 04/29/2024 Unknown ORAL NEEDED EVERY 6 HOURS 087542 RxNorm TAKE 1-2 TABLET ORAL NEEDED EVERY [...] Procedures Procedure Name Date Status Code Code Syste m Right knee completed 9079878 SNOMEDCT Problems Problem Start Date Resolved Date Status Code Code System ANKYLOSIS OF LOWER LEG JOINT active 2 65997046 SNOMED-CT HTN active 58963857 SNOMED-CT Allergies and Adverse Reactions Allergy Substance Reaction Severity Start Date Concern Status Co de Code System VIOXX Rash (SNOMED-CT: 283760880) Active PCN (PENICILLIN) Active Plan of Treatment Symptoms 02/24/2021 Encounters Encounter Diagnosis Start Date Code Code Sys tem Migraine 05/27/2023 46387466 SNOMED-CT Personal Care Team Section Performer Name Performer Role Active Date Inactive Da te
--- OUTSIDE RECORDS SUMMARY | 2024-08-10 18:33 | XMS_ITS | Encounter Summary ---
Author Organization [facility] Address [address] [place] [address] Care Team Providers Care Stamping Machine Operator Name Role Phone Maryan Moody MD Primary Care Provider [phone] Reason for Visit * Reason Comments Advice Only Encounter Details Date Type Department Care Team (Late st Contact Info) Description 12/17/2023 10:30 EST Telemedicine [facility] OBGYN Services - [address] [phone] Desirae Wu MD [address] [place] [address], [address] [place] [address] Abnormal uterine bleeding (AUB) (Primary Dx); Sterilization; Retained products of conception after delivery with complications; Obesity (BMI 30-39.9); Encounter for preoperative assessment Social History Tobacco Use Types Packs/Day Years Used Date Smoking Tobacco: Every Day Cigarettes Smokeless Tobacco: Never Alcohol Use Standard Drinks/Week Comments No 0 (1 standard drink = 0.6 oz pur e alcohol) AUDIT-C Answer Date Recorded Frequency of Alcohol Consumption Never 03/20/2019 Average Number of Drinks Not on file 019 Frequency of Binge Drinking Not on file 03/02 Interpersonal Safety Answer Date Record ed Physically Hurt Never 07/03/2020 Verbally Threaten Not on file 07/03/2020 Sex and Gender Information Value Date Recorded Sex Assigned at Not on file Gender Identity Female 04/18/2020 12:56 EDT Sexual Orientation Not on file documented as of this encounter Functional Status Functional Status Response Date of Assess ment Because of a physical, menta l, or emotional condition, does this person have difficulty doing errands alone such as visiting a doctor's office or shopping? Yes 03/20/2019 Cognitive Status Response Date of Assessm ent Because of a physical, menta l, or emotional condition, does this person have serious difficulty concentrating, remembering, or making decisions? Yes 03/20/2019 documented as of this encounter Progress Notes * Desirae Wu MD - 12/17/2023 1030 EST CC: Abnormal uterine bleeding, desires permanent sterilization Martha Pre-op History of Present Illness: Thank you for sending Martha Sanchez for a SUBSTANCE ABUSE THERAPIST consult. As you know, Martha is a 43 y.o. who presents to discuss abnormal uterine bleeding and permanent sterilization. Plan is for hysteroscopy, D&C, diagnostic laparoscopy, bilateral salpingectomy for permanent sterilization. Below is from our initial conversation. Of note today Martha request that she not be sent home with any prescription pain medicines. She will take [id number] medications for pain relief. Martha states that she has noted that she has significant endometriosis since the age of 23 when she had diagnostic laparoscopy. She states that though she has sharp pain that feels like contractionswhen she is bleeding, her main issue at this time is near daily dark brown bleeding that has happened since her C- section in December 2022. This was a stat for prolapsed cord at a [facility] in [facility]. Since that time she has had a Nexplanon in place and has had near daily bleeding that she describes as dark brown and with a foul- smelling odor. She also states that she has had frequent UTIs and on and off fevers since the . She had a recent ultrasound which showed Het erogenous endometrium with echogenic focus at the fundus. Endometrium with indistinct borders. She states that she never had this type of bleeding in the past. In fact in the past she was on either continuous OCPs or Nexplanon and was amenorrheic for years. She got within the month of removing her Nexplanon and then went on to have a 34-week delivery in the context of preeclampsia and then a for prolapsed cord. She also states that she had 2 or 3 LEEP procedures in her late teen years. Since that time her cervix has been stenotic. She has not had any abnormal Paps since her early 20s. She has no history of sexually transmitted infections. She strongly desires permanent sterilization and almost did this atthe time of her . She also is wishing for hysterectomy related to her bleeding and pain OB hx: -1-0-3 Full-term x2 then x1 SUBSTANCE ABUSE THERAPIST hx: As above abnl paps No h/o STIs Past Medical History: Diagnosis Date Arthritis Asthma Depression Essential hypertension On the medication Heart murmur Opioid use disorder On Suboxone Thyroid disease Past Surgical History: Procedure Laterality Date ABDOMEN SURGERY Significant endometriosis noted per patient. At age 23 SECTION 12/2022 Stat for prolapsed cord in the context of induction for hypertensive disorder FRACTURE SURGERY Fam hx: no breast, ovarian, uterine, colon cancer in family No family history on file. Current Outpatient Medications on File Prior to Visit Medication Sig Dispense Refill buprenorphine HCl/naloxone HCl (SUBOXONE SL) Place 10 mg under the tongue daily. gabapentin (NEURONTIN) 300 mg capsule Take 1 Capsule by mouth 2 times daily. levothyroxine (SYNTHROID) 50 mcg tablet Take 88 mcg by mouth daily. 0 meloxicam (MOBIC) 15 mg tablet TAKE 1 TABLET BY MOUTH EVERY DAY. DO NOT TAKE OTHER NSAIDS WITH THISMED olmesartan (BENICAR) 40 mg tablet Take 1 Tablet by mouth daily. No current facility-administered medications on file prior to visit. Allergies Allergen Reactions Penicillins Vioxx O: There were no vitals taken for this visit. GEN: NAD Video visit Assessment and Plan In summary, Martha Sanchez is a 43 y.o. with abnormal uterine bleeding and likely endometriosis, desiring permanent sterilization. In terms of the abnormal uterine bleeding, Nexplanon can certainly cause this. It is suspicious however that this had started after her section. In fact on ultrasound there is an echogenic focus at the fundus which may represent retained products of some kind. It is also interesting that she has been noting a smell and on and off fevers as well as frequent UTI. I discussed these factors with Martha. I think it is reasonable to sample the endometrium and in fact the best way to do this would be hysteroscopy D&C in the operating room. She notes that her cervix has been found to be stenotic, additionally hysteroscopy will give us the opportunity to directly visualize any lesions. I did let her know however that the Nexplanon may also be a factor in this which will need ongoing treatment. In terms of her endometriosis it sounded significant from the surgery that was many many years ago.She does seem to have cyclic pain but I think at this time it is being overridden by concerned about abnormal uterine bleeding. At this time I think it is reasonable to leave the Nexplanon in place if we can as potential treatment for endometriosis. It may be that in the future she is a candidate for hysterectomy for the treatment of endometriosis but we need more information before we make that decision. She does desire permanent sterilization however. This will give us the opportunity to visualize theabdomen as well and plan for potential hysterectomy. I counseled her on the risks and benefits of bilateral salpingectomy. She understand that there is a failure rate but it is quite low. If it is successful she will never need another form of control again. She understands that there are other forms of control including male still sterilization. I described the procedure (hysteroscopy, D&C, laparoscopic bilateral salpingectomy) including risks of surgery (infection, bleeding, injury to nearby organs, vessels, nerves) and risks associatedwith anesthesia. I also discussed pre-op, hospital stay (outpatient procedure) and recuperation (2 to 5 days out of work, ibuprofen/Tylenol, patient will not receive prescription opioids per her request. This is not a requirement for this type of surgery. She will do well with ibuprofen and Tylenol.). Pt asked questions and questions were answered. A consent form was signed at a previous visit with Dr. Langley. Thank you for allowing me to participate in the care of your patient. Please do not hesitate to contact me with questions or concerns. Today's visit was provided through telemedicine audio-visual conferencing: Consent: The concept of telemedicine?? has been described to the patient. Patient has been informed of theanticipated benefits and possible risks. Patient understands the information provided regarding telemedicine, has had the opportunity to ask questions about this information, and all questions have been answered to patient's satisfaction. Patient consents for the use of telemedicine in his/her medical care and authorizes the transmission of any relevant medical information to providers and their staff involved in patient's medical or mental health care. The location of the patient :home The location of the provider: office The following people (and their respective roles) participated in today's encounter: Martha Sanchez, patient Desirae Wu MD, provider The audio-video application used to conduct the visit was Zoom. I spent a total of 20 minutes on the date of this encounter meeting with the patient and reviewing documentation/coordinating care as described in the above note. Desirae Wu MD, 12/17/2023 10:09 documented in this encounter Plan of Treatment Upcoming Encounters Date Type Department Care Team (Late st Contact Info) Description 09/07/2024 15:45 EDT Office Visit [facility] [address] [place] [phone] Alvino Schmid MD [address] [place] [address] [address] [place] [phone] documented as of this encounter Visit Diagnoses Diagnosis Abnormal uterine bleeding (AUB)- Primary Sterilization Retained products of conception after delivery with complications Retained portions of placenta or membranes, without hemorrhage, delivered, with mention of complication Obesity (BMI 30-39.9) Obesity, unspecified Encounter for preoperative assessment documented in this encounter Care Teams Stamping Machine Operator Relationship Specialty Start Date End Date Maryan Moody MD [address] [place] [phone] PCP - General 09/13/23 documented as of this encounter
--- OUTSIDE RECORDS SUMMARY | 2024-08-10 18:33 | XMS_ITS | Clinical Summary ---
Author Organization [facility] Address [address] [place] [address] Care Team Providers Care Incident Coordinator Name Role Phone Maryan Modoy MD Primary Care Provider [phone] Allergies Active Allergy Reactions Criticality Noted Date Comments Penicillins 03/20/2019 Vioxx 03/15/2022 Medications Medication Sig Dispensed Refills Start Date End Date Status gabapentin (NEURONTIN) 300 mg capsule Take 1 Capsule by mouth 2 times daily. Active meloxicam (MOBIC) 15 mg tablet TAKE 1 TABLET BY MOUTH EVERY DAY. DO NOT TAKE OTHER NSAIDS WITH THIS MED 10/21/2023 Active olmesartan (BENICAR) 40 mg tablet Take 1 Tablet by mouth daily. 09/04/2023 Active omeprazole (PRILOSEC) 20 mg capsule Take 1 Capsule by mouth daily. 04/28/2024 Active ondansetron (ZOFRAN-ODT) 4 mg disintegrating tablet Take 1 Tablet by mouth every 8 hours as needed. 04/29/2024 Active ZOLMitriptan (ZOMIG-ZMT) 5 mg disintegrating tablet Take 1 Tablet by mouth as needed. 06/01/2024 Active levothyroxine (SYNTHROID) 88 mcg tablet Take 1 Tablet by mouth daily. 03/20/2024 Active buprenorphine 100 mg/0.5 mL solution, extended rel syringe Inject 0.5 mL into the skin every 28 days. Daily Max: 100 mg Active Active Problems Patient Care Coordination No te Formatting of this note migh t be different from the original. Ruby Chavez 01/03/2024 9:02 PATIENT HAS BEEN IN CONTACT WITH MEDICAID ABOUT CORRECTING LAST NAME TO LAURA - NAME IN PAYER MEMBRENO LISTED [place] L, PATIENT'S LEGAL NAME IS LAURA IT APPEARS ON SAFEMAKER LICENSE REFERRED BY Kierra Cunningham APRN MFLitzy CONSULT ONLY Problem Noted Date Diagnosed Date Abnormal uterine bleeding (AUB) 09/24/2023 Obesity (BMI 30-39.9) 09/24/2023 Sterilization 09/24/2023 Opioid use disorder 03/15/2022 Overview: In rx since 2006 No injection Only other substance THC Has not had counselor in a year-at [facility] Prescribed [facility] Last return to use 6-7 yrs ago No cocaine, stimulants Did not disc Hep C screen-needs if has not had Cont suboxone Disc reduce smoking to reduce POPEYE risk Plans move in 1 month and new family: disc ensure stability prior to wean Suboxone Last Assessment & Plan: In rx since 2006 No injection Only other substance THC Has not had counselor in a year-at [facility] Prescribed [facility] Last return to use 6-7 yrs ago No cocaine, stimulants Did not disc Hep C screen-needs if has not had Cont suboxone Disc reduce smoking to reduce POPEYE risk Plans move in 1 month and new family: disc ensure stability prior to wean Suboxone Primary hypertension 03/15/2022 Overview: Dx age 22's Has been on meds since then No renal disease was on clonidine and lisinopril-stopped few days ago Disc importance of bp control-has PCP appt tomorrow rec initiate nifedipine 30 XL and titrate to normotensive Consider baseline maternal echo for long standing HTN Needs Cr prior to Last Assessment & Plan: Dx age 22's Has been on meds since then No renal disease was on clonidine and lisinopril-stopped few days ago Disc importance of bp control-has PCP appt tomorrow rec initiate nifedipine 30 XL and titrate to normotensive Consider baseline maternal echo for long standing HTN Needs Cr prior to Antepartum multigravida of advanced maternal age 0403/15/2022 Overview: Disc increased risk SAB Disc NIPT for genetics Disc increased risk GDm, preeclmampsia Last Assessment & Plan: Disc increased risk SAB Disc NIPT for genetics Disc increased risk GDm, preeclmampsia Encounter for preconception consultation 022 Overview: Nexplanon out tomorrow Disc PNV-taking Disc ASA 12 wks in to reduce risk preeclampsia Disc follow growth, testing due to HTN Disc risk GDm, preeclampsia Disc excellent change good preg outcome Disc smoking cessation as most important (after bp control) for preg outcome and POPEYE (has patch, inhaler, 802quit line) Needs Hep C screen and Cr prior to Last Assessment & Plan: Nexplanon out tomorrow Disc PNV-taking Disc ASA 12 wks in to reduce risk preeclampsia Disc follow growth, testing due to HTN Disc risk GDm, preeclampsia Disc excellent change good preg outcome Disc smoking cessation as most important (after bp control) for preg outcome and POPEYE (has patch, inhaler, 802quit line) Needs Hep C screen and Cr prior to Chronic pain due to trauma 03/15/2022 Overview: Knee pain due to trauma Gabapentin 900 TID now weaned to 600 BID Cont wean to minimal dose Last Assessment & Plan: Knee pain due to trauma Gabapentin 900 TID now weaned to 600 BID Cont wean to minimal dose History of delivery 03/15/2022 Overview: 36 wks S/p leep x3 Reasonable to assess cx length 16 wks and if nl then 20 wks; if any question then q2 wks from 16 wks Last Assessment & Plan: 36 wks S/p leep x3 Reasonable to assess cx length 16 wks and if nl then 20 wks; if any question then q2 wks from 16 wks Encounters Date Type Department Care Team Description 06/09/2024 Specialty Pharmacy [facility] [address] [place] [address] Melissa Wright RPH Set up initial fill for Addiction Medicine, Patient Education for Addiction Medicine, Prospective Review for Addiction Medicine, Started Clinical Follow-up (2x annually) for Addiction Medicine 06/05/2024 10:27 EDT - 06/05/2024 23:59 EDT Hospital Encounter [facility] Non-Invasive Cardiology [address], [place] [address] [phone] Nonrheumatic aortic (valve) insufficiency Discharge Disposition: Home or Self Care 06/02/2024 14:05 EDT - 06/02/2024 23:59 EDT Hospital Encounter [facility] Non-Invasive Cardiology [address], [place] [address] [phone] Nonrheumatic aortic (valve) insufficiency Discharge Disposition: Home or Self Care 06/02/2024 13:59 EDT - 06/02/2024 14:04 EDT Hospital Encounter [facility] Non-Invasive Cardiology [address] [place] [address] Nonrheumatic aortic (valve) insufficiency Discharge Disposition: Home or Self Care 06/02/2024 Lab Requisition [facility]ology [facility] Laboratory Medicine - [address] [address] Maryan Moody MD Personal history of neoplasm of uncertain behavior; Neoplasm of uncertain behavior of skin 05/27/2024 Transcribe Orders [facility] Admitting [address] [place] [address] Maryan Moody MD Nonrheumatic aortic (valve) insufficiency (Primary Dx) from Last 3 Months Surgical History Surgery Date Site/Laterality Comments ABDOMEN SURGERY Significant endometriosis noted per patient. At age 23 SECTION 12/02/2022 - 01/01/2023 Stat for prolapsed cord in the context of induction for hypertensive disorder ANKLE SURGERY Right X 2 KNEE ARTHROSCOPY Right X 3 Medical History Medical History Date Comments Arthritis Asthma 12/30/2023 exace rbated with URI's Depression Heart murmur 12/30/2023 - per pt diagnosed a few years ago, pt thinks she had cardiac workup but was not sure Thyroid disease Essential hypertension Noted : tx w/ meds Opioid use disorder On Suboxone Hypothyroidism History of general anesthesia History of epidural anesthesia Does not exercise 12/30/2022 no formal routine, pt can tolerate 2 flights of stairs History of COVID-19 covid + ~ - pt did not take paxlovid GERD (gastroesophageal reflux disease) 12/30/2023 per pt report, wakes pt at night approx 1X per week Wears dentures 12/30/2023 upper s & lowers Social History Tobacco Use Types Packs/Day Years Used Date Smoking Tobacco: Every Day Cigarettes Smokeless Tobacco: Never Tobacco Cessation:Ready to Q uit: Not Asked; Counseling Given: Not Answered Alcohol Use Standard Drinks/Week Comments No 0 [...] 12:56 EDT Sexual Orientation Not on file Obstetrics History Para Term AB IAB SAB Ectopic Multiple Livin g Live Births 3 3 1 2 3 3 Date Outcome GA Total Labor Labor/2nd/3rd Weight Sex Type Anes PTL Mayra A1 A5 Name Clin CS-LT ranv 1997 Term 40w0 d 3402 g (7 lb 8 oz) F Vag-S pont Living 2004 36w0 d 2523 g (5 lb 9 oz) F Vag-S pont Last Filed Vital Signs Vital Sign Reading Time Taken Comments Blood Pressure 130/45 06/02/2024 1505 EDT Pulse 91 03/20/2019 1321 EDT Temperature 36.3 ??C (97.3 ??F) 01/03/2024 1519 EST Respiratory Rate 12 01/03/2024 1502 EST Oxygen Saturation 96% 01/03/2024 1502 EST Inhaled Oxygen Concentration - - Weight 70.8 kg (156 lb 1.4 oz) 01/03/[address] Height 154.9 cm (5' 1) 01/03/2024 0929 EST Body Mass Index 29.49 01/03/2024 0929 EST Plan of Treatment Upcoming Encounters Date Type Department Care Team (Late st Contact Info) Description 09/07/2024 15:45 EDT Office Visit [facility] Card[facility] Clinic [address], [place] [address] Alvino Schmid MD [address] [facility] [address] [place] [address] Health Maintenance Due Date Last Done Comments Asthma Action Plan 1982 Lung Function Test (Spirometry) 1982 Pneumococcal Immunization (1 of 2 - PCV) 1988 Hepatitis B Vaccine (1 of 3 - 19+ 3-dose series) 2001 Tetanus (Adult) Immunization 2001 COVID-19 Vaccine ( season) 2024 Pap Smear (Cervical Cancer Screening) 01/10/202508/2022, 02/26/2017 Cervical Cancer Screening 01/10/2027 HPV/Cotest (Cervical Cancer Screening) 01/10/2027, 01/10/2022 Hepatitis C Screen Completed 12/09/2023, 08/03/2021 Procedures Procedure Name Priority Date/Time Associated Diagnosis Comments HOLTER MONITOR SCAN - 48 Routine 06/05/2024 10:27 EDT Nonrheumatic aortic (valve) insufficiency HOLTER MONITOR - 48 Routine 06/02/2024 1 4:43 EDT Nonrheumatic aortic (valve) insufficiency TRANSTHORACIC ECHO (TTE) COMPLETE Routine 06/02/2024 14:35 EDT Nonrheumatic aortic (valve) insufficiency SURGICAL PATHOLOGY Today 06/01/2024 15 :00 EDT Personal history of neoplasm of uncertain behavior Neoplasm of uncertain behavior of skin HEPATITIS C AB W REFLEX TO HCV RNA BY PCR Routine 12/09/2023 16:00 EST PAP TEST Today 01/10/2022 11:45 EST Encounter for general adult medical examination without abnormal findings Encounter for screening for malignant neoplasm of cervix from Last 3 Months or Most Recently Relevant to Health Maintenance Results * HOLTER MONITOR SCAN - 48 (06/05/2024 10:27 EDT) Maryan Moody MD CARDIAC SERVICES ORD ERABLES MERGE CARDIO * HOLTER MONITOR-48: PLACED IN CLINIC (06/02/2024 14:43 EDT) Anatomical Region Laterality Modality Holter Narrative 06/08/2024 21:17 EDT ?Frequent sinus bradycardia, two symptomatic episodes. Monitoring started at 2:45 PM and continued for 47 hr 59 min. Findings: Baseline Sinus Rhythm: The average heart rate was 50 BPM. The minimum heart rate was 33 BPM, occurring at 12:40:28 PM D1. The maximum heart rate was 114 BPM, occurring at 5:40:19 PM D1. Rare PVC: Ventricular ectopic activity consisted of 3 beats, of which, 3 were in single PVCs. Rare PAC: Supraventricular ectopic activity consisted of 28 beats, of which, 2 were in atrial couplets, 1 was late beat, 25 were single PACs. No significant pauses >3s. There were 151 dropped beats, mostly related to sinus bradycardia/sinus arrhythmia. The longest R-R interval was 2.3 seconds occurring at 1:57:47 PM D2. The longest N-N interval was 2.3 seconds occurring at 1:57:47 PM D2. Symptoms: DIZZINESS with sinus and ectopic atrial bradycardia, 39/min; Stars in vision with sinus bradycardia, 48/min. Maryan Moody MD CARDIAC SERVICES ORD ERABLES * TRANSTHORACIC ECHO (TTE) COMPLETE W/DOPPLER W/CF NO CONTRAST (06/02/2024 14:35 EDT) Mitral deceleration time 292 ms MERGE CARDIO AV DOI 0.68 MERGE CARDIO LV Diastolic Volume 113 mL MERGE CARDIO LV Systolic Volume 39 mL MERGE CARDIO Mitral A-wave peak velocity 0.9 m/s MERGE CARDIO Mitral E-wave peak velocity 1.0 m/s MERGE CARDIO Mitral peak gradient, D 4 mmHg MERGE CARDIO Aortic peak gradient, S 20 mmHg MERGE CARDIO Stroke volume (SV), LVOT DP 99 ml MERGE CARDIO Aortic valve VTI, S 63.9 cm MERGE CARDIO Aortic valve peak velocity, S 2.2 m/s MERGE CARDIO LVOT VTI, S 34.9 cm MERGE CARDIO LVOT peak velocity, S 1.5 m/s MERGE CARDIO LVOT area 2.8 cm2 MERGE CARDIO LVOT ID, S 1.9 cm MERGE CARDIO AV LVOT peak gradient 9 mmHg MERGE CARDIO Velocity ratio, mean, LVOT/AV 0.89 MERGE CARDIO Aortic mean gradient, S 7 mmHg MERGE CARDIO Aortic valve area, peak velocity 1.9 cm2 MERGE CARDIO Aortic valve area VTI 1.6 cm2 MERGE CARDIO LVOT mean gradient, S 4 mmHg MERGE CARDIO LV ejection fraction, 1-p A4C 61 % MERGE CARDIO LV ejection fraction, 1-p A2C 71 % MERGE CARDIO Aortic valve mean velocity, S 1.1 m/s MERGE CARDIO Aortic valve area 2.5 cm2 MERGE CARDIO Aortic root ID 2.7 cm MERGE CARDIO Ascending aorta ID, a-p 2.6 cm MERGE CARDIO EF 67 % MERGE CARDIO LV ID, ES, PLAX 3.1 2.1 - 4.0 cm MERGE CARDIO LV PW thickness, ED, PLAX 0.8 0.6 - 1.1 cm MERGE CARDIO LV ID, ED, PLAX 4.9 3.5 - 6.0 cm MERGE CARDIO LV E/e', lateral 17.0 MERGE CARDIO LA volume, ES, BP 61.0 ml MERGE CARDIO LA Atrial Length A2C 5.4 cm MERGE CARDIO Pulmonic valve mean velocity, S 1 cm/s MERGE CARDIO LV end-diastolic volume, 1-p A4C 65 ml MERGE CARDIO LV end diastolic volume 1-p A2C 95 ml MERGE CARDIO Stroke index (SV/bsa) LVOT DP 58.0 ml/m2 MERGE CARDIO LV E/e', lateral 6.0 MERGE CARDIO LV e', lateral 17.00 cm/s MERGE CARDIO LV e', medial 9.10 cm/s MERGE CARDIO LVOT mean velocity, S 1.0 m/s MERGE CARDIO IVS thickness, ED, PLAX 0.8 cm MERGE CARDIO LV E/e', medial 10.8 MERGE CARDIO LV E/e', average 8 MERGE CARDIO Mitral E/A ratio, peak 1.10 MERGE CARDIO EF - 3D Echo 58 % MERGE CARDIO GLS -23.0 % MERGE CARDIO Anatomical Region Laterality Modality Ultrasound Narrative 06/04/2024 16:52 EDT ?Left??Ventricle: Left ventricular systolic function was normal with an ejection fraction of 60-65%. The left ventricular estimated ejection fraction by biplane Mullen's method was 67%. The left ventricular estimated ejection fraction by 3-dimensional volume rendering was 58%. Left ventricular wall thickness was normal. ?Right??Ventricle: The right ventricular cavity was normal in size. Right ventricular systolic function was normal. ?Aortic??Valve: The aortic valve was not well visualized. The aortic valve structure was probably trileaflet. The aortic leaflets were mildly thickened. There was no aortic valve stenosis. There was mild to moderate aortic valve regurgitation. AV Peak Velocity: 2.2 m/s. AV Mean Gradient: 7 mmHg. AV Area VTI: 1.6 cm2. Left Ventricle The left ventricular cavity was normal in size. Left ventricular systolic function was normal with an ejection fraction of 60-65%. The left ventricular estimated ejection fraction by biplane Mullen's method was 67%. The left ventricular estimated ejection fraction by 3-dimensional volume rendering was 58%. Left ventricular diastolic parameters were normal. Left ventricular wall thickness was normal. Left ventricular wall motion was normal; there were no regional wall motion abnormalities. Global longitudinal strain was normal. Global longitudinal strain was --23.0%. Right Ventricle The right ventricular cavity was normal in size. Right ventricular systolic function was normal. Right ventricular wall thickness was normal. Left Atrium Left atrial cavity was mildly dilated. Left atrial volume index was mildly increased. Right Atrium The right atrium was normal in size. IVC/SVC The inferior vena cava was not well visualized. Mitral Valve Mitral valve structure was normal. There was trace mitral regurgitation. There was no significant mitral valve stenosis. Tricuspid Valve The tricuspid valve was not well visualized. There was trace tricuspid valve regurgitation. There was no tricuspid valve stenosis. Aortic Valve The aortic valve was not well visualized. The aortic valve structure was probably trileaflet. The aortic leaflets were mildly thickened. There was no aortic valve stenosis. There was mild to moderate aortic valve regurgitation. AV Peak Velocity: 2.2 m/s. AV Mean Gradient: 7 mmHg. AV Area VTI: 1.6 cm2. Pulmonic Valve The pulmonic valve was not well visualized. There was no significant pulmonic valve regurgitation. There was no pulmonic valve stenosis. Ascending Aorta The aortic root was normal in size. The ascending aorta was normal in size. Pericardium There was no pericardial effusion. Pulmonic Artery Unable to assess PA pressure. Study Details Study status: Routine. Transthoracic echocardiography. M-Mode, complete 2D, complete spectral Doppler, and color Doppler.Scanning was performed from the apical, parasternal, subcostal and suprasternal acoustic windows. Overall the study quality was suboptimal. The study was difficult due to patient body habitus. Images were obtained using cardiac ultrasound machine Vox [id number]-01. Maryan Moody MD CARDIAC ECHO ORDERAB LES * SURGICAL PATHOLOGY (06/01/2024 15:00 EDT) Note to Patient The following pathology results have been interpreted by your pathologist and may be available to you before your health provider has had the opportunity to review them. Please allow time for your provider to receive these results and explore management options, if applicable. 06/05/2024 11:23 [facility] Final Diagnosis A. SKIN OF SHOULDER, RIGHT, SHAVE BIOPSY: - Basal cell carcinoma, superficial and nodular type (pigmented). - Basal cell carcinoma does not extend to edges of shave biopsy specimen in the plane of the sections examined. - Basal cell carcinoma present approximately 0.5 mm from peripheral tissue edge. 06/05/2024 11:23 [facility] Attestation By the signature below, the attending physician certifies that they have 1) personally conducted a gross and/or microscopic examination of the described specimen(s), and/or personally interpreted the results of laboratory testing of the described specimen(s), and 2) personally rendered or confirmed the above diagnosis. 06/05/2024 11:23 [facility] at 1123 Microscopic Description There are buds of atypical basal cells emanating from the epidermis and forming islands within the dermis. The basal cells have dark nuclei and scant cytoplasm. The nuclei at the periphery of the buds and islands are arranged in a palisaded fashion. Some the islands and buds are associated with melanin pigment within individual melanocytes and melanophages. The islands are from the adjacent fibromyxoid stroma by clefts. 06/05/2024 11:23 EDT [facility] Clinical History Dysplastic nevus; clinical diagnosis code: D48.5, Z86.03 06/05/2024 11:23 EDT [facility] Gross Description A. Received in formalin labelled with proper patient identification (initials R, A) and R shoulder are 2 carrillo irregular skin shaves measuring 0.6 x 0.2 cm and 0.8 x 0.5 cm. The epidermis of the larger skin shave displays a 0.5 x 0.5 cm central carrillo-brown papule. The larger skin is inked blue and bisected. The smaller skin is inked orange. Entirely submitted in A1. OSVALDO MCRAE(ASCP) 06/03/2024 9:05 06/05/2024 11:23 EDT [facility] Performing Lab [facility] 06/05/2024 11:23 EDT [facility] Scanned Images 06/05/2024 11:23 T [facility] Tissue SPECIMEN FROM SKIN / Unknown 06/01/2024 15:00 EDT 06/02/2024 18:17 EDT Maryan Moody MD PATHOLOGY ORDERABLES [facility] [address] [place] [id number] * HEPATITIS C AB W REFLEX TO HCV RNA BY PCR (12/09/2023 16:00 EST) Hep C Antibody Negative Negative 12/10/2023 18:57 EST [facility] Blood VENOUS BLOOD / Unknown 12/09/2023 16:00 EST 12/10/2023 17:08 EST Provider Outr Resulting Lab CHEMISTRY & BLOOD GAS ORDERABLES [facility] [address] [place] [address] * PAP TEST (01/10/2022 11:45 EST) Specimens A. Cervix and/or Endocervix , ThinPrep Imaging System with Manual Evaluation 01/23/2022 15:10 [facility] Specimen Adequacy Satisfactory for Evaluation - transformation zone component present 01/23/2022 15:10 [facility] General Categorization Negative for intraepithelial lesion or malignancy 01/23/2022 15:10 [facility] Attestation . 01/23/2022 15:10 [facility] at 1510 Clinical History SEE BELOW 01/23/20 15:10 [facility] HPV The result for the Human Papillomavirus (HPV) Detection-High Risk Types is Negative. No E6 or E7 mRNA is detected from HPV types 16,18,31,33,35,39 ,45,51,52,56,58,5 9,66, and 68 by assistant community manager mediated amplification.Mini ting was performed on specimen [id number] and was resulted on 01/23/2022 1451 EST by THEODORE, LAB INSTRUMENT RESULTS IN 01/23/2022 15:10 [facility] Performing Lab [facility] 01/23/2022 15:10 [facility] Scanned Images 01/23/2022 15:10 [facility] Papanicolaou smear specimen (specimen) CERVIX UTERI STRUCTURE / Unknown 01/10/2022 11:45 EST 01/12/2022 13:13 EST Kierra uCnningham TRUST ADMINISTRATOR PATHOLOGY ORDERA BLES [facility] [address] [place] [address] from Last 3 Months or Most Recently Relevant to Health Maintenance Advance Directives For more information, please contact: [phone] * Full Code (Latest Code Status on File) Date Activated Date Inactivated Comments 01/03/2024 9:13 01/03/2024 17:36 Question Answer Comments When the patient has NO PULSE: Full Code / CPR Who Made the Decision? Default/Not Discussed Care Teams Incident Coordinator Relationship Specialty Start Date End Date Maryan Moody MD [address] [place] [id number] PCP - General 09/13/23
--- OUTSIDE RECORDS SUMMARY | 2024-08-10 18:33 | XMS_ITS ---
Author Organization Unknown Address [address] [place] [address] [phone] Phone Care Team Providers Care Administrative Appeals Tribunal Member Name Role Phone NICOLE BRADSHAW Registered Nurse Unavailable SELVIN GUZMAN Registered Nurse Unavailable SHAHIDA CORTEZ Attending Unavailable YURY Frausto Primary Unavailable UNLISTED PROVIDER - REQUESTED Xhandoff Un available Results URINALYSIS WITH REFLEX CULT IF POSITIVE* - Collect Date/Time: 04/29/2024 11:10 [facility] ID: [id number] [address] [place], [place], [address] LOINC: 32107-9 Test Value Unit Reference Range Code Code System Flag COLLECTION MODE: CLEAN CATCH 51475-0 LOINC Color YELLOW yellow 5778-6 LOINC Appearance CLEAR clear 5767-9 LOINC Glucose urine NEGATIVE negative mg/dl 54440-6 LOINC Bilirubin SMALL negative 5770-3 LOINC A Ketones 15 negative mg/dl 2514-8 LOINC A Spec gravity 1.020 1.003 - 1.030 5811-5 LOINC pH urine 6.0 5.0 - 7.0 2756-5 LOINC Protein 30 negative mg/dl 77522-8 LOINC A Urobilinogen 1.0 <or= 1 EU/dl 78756-8 LOINC A Nitrite. NEGATIVE negative 5802-4 LOINC Blood NEGATIVE negative 5794-3 LOINC Leukocytes. NEGATIVE negative MICROSCOPIC INDICATED WBCs. 0-5 0-5 / hpf 98069-2 LOINC RBCs 0-5 0-5 / hpf 69396-1 LOINC Epith cells 10-25 0-5 / hpf 67199-9 LOINC Cell types squamous Crystals none none Bacteria moderate none Mucus present none 8247-9 LOINC Casts none none /lpf 07983-3 LOINC Other 66579-2 LOINC TEST QUAL (URINE) - Collect Date/Time: 04/29/2024 11:10 [facility] ID: [id number] [address] [place], [place], [address] LOINC: 3 Test Value Unit Reference Range Code Code System Flag TEST NEGATIVE 2106-01 LOINC CBC W/ DIFFERENTIAL* - Colle ct Date/Time: 04/29/2024 10:10 [facility] ID: [id number] [address] [place], [place], [address] LOINC: 51781-2 Test Value Unit Reference Range Code Code System Flag WBC 12.91 th/cmm L=5.00 H=10.00 6690-2 LOINC H NEUT % 72.0 % L=40.0 H=80.0 LYMPH % 21.4 % L=10.0 H=50.0 MONO % 4.7 % L=2.0 H=12.0 58851-8 LOINC EOS % 0.9 % L=0.0 H=8.0 BASO % 0.5 % L=0.0 H=3.0 IG % 0.5 % L=0.0 H=1.1 2514-8 LOINC NRBC % 0.0 % L=0.0 H=0.0 67985-7 LOINC NEUT abs count 9.3 th/cmm L=1.6 H=8.4 751-8 LOINC H LYMPH abs count 2.8 th/cmm L=1.5 H=4.0 731-0 LOINC MONO abs count 0.6 th/cmm L=0.2 H=1.0 742-7 LOINC EOS abs count 0.1 th/cmm L=0.0 H=0.5 711-2 LOINC BASO abs count 0.1 th/cmm L=0.0 H=0.2 704-7 LOINC IG abs count 0.1 th/cmm L=0.0 H=0.1 91253-9 LOINC NRBC abs count 0.0 mil/cmm L=0.0 H=0.0 48068-5 LOINC RBC 5.95 mil/cmm L=3.90 H=5.40 789-8 [...] SERUM - Collect D ate/Time: 04/29/2024 10:10 [facility] ID: [id number] [address] [place] [address], [id number] LOINC: 2777-1 Test Value Unit Reference Range Code Code System Flag PHOSPHORUS SERUM 2.8 mg/dL L=2.2 H=4.2 LIPASE* NEW - Collect Date/T viridiana: 04/29/2024 10:10 [facility] ID: [id number] [address] [place] [address], [id number] LOINC: 3040-3 Test Value Unit Reference Range Code Code System Flag LIPASE. 19 U/L L=16 H=77 COMPREHENSIVE METABOLIC PANE L (CMP) - Collect Date/Time: 04/29/2024 10:10 [facility] ID: [id number] [address] [place] [address], [address] LOINC: 25166-7 Test Value Unit Reference Range Code Code [...] H=34 2028-9 LOINC ANION GAP 13.0 mmol/L 53579-9 LOINC CALCIUM SERUM 10.2 mg/dL L=8.2 H=10.2 70256-8 LOINC BILIRUBIN TOTAL 0.7 mg/dL L=0.0 H=1.3 1975-2 LOINC ALK. PHOS. 101 U/L L=46 H=116 6768-6 LOINC SGOT (AST) 9 U/L L=15 H=37 1920-8 LOINC L SGPT (ALT) 15 U/L L=12 H=78 1742-6 LOINC TOTAL PROTEIN 8.7 gm/dL L=6.0 H=8.0 2885-2 LOINC H ALBUMIN 4.3 gm/dL L=3.4 H=5.0 1751-7 LOINC AGE 43 years eGFR (non-Afr.Amer.) 73 mL/min 15097-0 LOINC eGFR (Afr-Singaporean) 88 mL/min 93639-9 LOINC MAGNESIUM SERUM* - Collect D ate/Time: 04/29/2024 10:10 [facility] ID: [id number] [address] [place], [place], [address] LOINC: Test Value Unit Reference Range Code Code System Flag MAGNESIUM 1.6 mg/dL L=1.8 H=2.4 04146-7 LOINC L US ABD LIMITED ONE ORGAN - C ompleted: 04/29/2024 11:48 LOINC: [facility] RADIOLOG[facility] [place], [place] [address] INFINITT PACS OPEN END SPINNING OPERATOR REPORT Patient Name: LALO SAEED MRN: Sex: : Age: [id number] O 1980 43 Account: Accession: Admit: StayType: [id number] 04/29/2024 E Ordered: Order ID: Submitted: Ordering Provider: 04/29/2024 11:14 [id number] DANA MCCLOUD Completed: Technologist: Resulted: 04/29/2024 11:29 [facility] 04/29/2024 12:02 FINAL REPORT EXAM: US ABD [...] Smoking History Current every day smoker [id number] Sex Female Vital Signs Vital Sign Value Unit Stanley Value Stanley Unit Date/Time Recent/Initial? Code Code System Body Mass Index 26.64 kg/m2 04/29/2024 09:40 Initial 90350 -5 LOINC Systolic Blood Pressure 134 mm[Hg] [...] 61.00 in 04/29/2024 09:40 Initial 8302- 2 LOINC O2 Saturation 99 % 2023 13:24 Most Recent 12172 -5 LOINC O2 Saturation 100 % 2023 09:40 Initial 46847 -5 LOINC Pulse 51.0 /min 04/29/2024 13:24 Most Recent 8867- 4 LOINC Pulse 60.0 /min 04/29/2024 09:40 Initial 8867- 4 LOINC Respiration 18 /min 04/29/20 24 13:24 Most Recent 9279- 1 LOINC Respiration 20 /min 04/29/20 24 09:40 Initial 9279- 1 LOINC Temperature 36.2 Adia 97.2 F 04/29/20 09:40 Initial 8310- 5 LOINC Weight 63.96 kg 141.00 lbs 04/29/2024 09:40 Initial 96806 -7 LOINC Medications Medication Start Date End Date Route Frequency Dose Code Code System Medication Instructions Home Meds Carafate 1GM Oral Tablet 04/29/2024 Unknown ORAL NEEDED THREE TIMES A DAY 1 TABLET 20800808 RxNorm TAKE 1 TABLET ORAL NEEDED THREE TIMES A DAY FOR Pain Ondansetron 4MG Oral Tablet, Disintegrating 04/29/2024 Unknown ORAL NEEDED EVERY 6 HOURS 425276 RxNorm TAKE 1-2 TABLET ORAL NEEDED EVERY [...] ANKYLOSIS OF LOWER LEG JOINT active 2 98336017 SNOMED-CT HTN active 47272068 SNOMED-CT Allergies and Adverse Reactions Allergy Substance Reaction Severity Start Date Concern Status Co de Code System VIOXX Rash (SNOMED-CT: 551339299) Active PCN (PENICILLIN) Active Plan of Treatment Symptoms 02/24/2021 Personal Care Team Section Performer Name Performer Role Active Date Inactive Da te
--- OUTSIDE RECORDS SUMMARY | 2024-08-10 18:33 | XMS_ITS | Encounter Summary ---
Author Organization [facility] Address [address] [place] [address] Care Team Providers Care Cartoon Artist Name Role Phone Maryan Moody MD Primary Care Provider Reason for Referral * Cardiology (Routine/Next Available) - Authorization Not Required Specialty Diagnoses / Procedures Referred By [facility] Referred To Contact Diagnoses Nonrheumatic aortic (valve) insufficiency Procedures HOLTER MONITOR - 48 Maryan Moody MD [address] [place] [address] [facility] Referral ID Status Reason Start Date Expiration Date Visits Requested Visits Authorized [id number] Authorization Not Required 05/27/2024 1 1 Encounter Details Date Type Department Care Team (Latest Contact Info) Description 05/27/2024 Transcribe Orders [facility] Admitting [address] [place] [address] Maryan Moody MD [address] [place] [address] Nonrheumatic aortic (valve) insufficiency (Primary Dx) Social History Tobacco Use Types Packs/Day Years [...] Yes 03/20/2019 documented as of this encounter Plan of Treatment Upcoming Encounters Date Type Department Care Team (Late st Contact Info) Description 09/07/2024 15:45 EDT Office Visit [facility] Cardiology Clinic [address] [place] [address] [phone] Alvino Schmid MD [address] [place] [address]- [address] [place] [address] documented as of this encounter Results * HOLTER MONITOR-48: PLACED IN CLINIC (06/02/2024 [...] 48/min. Maryan Moody MD CARDIAC SERVICES ORD [facility] documented in this encounter Visit Diagnoses Diagnosis Nonrheumatic aortic (valve) insufficiency- Primary Nonrheumatic aortic (valve) insufficiency documented in this encounter Care Teams Cartoon Artist Relationship Specialty Start Date End Date Maryan Moody MD [address] [place] [address] PCP - General 09/13/23 documented as of this encounter
--- OUTSIDE RECORDS SUMMARY | 2024-08-10 18:33 | XMS_ITS | Encounter Summary ---
Author Organization [facility] Address [address] [place] [address] Care Team Providers Care Channel Marketing Specialist Name Role Phone Amy Emily AKBAR Primary Care Provider Maryan Moody MD Primary Care Provider [phone] Encounter Details Date Type Department Care Team (Late st Contact Info) Description 11/16/2021 Lab Requisition [facility] Pathology & Laboratory Medicine - [facility] [address] [place] [address] Outr Resulting Lab, Provider Social History Tobacco Use Types Packs/Day Years [...] Yes 03/20/2019 Cognitive Status Response Date of Assess ent Because of a physical, menta l, or emotional condition, does this person have serious difficulty concentrating, remembering, or making decisions? Yes 03/20/2019 documented as of this encounter Plan of Treatment Upcoming Encounters Date Type Department Care Team (Late st Contact Info) Description 09/07/2024 15:45 EDT Office Visit [facility] Cardiology Clinic [address] [place] [address] Alvino Schmid MD [address] [facility] [address] [place] [address] documented as of this encounter Procedures Procedure Name Priority Date/Time Associated Diagnosis Comments CHLAMYDIA/N. GONORRHOEAE AMPLIFIED NUCLEIC ACID Routine 11/16/2021 10:15 EST documented in this encounter Results * CHLAMYDIA/N. GONORRHOEAE AMPLIFIED RNA (11/16/2021 10:15 EST) Neisseria gonorrhoeae Result Negative Negative 11/17/2021 14:39 EST [facility] Chlamydia trachomatis Result Negative Negative 11/17/2021 14:39 EST [facility] Swab ENTIRE VAGINA / Unknown 11/16/2021 10:15 EST 11/16/2021 23:00 EST Provider Outr Resulting Lab MICROBIOLOGY - GENERAL ORDERABLES [facility] [address] [place] [address] documented in this encounter Visit Diagnoses Not on filedocumented in this encounter Care Teams Channel Marketing Specialist Relationship Specialty Start Date End Date Emily Reyes FNP PCP - General 02/10/21 09/12/23 Maryan Moody MD [address] [place] [address] PCP - General 09/13/23 documented as of this encounter
--- OUTSIDE RECORDS SUMMARY | 2024-08-10 18:33 | XMS_ITS | Referral Summary ---
Author Organization [facility] Address [address] [place] [address] Care Team Providers Care Typewriters Functional Tester Name Role Phone Maryan Moody MD Primary Care Provider [phone] Encounters Date Type Department Care Team Description 06/09/2024 Specialty Pharmacy [facility] [address] [place], [place] [phone] Melissa Wright RPH Set up initial fill for Addiction Medicine, Patient Education for Addiction Medicine, Prospective Review for Addiction Medicine, Started Clinical Follow-up (2x annually) for Addiction Medicine 06/05/2024 10:27 EDT - 06/05/2024 23:59 EDT Hospital Encounter [facility] Non-Invasive Cardiology [address] [place] [address] Nonrheumatic aortic (valve) insufficiency Discharge Disposition: Home or Self Care 06/02/2024 14:05 EDT - 06/02/2024 23:59 EDT Hospital Encounter [facility] Non-Invasive Cardiology [address] [place] [address] Nonrheumatic aortic (valve) insufficiency Discharge Disposition: Home or Self Care 06/02/2024 13:59 EDT - 06/02/2024 14:04 EDT Hospital Encounter [facility] Non-Invasive Cardiology [address] [place] [address] Nonrheumatic aortic (valve) insufficiency Discharge Disposition: Home or Self Care 06/02/2024 Lab Requisition [facility] Pathology & Laboratory Medicine - [facility] [address] [facility] [place] [address] Maryan Moody MD Personal history of neoplasm of uncertain behavior; Neoplasm of uncertain behavior of skin 05/27/2024 Transcribe Orders [facility] Admitting [address] [place] [address] Maryan Moody MD Nonrheumatic aortic (valve) insufficiency (Primary Dx) from Last 3 Months Allergies Active Allergy Reactions Criticality Noted Date [...] LAURA - NAME IN PAYER MEMBRENO LISTED LALO GODOY, PATIENT'S LEGAL NAME IS LAURA IT APPEARS ON OFFICIAL GREETER LICENSE REFERRED BY Kierra Cunningham APRN MFM CONSULT ONLY Problem Noted Date Diagnosed Date Abnormal uterine bleeding (AUB) 09/24/2023 Obesity (BMI 30-39.9) 09/24/2023 Sterilization 09/24/2023 Opioid use disorder 03/15/2022 Overview: In rx since 2006 No injection Only other substance THC Has not had counselor in a year-at [facility] Prescribed [facility] Last return to use 6-7 yrs [...] Has not had counselor in a year-at [facility] Prescribed [facility] Last return to use 6-7 yrs [...] question then q2 wks from 16 wks Social History Tobacco Use Types Packs/Day Years [...] 12:56 EDT Sexual Orientation Not on file Last Filed Vital Signs Vital Sign Reading [...] Body Mass Index 29.49 01/03/2024 0929 EST Functional Status Functional Status Response Date of [...] concentrating, remembering, or making decisions? Yes 03/20/2019 Plan of Treatment Upcoming Encounters Date Type Department Care Team (Late st Contact Info) Description 09/07/2024 15:45 EDT Office Visit [facility] Cardiology Clinic [address] [place] [address] [phone] Alvino Schmid MD [address] [place] [address]-[address] [place] [phone] Procedures Procedure Name Priority Date/Time Associated Diagnosis [...] W/DOPPLER W/CF NO CONTRAST (06/02/2024 14:35 EDT) Pathologist [facility] Mitral deceleration time 292 ms MERGE CARDIO [...] Images were obtained using cardiac ultrasound machine EPIQ-01. Maryan Moody MD CARDIAC ECHO ORDERAB LES * SURGICAL PATHOLOGY (06/01/2024 15:00 EDT) Note to Patient The following pathology results have been interpreted by your pathologist and may be available to you before your health provider has had the opportunity to review them. Please allow time for your provider to receive these results and explore management options, if applicable. 06/05/2024 11:23 [facility] Final Diagnosis A. SKIN OF SHOULDER, RIGHT, SHAVE BIOPSY: - Basal cell carcinoma, superficial and nodular type (pigmented). - Basal cell carcinoma does not extend to edges of shave biopsy specimen in the plane of the sections examined. - Basal cell carcinoma present approximately 0.5 mm from peripheral tissue edge. 06/05/2024 11:23 [facility] Attestation By the signature below, the attending physician certifies that they have 1) personally conducted a gross and/or microscopic examination of the described specimen(s), and/or personally interpreted the results of laboratory testing of the described specimen(s), and 2) personally rendered or confirmed the above diagnosis. 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 06/05/2024 11:23 [facility] Clinical History Dysplastic nevus; clinical diagnosis code: D48.5, Z86.03 06/05/2024 11:23 [facility] Gross Description A. Received in [...] A1. OSVALDO MCRAE(ASCP) 06/03/2024 9:05 06/05/2024 11:23 [facility] Performing Lab [facility] 06/05/2024 11:23 [facility] Scanned Images 06/05/2024 11:23 [facility] Tissue SPECIMEN FROM SKIN / Unknown 06/01/2024 15:00 EDT 06/02/2024 18:17 EDT Maryan Moody MD PATHOLOGY ORDERABLES [facility] [address] [place] [phone] * HEPATITIS C AB W REFLEX TO HCV RNA BY PCR (12/09/2023 16:00 EST) Hep C Antibody Negative Negative 12/10/2023 18:57 [facility] Blood VENOUS BLOOD / Unknown 12/09/2023 16:00 EST 12/10/2023 17:08 EST Provider Outr Resulting Lab CHEMISTRY & BLOOD GAS ORDERABLES [facility] [address] [place] [address] * PAP TEST (01/10/2022 11:45 EST) Specimens A. Cervix and/or Endocervix , ThinPrep Imaging System with Manual Evaluation 01/23/2022 15:10 [facility] Specimen Adequacy Satisfactory for Evaluation - transformation zone component present 01/23/2022 15:10 [facility] General Categorization Negative for intraepithelial lesion or malignancy 01/23/2022 15:10 [facility] Attestation . 01/23/2022 15:10 [facility] at 1510 Clinical History SEE BELOW 01/23/20 15:10 [facility] HPV The result for the Human Papillomavirus (HPV) Detection-High Risk Types is Negative. No E6 or E7 mRNA is detected from HPV types 16,18,31,33,35,39 ,45,51,52,56,58,5 9,66, and 68 by national van owner operator mediated amplification.Mini ting was performed on specimen [id number] and was resulted on 01/23/2022 1451 EST by THEOD[facility], LAB INSTRUMENT RESULTS IN 01/23/2022 15:10 [facility] Performing Lab [facility] 01/23/2022 15:10 [facility] Scanned Images 01/23/2022 15:10 [facility] Papanicolaou smear specimen (specimen) CERVIX UTERI STRUCTURE / Unknown 01/10/2022 11:45 EST 01/12/2022 13:13 EST Kierra Mcghee Marisa BIOCHEMISTRY SPECIALIST PATHOLOGY ORDERA BLES [facility] [address] [place] [address] from Last 3 Months or Most Recently Relevant to Health Maintenance Advance Directives For more information, please contact: [phone] * Full Code (Latest Code Status on File) Date Activated Date Inactivated Comments 01/03/2024 9:13 01/03/2024 17:36 Question Answer Comments When the patient has NO PULSE: Full Code / CPR Who Made the Decision? Default/Not Discussed Care Teams Typewriters Functional Tester Relationship Specialty Start Date End Date Maryan Moody MD [address] [place] [phone] PCP - General 09/13/23
--- OUTSIDE RECORDS SUMMARY | 2024-08-10 18:33 | XMS_ITS | Encounter Summary ---
Author Organization [facility] Address [address] [place] [address] Care Team Providers Care Elementary [employer] Librarian Name Role Phone Emily Reyes Primary Care Provider Maryan Moody MD Primary Care Provider [phone] Encounter Details Date Type Department Care Team (Late st Contact Info) Description 08/04/2021 Lab Requisition [facility] Pathology & Laboratory Medicine - [facility] [address] [place] [address] Outr Resulting Lab, Provider Social History Tobacco [...] Info) Description 09/07/2024 15:45 EDT Office Visit [facility] Cardiology Clinic [address] [place] [address] Alvino Schmid MD [address] [facility] [address] [place] [address] documented as of this encounter Procedures Procedure Name Priority Date/Time Associated Diagnosis Comments SYPHILIS SEROLOGY Routine 08/03/2021 14: 30 EDT HEPATITIS C AB W REFLEX TO HCV RNA BY PCR Routine 08/03/2021 14:30 EDT documented in this encounter Results * SYPHILIS SEROLOGY (08/03/2021 14:30 EDT) Syphilis Serology Negative Negative 08/08/2021 10:41 EDT [facility] Blood VENOUS BLOOD / Unknown 08/03/2021 14:30 EDT 08/04/2021 16:30 EDT Provider Outr Resulting Lab IMMUNOLOGY A ND SEROLOGY ORDERABLES [facility] [address] [place] [address] * HEPATITIS C AB W REFLEX TO HCV RNA BY PCR (08/03/2021 14:30 EDT) Hep C Antibody Negative Negative 08/07/2021 9:09 EDT [facility] Blood VENOUS BLOOD / Unknown 08/03/2021 14:30 EDT 08/04/2021 16:30 EDT Provider Outr Resulting Lab CHEMISTRY & BLOOD GAS ORDERABLES [facility] [address] [place] [address] documented in this encounter Visit Diagnoses Not on filedocumented in this encounter Care Teams [employer] Librarian Relationship Specialty Start Date End Date Emily Reyes FNP PCP - General 02/10/21 09/12/23 Maryan Moody MD [address] [place] [phone] PCP - General 09/13/23 documented as of this encounter
--- OUTSIDE RECORDS SUMMARY | 2024-08-10 18:33 | XMS_ITS | Encounter Summary ---
Author Organization [facility] Address [address] [place] [address] Care Team Providers Care Coffee Urn Attendant Name Role Phone Maryan Moody MD Primary Care Provider [phone] Reason for Referral * Cardiology (Routine/Next Available) - Authorization Not Required Specialty Diagnoses / Procedures Referred By Contac t Referred To Contact Diagnoses Nonrheumatic aortic (valve) insufficiency Procedures HOLTER MONITOR SCAN - 48 Maryan Moody MD [address] [place] [address] Referral ID Status Reason Start Date Expiration Date Visits Requested Visits Authorized [id number] Authorization Not Required 06/05/2024 1 1 Reason for Visit * Cardiology (Routine/Next Available) - Authorization Not Required Specialty Diagnoses / Procedures Referred By Contac t Referred To Contact Diagnoses Nonrheumatic aortic (valve) insufficiency Procedures HOLTER MONITOR SCAN - 48 Maryan Moody MD [address] [place] [address] Referral ID Status Reason Start Date Expiration Date Visits Requested Visits Authorized [id number] Authorization Not Required 06/05/2024 1 1 Encounter Details Date Type Department Care Team (Latest Contact Info) Description 06/05/2024 10:27 EDT - 06/05/2024 23:59 EDT Hospital Encounter [facility] - CV Non-Invasive Cardiology [address] [place] [address] Nonrheumatic aortic (valve) insufficiency Discharge Disposition: Home or Self Care Social History Tobacco Use Types Packs/Day Years [...] Yes 03/20/2019 documented as of this encounter Medications at Time of Discharge Medication Sig Dispensed Refills Start Date End Date gabapentin (NEURONTIN) 300 mg capsule Take 1 Capsule by mouth 2 times daily. levothyroxine (SYNTHROID) 88 mcg tablet Take 1 Tablet by mouth daily. 03/20/2024 meloxicam (MOBIC) 15 mg tablet TAKE 1 TABLET BY MOUTH EVERY DAY. DO NOT TAKE OTHER NSAIDS WITH THIS MED 10/21/2023 olmesartan (BENICAR) 40 mg tablet Take 1 Tablet by mouth daily. 09/04/2023 omeprazole (PRILOSEC) 20 mg capsule Take 1 Capsule by mouth daily. 04/28/2024 ondansetron (ZOFRAN-ODT) 4 mg disintegrating tablet Take 1 Tablet by mouth every 8 hours as needed. 04/29/2024 ZOLMitriptan (ZOMIG-ZMT) 5 mg disintegrating tablet Take 1 Tablet by mouth as needed. 06/01/2024 buprenorphine HCl/naloxone HCl (SUBOXONE SL) Place 10 mg under the tongue daily. 06/11/2024 levothyroxine (SYNTHROID) 50 mcg tablet Take 88 mcg by mouth daily. 0 01/28/2019 06/11/2024 documented as of this encounter Discharge Disposition Disposition Code Departure Means Destination Home or Self Care documented in this encounter Plan of Treatment Upcoming Encounters Date Type Department Care Team (Late st Contact Info) Description 09/07/2024 15:45 EDT Office Visit [facility] Cardiology Clinic [address] [place] [address] Alvino Schmid MD [address] [facility] [address] [place] [address] documented as of this encounter Procedures Procedure Name Priority Date/Time Associated Diagnosis Comments HOLTER MONITOR SCAN - 48 Routine 06/05/2024 10:27 EDT Nonrheumatic aortic (valve) insufficiency documented in this encounter Results * HOLTER MONITOR SCAN - 48 (06/05/2024 10:27 EDT) Maryan Moody MD CARDIAC SERVICES ORD ERABLES [facility] CARDIO documented in this encounter Visit Diagnoses Diagnosis Nonrheumatic aortic (valve) insufficiency documented in this encounter Care Teams Coffee Urn Attendant Relationship Specialty Start Date End Date Maryan Moody MD [address] [place] [address] PCP - General 09/13/23 documented as of this encounter
--- OUTSIDE RECORDS SUMMARY | 2024-08-10 18:33 | XMS_ITS | Encounter Summary ---
Author Organization [facility] Address [address] [place] [address] Care Team Providers Care Digital Media Intern Name Role Phone Emily Reyes Primary Care Provider Maryan Moody MD Primary Care Provider [phone] Encounter Details Date Type Department Care Team (Late st Contact Info) Description 08/04/2021 Lab Requisition [facility] Pathology & Laboratory Medicine - [facility] [address] [place] [address] Outr Resulting Lab, Provider Social History Tobacco [...] Info) Description 09/07/2024 15:45 EDT Office Visit [facility] Cardiology Clinic [address] [place] [address] Alvino Schmid MD [address] [facility] [address] [place] [address] documented as of this encounter Procedures Procedure Name Priority Date/Time Associated Diagnosis Comments CHLAMYDIA/N. GONORRHOEAE AMPLIFIED NUCLEIC ACID Routine 08/03/2021 14:30 EDT documented in this encounter Results * CHLAMYDIA/N. GONORRHOEAE AMPLIFIED RNA (08/03/2021 14:30 EDT) Neisseria gonorrhoeae Result Negative Negative 08/07/2021 14:35 EDT [facility] Chlamydia trachomatis Result Negative Negative 08/07/2021 14:35 EDT [facility] Swab ENTIRE VAGINA / Unknown 08/03/2021 14:30 EDT 08/04/2021 17:19 EDT Provider Outr Resulting Lab MICROBIOLOGY - GENERAL ORDERABLES [facility] [address] [place] [address] documented in this encounter Visit Diagnoses Not on filedocumented in this encounter Care Teams Digital Media Intern Relationship Specialty Start Date End Date Emily Reyes FNP PCP - General 02/10/21 09/12/23 Maryan Moody MD [address] [place] [address] PCP - General 09/13/23 documented as of this encounter
--- OUTSIDE RECORDS SUMMARY | 2024-08-10 18:33 | XMS_ITS | Encounter Summary ---
Author Organization [facility] Address [address] [place] [address] Care Team Providers Care Box Sealing Inspector Name Role Phone Maryan Moody MD Primary Care Provider [phone] Reason for Visit * Reason Comments Contraception Encounter Details Date Type Department Care Team (Late st Contact Info) Description 11/14/2023 15:30 EST Office Visit [facility] OBGYN Services - [facility] [address] [place], [place] [address] Saima Langley MD [address] [place] [id number] Encounter for preoperative assessment (Primary Dx) Social History Tobacco Use Types [...] on file documented as of this encounter Last Filed Vital Signs Vital Sign Reading Time Taken Comments Blood Pressure 144/76 11/14/2023 1539 EST Pulse - - Temperature - - Respiratory Rate - - Oxygen Saturation - - Inhaled Oxygen Concentration - - Weight 72.8 kg (160 lb 6.4 oz) 11/14/[address] Height - - Body Mass Index 30.31 03/15/2022 1308 EDT documented in this encounter Functional Status Functional Status Response [...] as of this encounter Progress Notes * Saima Langley MD - 11/14/2023 1530 EST [facility] Clinic Note Chief Complaint: preop consents Subjective: Martha Wills is a 43yo who presents to sign consents for planned bilateral salpingectomy, hysteroscopy, D&C on 01/03/24. She had a telemedicine visit with Dr. Wu to discuss abnormal bleeding. At that visit indicated desire for permanent sterilization. She was extensively counseled on contraception options. Objective: BP (!) 144/76 Wt 72.8 kg (160 lb 6.4 oz) BMI 30.31 kg/m?? Gen: no apparent distress Assessment/Plan: Martha Wills is a 43 y.o. who presents to sign surgical, opioid, and sterilization consents. Sent home with surgical scrubbies and instructions. Patient had no other questions. Saima Langley MD Job Change Crew Member PGY-4 Pager [phone] * Karen Joaquin MD - 11/14/2023 1530 EST Attestation statement: I discussed the patient with the resident at the time of the visit. I agree with the findings and the plan of care documented in the resident's note. Karen Joaquin MD 11/14/2023 16:16 documented in this encounter Plan of Treatment Upcoming Encounters Date Type Department Care Team (Late st Contact Info) Description 09/07/2024 15:45 EDT Office Visit [facility] Cardiology Clinic [address] [place] [address] Alvino Schmid MD [address] [facility] [address] [place] [address] documented as of this encounter Visit Diagnoses Diagnosis Encounter for preoperative assessment- Primary documented in this encounter Historical Medications * This list may reflect changes made after this encounter. Medication Sig Dispensed Refills Start Date End Date olmesartan (BENICAR) 40 mg tablet Take 1 Tablet by mouth daily. 09/04/2023 meloxicam (MOBIC) 15 mg tablet TAKE 1 TABLET BY MOUTH EVERY DAY. DO NOT TAKE OTHER NSAIDS WITH THIS MED 10/21/2023 added in this encounter Care Teams Box Sealing Inspector Relationship Specialty Start Date End Date Maryan Moody MD [address] [place] [address] PCP - General 09/13/23 documented as of this encounter
--- OUTSIDE RECORDS SUMMARY | 2024-08-10 18:33 | XMS_ITS | Encounter Summary ---
Author Organization [facility] Address [address] [place] [address] Care Team Providers Care Car Attendant Name Role Phone Maryan Moody MD Primary Care Provider [phone] Encounter Details Date Type Department Care Team (Late st Contact Info) Description 01/03/2024 Prep for Procedure [facility] OBGYN Services - [address] [id number] Desirae Wu MD [address] [place] [address], [address] [place] [address] Social History Tobacco Use Types Packs/Day Years [...] Info) Description 09/07/2024 15:45 EDT Office Visit [facility] Cardiology Clinic [address] [place] [address] Alvino Schmid MD [address] [facility] [address] [place] [address] documented as of this encounter Visit Diagnoses Not on filedocumented in this encounter Care Teams Car Attendant Relationship Specialty Start Date End Date Maryan Moody MD [address] [place] [address] PCP - General 09/13/23 documented as of this encounter
--- OUTSIDE RECORDS SUMMARY | 2024-08-10 18:33 | XMS_ITS | Encounter Summary ---
Author Organization [facility] Address [address] [place] [address] Care Team Providers Care Lubricating Machine Tender Name Role Phone Maryan Moody MD Primary Care Provider [phone] Encounter Details Date Type Department Care Team (Latest Contact Info) Description 12/30/2023 12:40 EST - 12/30/2023 23:59 EST Hospital Encounter [facility] Pre-Surgical Testing [address] [place] [address] Discharge Disposition: Home or Self Care Social [...] Sign Reading Time Taken Comments Blood Pressure - - Pulse - - Temperature - - Respiratory Rate - - Oxygen Saturation - - Inhaled Oxygen Concentration - - Weight 72.6 kg (160 lb) 12/30/2023 1257 EST Height 154.9 cm (5' 1) 12/30/2023 1257 EST Body Mass Index 30.23 12/30/2023 1257 EST documented in this encounter Functional Status Functional [...] 1 Capsule by mouth 2 times daily. meloxicam (MOBIC) 15 mg tablet TAKE 1 TABLET BY MOUTH EVERY DAY. DO NOT TAKE OTHER NSAIDS WITH THIS MED 10/21/2023 olmesartan (BENICAR) 40 mg tablet Take 1 Tablet by mouth daily. 09/04/2023 buprenorphine HCl/naloxone HCl (SUBOXONE SL) Place 10 mg under the tongue daily. 06/11/2024 levothyroxine (SYNTHROID) 50 mcg tablet Take 88 mcg by mouth daily. 0 01/28/2019 06/11/2024 documented as of this encounter Discharge Disposition Disposition Code Departure Means Destination Home or Self Care documented in this encounter OR Notes * Preprocedure Instructions - Bruce Ingram, RN - 12/30/2023 1240 EST Martha Sanchez has been instructed as follows regarding medication administration for the day of the scheduled procedure. Date of Surgery: 01/03/2024 Instructions for Taking Medications Day of Surgery Medication Dose and frequency Last Dose Hold Day of Surgery Take Day of Surgery buprenorphine HCl/naloxone HCl (SUBOXONE SL) Place 10 mg under the tongue daily. x gabapentin (NEURONTIN) 300 mg capsule Take 1 Capsule by mouth 2 times daily. x levothyroxine (SYNTHROID) 50 mcg tablet Take 88 mcg by mouth daily. x meloxicam (MOBIC) 15 mg tablet TAKE 1 TABLET BY MOUTH EVERY DAY. DO NOT TAKE OTHER NSAIDS WITH THISMED 12/30/2023 x olmesartan (BENICAR) 40 mg tablet Take 1 Tablet by mouth daily. 01/01/2024 x At time of PAT pt states she was COVID positive 2 weeks ago ~ 12/16/2023. Per pt all symptoms have resolved. Pt did not take paxlovid. Stop all vitamins and supplements 7 days prior to surgery. Nonsteroidal anti-inflammatories (NSAIDS; i.e. ibuprofen, naproxen, indomethacin, ketorolac, Motrin) stop 3 days prior to surgery. Acetaminophen (Tylenol) can be taken prior to surgery if needed. Preparing for surgery: Fasting- Follow the eating and drinking instructions below unless otherwise instructed by your surgeon STOP all solid FOOD and LIQUIDS Containing Fats, including Milk, at midnight the night before surgery You May have FAT FREE CLEAR liquids until 2 hours before your scheduled time to arrive to the hospital on the day of surgery. Acceptable clear liquids include Water, apple juice, and sports drinks (Gatorade?? or Powerade?? avoid red and purple). On the day of your procedure, no gum, mints, lozenges or hard candy. Children under 1 year of age may have breast milk up to 4 hours and formula up to 6 hours before their procedure. Pedialyte?? is also an acceptable clear liquid for children. Safety Infection prevention Shower with an ANTIBACTERIAL SOAP the night before surgery and the morning of surgery. If you were given scrub sponges, use those also, scrubbing well over the area indicated by your surgeon. Do not shave your surgical site for 3 days prior to surgery. Protect Surgical Site from injury such as cuts, bruising or westfall After your morning shower avoid any personal care products such as creams, lotion, powders, deodorant, makeup, hairspray, perfumes or colognes. Ride home We require you have a responsible Adult to drive you home after surgery or to accompany you in getting home via Taxi or Bus Your Family Member/Ride Home should stay at the hospital during the procedure until you are discharged. If your ride can't stay in the hospital, they still need to come in to pick you up to assist with medication machine operator picker from pharmacy, review of discharge instructions and surgical consult. We ask that your ride stay within 15 minutes of the hospital for machine operator picker. CPAP/BiPAP Bring your CPAP or BiPAP machine in with you on the day of your surgery. Nail bermudian and Jewelry Remove all finger nail bermudian and makeup before surgery Remove all jewelry including rings and Body Piercings before coming in for Surgery. Glasses and Contacts Wear glasses on the Day of surgery. For eye surgeries avoid contacts for 7 days prior to surgery, unless otherwise instructed by your surgeon. Full beards Shaving is optional, certain aspects of the anesthetic management can be made easier without a fullbeard. Smoking Stop smoking tobacco and marijuana prior to surgery as much as possible with a minimum of 24 hours prior to surgery. Medications Inhalers Bring your inhalers in with you on the day of your surgery. Bowel cleansing Follow the instructions for bowel cleansing given to you by your surgeon. Once you start, drink lots of clear liquids, stopping them at the time your surgeon told you to stop. It would be best to stay at home while doing the bowel cleansing. Legal Guardianship BRING Proof of Guardianship on Day of Surgery. Legal Guardian is to be available on the Day of Surgery by Telephone if not physically present on the Day of Surgery. Surgical and/or other consents will be signed by Legal Guardian prior to the Day of Surgery if possible. Call your surgeon IF: You become ill before your surgery. You have any new skin problems near the area where your surgery will be, such as a rash, blister, or infection. You have any questions. Your surgeon may have given you other instructions to prepare for surgery. Please follow these and if you have questions call your surgeon's office. Day of surgery Identification Please bring a photo ID, insurance card and any other information needed for your surgery. Arrival General Arrival Time is 2 hours prior to your surgery time. Medications Take as directed above with a small sip of water on day of surgery. Bring a list of medications you take on the day of surgery. Leave medications at home. Clothing Wear casual, loose fitting and comfortable clothing. We recommend you wear/bring inexpensive (avoidsilks, etc.) clothing on Day of Surgery. For arm and hand surgery wear a zip up or button up shirt with short sleeves. For eye surgery, do not wear a shirt that pulls over the head unless it has a wide neck opening. Bring a hat with a visor or a pair of sunglasses to wear home after surgery. Medical Devices Bring any medical devices that you would normally use during the course of your day. These items include, but are not limited to: insulin pumps, mobility aids, CPAP. Valuables Bring only money you may need for you hospital co-pay and to purchase any prescriptions on the way home. Let the person driving you home hold you're your money while you are in surgery. Leave jewelry at home Leave contact lenses at home. Wear your eye glasses and bring your eye glass case. Leave valuable items at home. Ask a family member to bring them in after you have been admitted to the inpatient unit if possible. Equipment Remember to bring pillows for the car ride home to elevate your arm or leg (for arm/leg surgery). Bring Crutches if needed. Use the Volumetric Gas Leak Inspector given to you by your surgeon or nurse. Starting 2 weeks prior to your surgery use it 2 times a day, 10 times each use. Bring it with you on the day of your surgery. Visitation Per our Welcoming Policy ???Unit nursing staff may have to ask patients and families to limit numbers of family members at the bedside when it impacts the environment of care?? Typically two visitors are allowed in the Preop and Recovery areas. Bring plastic bags and paper towels in the car for the Trip Home. Contact information Patient/Family given Preop Contact Numbers appropriate to campus of surgery. For Day of Surgery: [facility] [place]: [phone]; [facility] [place]; [phone]. Prior to Day of Surgery call: [phone]. Pre-op toll Free Number . More information can also be found on our website: [email or web address] documented in this encounter Miscellaneous Notes * SONIA Carvalho - Nicki Peterson, ANNETTE CNM - 12/30/2023 1240 EST Anesthesia Review Needed Date Review Started: 12/30/2023 [place] ([facility]): main DOS: 01/03/2024 Surgeon: Bryce Procedure: HYSTEROSCOPY, DILATION AND CURETTAGE Notable Health History (Including but not limited to): Past Medical History: Diagnosis Date Arthritis Asthma 12/30/2023 exacerbated with URI's Depression Does not exercise 12/30/2022 no formal routine, pt can tolerate 2 flights of stairs Essential hypertension Noted 12/23/2023: tx w/ meds GERD (gastroesophageal reflux disease) 12/30/2023 per pt report, wakes pt at night approx 1X per week Heart murmur 12/30/2023 - per pt diagnosed a few years ago, pt thinks she had cardiac workup but was not sure History of COVID-19 covid + ~12/16/2023 - pt did not take paxlovid History of epidural anesthesia History of general anesthesia Hypothyroidism Opioid use disorder On Suboxone Thyroid disease Wears dentures 12/30/2023 uppers & lowers Situation: 1) At time of PAT pt states she was COVID positive 2 weeks ago ~ 12/16/2023. Per pt all symptoms (cough, congestion) have resolved. Pt did not take paxlovid. Pt did see surgeon 12/17/2023 via telemed visit & there is no notation of any URI symptoms on this visit note. 2) Pt has a history of a murmur. Per pt this was diagnosed a few years ago. Pt stated she thinks she had a cardiac workup, however, I see no notes or diagnostics from cards. Please investigate. HOSPITAL WELLNESS COORDINATOR Anesthesia Review Needed BRUCE INGRAM RN 12/30/2023 13:10 43 year old female with a 20 year smoking history and a history of depression,HTN, and opioid use disorder Pt will be 2 weeks post start of sx.No notation at time of H&P of illness. Pt has had filler leaf cutter long treatment of HTN.Looking at Consult from Dr Cedillo (03/15/2022),there is no mention of pt needi ng preoperative abx. If an innocent murmur was diagnosed pt would know that she would not need antibiotics for dental work and surgeries.Determine pt METS after speaking with her. I called pt to investigate and get answers to above questions. Unable to reach pt,LM for her to call back. [facility] DATA 12/18/2023 12/09/2023 12/18/2023 2 Suboxone 12 Mg-3 Mg Sl Film 28.00 28 Sa Mor [id number] Wal (0480) 0 12.00 mg Medicaid [place] 12/10/2023 12/09/2023 12/10/2023 2 Suboxone 4 Mg-1 Mg Sl Film 4.00 4 Prescriber is; Dr Juaquin Moody [phone] Nicki [place] [facility] [place] 13:47 Call to pt to inquire about above.LM to call me back. Nicki Peterson APRN,MSN 12/31/2023 8:58 Reached pt and she does not take antibiotics with dental work or prior to surgeries. Her heart murmur is noted but innocent. Pt does take suboxone 12-3mg daily. She was prescribed additional 4-1mg totake for pain relief after surgery. Pt able to complete >4 METS. Pt has been > 2 weeks without sx per pt-heart and lung assesment not noted on H&P. Pt will need to be reassessed DOS. Nicki Peterson APRN, [facility] [place] 12/31/2023 13:24 documented in this encounter Plan of Treatment Upcoming Encounters Date Type Department Care Team (Late st Contact Info) Description 09/07/2024 15:45 EDT Office Visit [facility] Cardiology Clinic [address] [place] [address] Alvino Schmid MD [address] [facility] [address] [place] [address] documented as of this encounter Visit Diagnoses Not on filedocumented in this encounter Care Teams Lubricating Machine Tender Relationship Specialty Start Date End Date Maryan Moody MD [address] [place] [address] PCP - General 09/13/23 documented as of this encounter
--- OUTSIDE RECORDS SUMMARY | 2024-08-10 18:33 | XMS_ITS | Encounter Summary ---
Author Organization [facility] Address [address] [place] [address] Care Team Providers Care Java Mobile Developer Name Role Phone Maryan Moody MD Primary Care Provider [phone] Reason for Referral * Specialty Diagnoses / Procedures Referred By Contac t Referred To Contact Haydee Amin MD [address] [place] [address] Referral ID Status Reason Start Date Expiration Date Visits Re quested Visits Authorized * Specialty Diagnoses / Procedures Referred By Contac t Referred To Contact Haydee Amin MD [address] [place] [address] Referral ID Status Reason Start Date Expiration Date Visits Re quested Visits Authorized Comments Call 911 anytime you think you may need emergency care. For example, call if: - You passed out (lost consciousness). - You have severe trouble breathing. - You have sudden chest pain and shortness of breath, or you cough up blood. Call your doctor now or seek immediate medical care if: - You have bright red vaginal bleeding that soaks one or more pads in an hour for two consecutive hours, or you have large clots. - You have foul-smelling discharge from your vagina. - You are sick to your stomach or cannot keep fluids down. - You have pain that does not get better after you take pain medicine. - You have loose stitches, or your incision comes open. - You have signs of infection, such as: - Increased pain, swelling, warmth, or redness. - Red streaks leading from the incision. - Pus draining from the incision. - A fever greater than 100.4 degrees F (38 degrees C). - You have signs of a blood clot, such as: - Pain in your calf, back of the knee, thigh, or groin. - Redness and swelling in your leg or groin. - You have trouble passing urine or stool, especially if you have pain or swelling in your lower belly. Watch closely for changes in your health, and be sure to contact your doctor if: - You do not have a bowel movement after taking a laxative. - You have hot flashes, sweating, flushing, or a fast heartbeat, but no fever. Reason for Visit * Auth/Cert (Routine) Specialty Diagnoses / Procedures Referred By Harriet mendoza Referred To Contact Diagnoses Abnormal uterine bleeding (AUB) Obesity (BMI 30-39.9) Sterilization Procedures NV HYSTEROSCOPY BX ENDOMETRIUM&/POLYPC W/WO D&C NV LAPAROSCOPY W/RMVL ADNEXAL STRUCTURES HYSTEROSCOPY, DILATION AND CURETTAGE Laparoscopic bilateral salpingectomy Referral ID Status Reason Start Date Expiration Date Visits Re quested Visits Authorized [id number] 1 1 Encounter Details Date Type Department Care Team (Late st Contact Info) Description 01/03/2024 8:58 EST - 01/03/2024 15:25 EST Hospital Encounter [facility] OR [address] [place] [id number] Desirae Wu MD [address] [place] [address], [facility], [address] [place] [address] Discharge Disposition: Home or Self Care Social [...] Sign Reading Time Taken Comments Blood Pressure 136/65 01/03/2024 1519 EST Pulse - - Temperature 36.3 ??C (97.3 ??F) 01/03/2024 1519 EST Respiratory Rate 12 01/03/2024 1502 EST Oxygen Saturation 96% 01/03/2024 1502 EST Inhaled Oxygen Concentration - - Weight 70.8 kg (156 lb 1.4 oz) 01/03/[address] Height 154.9 cm (5' 1) 01/03/2024 0929 EST Body Mass Index 29.49 01/03/2024 0929 EST documented in this encounter Functional Status [...] Yes 03/20/2019 documented as of this encounter Discharge Instructions * Discharge Instructions* Faisal Keen RN - 01/03/2024 14:23 EST You may resume Acetaminophen (Tylenol) at __ 4 pm ____. Please follow instructions for use on back of bottle. You may resume Ibuprofen (Advil) at __ 7:30 pm .Please follow instructions for use on back of bottle. documented in this encounter Medications at Time of Discharge [...] Discharge Disposition Disposition Code Departure Means Destination Comment s Home or Self Care Wheelchair Home documented in this encounter H&P Notes * Haydee Amin MD - 01/03/2024 1219 EST H&P Addendum: Gen: NAD CV: RRR Resp: CTAB Ext: WWP Haydee Amin MD 01/03/24 12:19 Obstetrics & Gynecology, PGY-3 Pager #[phone] * Desirae Wu MD - 01/03/2024 1114 EST The preoperative history and physical which was performed within 30 days of this procedure has beenreviewed and the clinically appropriate elements of the physical examination have been repeated. There are no changes to the documented history and physical or if so such changes are documented below Desirae Wu MD 01/03/2024 11:15 Source Note - Desirae Wu MD - 12/17/2023 10:30 EST CC: Abnormal uterine bleeding, desires permanent sterilization Martha Pre-op History of Present Illness: Thank you for sending Martha Sanchez for a RESIDENT CARE ASSISTANT consult. As you know, Martha is a 43 y.o. who presents to discuss abnormal uterine bleeding and permanent sterilization. Plan is for hysteroscopy, D&C, diagnostic laparoscopy, bilateral salpingectomy for permanent sterilization. Below is from our initial conversation. Of note today Martha request that she not be sent home with any prescription pain medicines. She will take [id number] medications for pain relief. Martha states that [...] stat for prolapsed cord at a [facility] in [facility]. Since that time she has had a [...] OB hx: -1-0-3 Full-term x2 then x1 RESIDENT CARE ASSISTANT hx: As above abnl paps No h/o [...] application used to conduct the visit was [id number]. I spent a total of 20 minutes on the date of this encounter meeting with the patient and reviewing documentation/coordinating care as described in the above note. Desirae Wu MD, 12/17/2023 10:09 documented in this encounter OR Notes * OR Surgeon - Haydee Amin MD - 01/03/2024 0929 EST Name: Martha Sanchez : 1980 Date of Service: 01/03/2024 Surgeon: Desirae Wu MD Caramel Candy Maker: Haydee Amin MD, Fransisco Schroeder MD Procedure: Laparoscopic bilateral salpingectomy, hysteroscopy, dilation and curettage, Nexplanon removal Anesthesia: General Preoperative Diagnosis: 1. Desires permanent sterilization 2. Vaginal bleeding Postoperative Diagnosis: Same Indications: 43 y.o. who desires permanent sterilization. She also has had persistent vaginal bleeding after a vaginal delivery. Risks/benefits of procedure discussed with patient including risk of failure and increased risk of ectopic gestation if occurs. Findings: Normal appearing external genitalia, vagina and cervix Anteverted uterus without adnexal masses Normal appearing uterus, tubes, and ovaries Atraumatic entry into abdomen Left ovary and fallopian tube with adhesions to pelvic sidewall Single omental adhesion to anterior abdominal wall Small band of adhesions at right pelvic sidewall near port site Excellent hemostasis at conclusion of case Uterine cavity without any abnormal findings No evidence of endometriosis lesions. Narrative: The patient was taken to the operating room where the general anesthesia was administered and foundto be sufficient. The patient was then examined under anesthesia and found to have a normal-sized anteverted uterus with normal adnexa. The Nexplanon was palpated in upper left inner arm. The area was prepped with chlorhexidine. Sterile gloves donned and sterile blue towels were placed. 1 cc 0.25% marcaine injected under distal tip of device while holding pressure on proximal end. Scalpel used to make 2 mm incision over distal tip and scar tissue cleared away. Device grasped with snap and removed intact. Pressure held for hemostasis. Incision covered with steri strips and a 2x2 gauze. She was then placed in the dorsal lithotomy position and prepared and draped in the normal sterile fashion. A speculum was then placed in the patient's vagina and the anterior lip of the cervix grasped with the [place] tenaculum. Rodriguez catheter was placed. Attention was then turned to the patient's abdomen where two penetrating towel clamps were used to tent the skin and a 10mm skin incision was made within the umbilicus fold under local anesthesia. The Veres needle was carefully introduced into the peritoneal cavity perpendicular to the abdomen while tenting the abdominal wall. Intraperitoneal placement was confirmed by use of a water-filled syringe and low intraabdominal pressure with insuflation of CO2 gas. The laparoscopic camera was introduced into the trocar and sleeve and all were advanced into the abdomen under video guidance with confirmation of intraabdominal placement. Pneumoperitoneum was obtained with CO2 gas to 15 mmHg. A secondskin incision was made 2cm anteromedial to the right anterior superior iliac spine. The second trocar and sleeve were then advanced under direct visualization. A third skin incision was made 2cm anteromedial to the right anterior superior iliac spine. The third trocar and sleeve were then advanced u nder direct visualization. A survey of the patient's pelvis and abdomen revealed the above findings. The patient's right fallopian tube was identified and followed out to the fimbreated end. The right tube was stabilized usinga grasper and a Harmonic scalpel was used to dissect the tube away from the mesosalpinx and the ovary, and was then ligated across the tubal insertion into the uterus. The operative site was examinedand found to be hemostatic. The left tube was then identified and the Harmonic scalpel was used to dissect it from the adhesions to the sidewall. The same procedure was repeated on the left. A bleeding edge was identified and coagulated using the bipolar. It was then hemostatic. The fallopian tubeswere removed through the laparoscopic port site. The intraabdominal pressure was dropped and hemostasis was confirmed visually. The procedure was then terminated. The instruments and trocars were removed from the patient's abdomen and CO2 gas was expressed from the abdomen. Port sites were closed with 4-0 monocryl and sealed with dermabond. The manipulator wasthen removed from the cervix and vagina. A weighted speculum was placed in the vagina and the anterior lip of the cervix was grasped with a tenaculum. The diagnostic hysteroscope was introduced into the uterine cavity using normal saline as the distending medium. The above findings were seen. The hysteroscope was removed from the uterine cavity. A [place] curette was then introduced and a thorough curetting was performed until the endometrium had a gritty texture. All instruments were then removed. The tenaculum site was noted to be hemostatic. The patient tolerated the procedure well. All counts were correct. The patient was taken to the recovery room in stable condition. Dr. Wu was present and scrubbed throughout the entire procedure. Estimated blood loss: 15cc IV fluids: 1L Urine Output: 300cc Specimens Sent: bilateral fallopian tubes, endometrial curettings Retained Materials: none Complications: none Disposition: PACU -> home Haydee Amin MD 01/03/24 13:39 Obstetrics & Gynecology, PGY-3 Pager #[phone] Associated attestation - Desirae Wu MD - 01/06/2024 1620 EST I was present and scrubbed throughout the procedure. Desirae Wu MD, 01/06/2024 16:20 documented in this encounter Plan of Treatment Upcoming Encounters Date Type Department Care Team (Late st Contact Info) Description 09/07/2024 15:45 EDT Office Visit [facility] [address] [place] [id number] Alvino Schmid MD [address] [facility] [address] [place] [phone] Scheduled Referrals Name Type Priority Associated Diagnoses Order Schedule PROVIDER FOLLOW-UP INSTRUCTIONS Outpatient Referral Routine Ordered: 01/03/2024 PROVIDER FOLLOW-UP INSTRUCTIONS Outpatient Referral Routine Ordered: 01/03/2024 documented as of this encounter Procedures Procedure Name Priority Date/Time Associated Diagnosis Comments SURGICAL PATHOLOGY Routine 01/03/2024 13 :26 EST LAPAROSCOPY, WITH ADNEXAL STRUCTURE EXCISION 01/03/2024 11:55 EST Abnormal uterine bleeding (AUB) Obesity (BMI 30-39.9) Sterilization HYSTEROSCOPY, POLYPECTOMY, DILATION AND CURETTAGE OF UTERUS, AND ENDOMETRIAL BIOPSY 01/03/2024 11:55 EST Abnormal uterine bleeding (AUB) Obesity (BMI 30-39.9) Sterilization TEST, URINE STAT 01/03/2024 9:25 EST documented in this encounter Results * SURGICAL PATHOLOGY (01/03/2024 13:26 EST) Note to Patient The following pathology results have been interpreted by your pathologist and may be available to you before your health provider has had the opportunity to review them. Please allow time for your provider to receive these results and explore management options, if applicable. 01/08/2024 15:44 [facility] Final Diagnosis A. 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 - Paratubal cyst. B. ENDOMETRIUM, CURETTAGE: - Inactive endometrium with tubal metaplasia. 01/08/2024 15:44 [facility] Attestation By the signature below, the attending physician certifies that they have 1) personally conducted a gross and/or microscopic examination of the described specimen(s), and/or personally interpreted the results of laboratory testing of the described specimen(s), and 2) personally rendered or confirmed the above diagnosis. 01/08/2024 15:44 [facility] at 1544 Clinical History Abnormal uterine bleeding (AUB), obesity (BMI 30-39.9), sterilization 01/08/2024 15:44 [facility] Gross Description A. Received in normal saline labelled with proper patient identification (initials R, A) and bilateral fallopian tubes are two unoriented fimbriated fallopian tubes (4.0 cm in length by 0.5 cm in diameter and 4.2 cm in length by 0.5 cm in diameter). Each tube has smooth, carrillo-colon serosa. Sectioning reveals patent lumens. Laundry Equipment Operator sections to include the bisected fimbria are submitted in A1 (shorter tube) and A2 (longer tube). B. Received in normal saline labelled with proper patient identification (initials R, A) and endometrial curettings is a 1.5 x 0.5 x 0.4 cm aggregate of red-brown to colon tissue. The specimen is entirely submitted in B1. OSVALDO WATSON(ASCP) 01/06/2024 8:46 01/08/2024 15:44 [facility] Performing Lab [facility] 01/08/2024 15:44 [facility] Scanned Images 01/08/2024 15:44 [facility] Tissue BOTH FALLOPIAN TUBES / Unknown 01/03/2024 13:26 EST 01/03/2024 17:02 EST Tissue specimen (specimen) ENDOMETRIAL STRUCTURE / Unknown 01/03/2024 13:41 EST 01/03/2024 17:02 EST Desirae Wu MD PATHOLOGY ORDERABLES Performing Organization Address City/[facility] Co de Phone Number [facility] [address] [place] [address] * TEST, URINE (01/03/2024 9:25 EST) Test, Urine Negative Negative 01/03/2024 9:[address] [facility] Comment:False negative resul ts may occur in women who are beyond 5-8 weeks gestation. Diagnosis of should be based on a correlation of test results with typical clinical signs and symptoms. Urine URINE / Unknown Urine Collect / Unknown 01/03/2024 9:25 EST 01/03/2024 9:30 EST Anshul Leung MD URINALYSIS ORDERABLE S Performing Organization Address City/[facility] Co de Phone Number [facility] [address] [place] [address] documented in this encounter Visit Diagnoses Diagnosis Abnormal uterine bleeding (AUB)- Primary Obesity (BMI 30-39.9) Obesity, unspecified Sterilization documented in this encounter Admitting Diagnoses Diagnosis Abnormal uterine bleeding (AUB) Obesity (BMI 30-39.9) Obesity, unspecified Sterilization documented in this encounter Administered Medications Inactive Administered Medications - up to 3 most recent administrations Medication Order MAR Action Action Date Dose Rate Site acetaminophen (TYLENOL) tablet 1,000 mg 1,000 mg, oral, PRE-OP ONCE, 1 dose, On Sat01/03/24 at 0930, Routine, Preprocedure Given 01/03/2024 9:40 EST 1,000 mg atropine 0.1 mg/mL syringe 0.5 mg 0.5 mg, intravenous, PRN, Starting on Sat01/03/24 at 1354, Until Sat01/03/24 at 1736, Symptomatic HR < 50, Routine, Recovery (only) chlorhexidine gluconate 2 % cloth 1 Each 1 Each, topical, DAILY, 1 dose, First dose on Sat01/03/24 at 0930, Routine, Preprocedure Given 01/03/2024 9:32 EST 1 Each diphenhydrAMINE (BENADRYL) injection 12.5 mg 12.5 mg, intravenous, PRN, 1 dose, Starting on Sat01/03/24 at 1354, Until Sat01/03/24 at 1736, nausea, Routine, Recovery (only) HYDROmorphone (DILAUDID) tablet 2-4 mg 2-4 mg, oral, EVERY 30 MINUTES PRN, 2 doses, Starting on Sat01/03/24 at 1455, Until Sat01/03/24 at 1736, Pain, Routine, Recovery (only) Given 01/03/2024 15:01 EST 4 mg lactated ringers (LR) infusion at 25 mL/hr, intravenous, CONTINUOUS, Starting on Sat01/03/24 at 0930, Until Sat01/03/24 at 1736, Routine, Preprocedure Restarted 01/03/2024 12:59 EST Continued by Anesthesia 01/03/2024 12:05 EST 25 mL/hr New Bag 01/03/2024 9:40 EST 25 mL/hr lactated ringers (LR) infusion at 75 mL/hr, intravenous, PACU CONTINUOUS, Starting on Sat01/03/24 at 1415, Until Sat01/03/24 at 1736, Routine, Recovery (only) Rate Documented 01/03/2024 14:04 EST 75 mL /hr naloxone (NARCAN) injection 0.2 mg 0.2 mg, intravenous, PRN, Starting on Sat01/03/24 at 1354, Until Sat01/03/24 at 1736, Opioid Reversal, Routine, Recovery (only) ondansetron (PF) (ZOFRAN) injection 4 mg 4 mg, intravenous, PRN, 1 dose, Starting on Sat01/03/24 at 1354, Until Sat01/03/24 at 1736, Nausea, Vomiting, Routine, Recovery (only) documented in this encounter Active and Recently Administered Medications Times are shown in EST. Scheduled Medication Order 01/01/2024 01/02/2024 01/03/2024 acetaminophen (TYLENOL) tablet 1,000 mg (COMPLETED) 1,000 mg, oral, PRE-OP ONCE, 1 dose, On Sat01/03/24 at 0930, Routine, Preprocedure 0940 (Given - Provid er: Shweta Molina RN) chlorhexidine gluconate 2 % cloth 1 Each (COMPLETED) 1 Each, topical, DAILY, 1 dose, First dose on Sat01/03/24 at 0930, Routine, Preprocedure 0932 (Given - Provid er: Shweta Molina RN) Continuous Medication Order 01/01/2024 01/02/2024 01/03/2024 lactated ringers (LR) infusion at 25 mL/hr, intravenous, CONTINUOUS, Starting on Sat01/03/24 at 0930, Until Sat01/03/24 at 1736, Routine, Preprocedure 0940 (New Bag - Prov ider: Shweta Molina RN)1205 (Continued by Anesthesia - Provider: Khushboo Gan CRNA)1258 (Paused - Provider: Khushboo Gan CRNA - Comment: Switch to gravity)1259 (Restarted - Provider: Khushboo Gan CRNA)1322 (Anesthesia Volume Adjustment - Provider: Khushboo Gan CRNA)1346 (Completed - Provider: Khushboo Gan CRNA) lactated ringers (LR) infusion at 75 mL/hr, intravenous, PACU CONTINUOUS, Starting on Sat01/03/24 at 1415, Until Sat01/03/24 at 1736, Routine, Recovery (only) 1404 (Rate Documente d - Provider: Faisal Keen, JOSE MANUEL) PRN Medication Order 01/01/2024 01/02/2024 01/03/2024 atropine 0.1 mg/mL syringe 0.5 mg 0.5 mg, intravenous, PRN, Starting on Sat01/03/24 at 1354, Until Sat01/03/24 at 1736, Symptomatic HR < 50, Routine, Recovery (only) BUPivacaine (PF) (MARCAINE) 0.25 % (2.5 mg/mL) injection (CANCELED) PRN, Starting on Sat01/03/24 at 1308, Until Sat01/03/24 at 1400, Routine, Intraprocedure 1308 (Given - Provid er: Desirae Wu MD - Comment: 1ml into left arm5ml into abdominal sites) diphenhydrAMINE (BENADRYL) injection 12.5 mg 12.5 mg, intravenous, PRN, 1 dose, Starting on Sat01/03/24 at 1354, Until Sat01/03/24 at 1736, nausea, Routine, Recovery (only) HYDROmorphone (DILAUDID) tablet 2-4 mg 2-4 mg, oral, EVERY 30 MINUTES PRN, 2 doses, Starting on Sat01/03/24 at 1455, Until Sat01/03/24 at 1736, Pain, Routine, Recovery (only) 1501 (Given - Provid er: Faisal Keen RN) naloxone (NARCAN) injection 0.2 mg 0.2 mg, intravenous, PRN, Starting on Sat01/03/24 at 1354, Until Sat01/03/24 at 1736, Opioid Reversal, Routine, Recovery (only) ondansetron (PF) (ZOFRAN) injection 4 mg 4 mg, intravenous, PRN, 1 dose, Starting on Sat01/03/24 at 1354, Until Sat01/03/24 at 1736, Nausea, Vomiting, Routine, Recovery (only) sodium chloride 0.9 % irrigation (CANCELED) PRN, Starting on Sat01/03/24 at 1346, Until Sat01/03/24 at 1400, Routine, Intraprocedure 1346 (Given - Provid er: Desirae Wu MD) documented in this encounter Orders Medications Ordered That Shashank ht Not Have Been Administered Count Last Ordered Date First Ordered Date atropine 0.1 mg/mL syringe 0.5 mg 1 024 BUPivacaine (PF) (MARCAINE) 0.25 % (2.5 mg/mL) injection 1 01/03/2024 chlorhexidine gluconate 2 % cloth 1 Each 1 01/03/2024 diphenhydrAMINE (BENADRYL) i njection 12.5 mg 1 01/03/2024 gabapentin (NEURONTIN) capsule 600 mg 1 01/2024 lidocaine (PF) 10 mg/mL (1 % ) injection 2 mg 1 01/03/2024 naloxone (NARCAN) injection 0.2 mg 1 2023 ondansetron (PF) (ZOFRAN) injection 4 mg 1 01/03/2024 sodium chloride 0.9 % irrigation 1 01/03/20 Diet Count Last Ordered Date First Orde red Date DISCHARGE DIET 1 01/03/2024 Nursing Count Last Ordered Date First Orde red Date ACTIVITY INSTRUCTIONS 1 01/03/2024 WOUND CARE INSTRUCTIONS 1 01/03/2024 Discharge Count Last Ordered Date First Orde red Date DISCHARGE PATIENT 1 01/03/2024 documented in this encounter Care Teams Java Mobile Developer Relationship Specialty Start Date End Date Maryan Moody MD [address] [place] [address] PCP - General 09/13/23 documented as of this encounter
--- OUTSIDE RECORDS SUMMARY | 2024-08-10 18:33 | XMS_ITS | Encounter Summary ---
Author Organization [facility] Address [address] [place] [address] Care Team Providers Care Pulp Plant Supervisor Name Role Phone Maryan Moody MD Primary Care Provider [phone] Encounter Details Date Type Department Care Team (Late st Contact Info) Description 01/03/2024 Orders Only [facility] - [facility] [address] [place], [place] [id number] Desirae Wu MD [address] [place] [address], [facility] [address] [place] [address] Social History Tobacco Use Types [...] Info) Description 09/07/2024 15:45 EDT Office Visit [facility] [address] [place] [address] Alvino Schmid MD [address] [place] [address] [facility] [address] [place] [address] documented as of this encounter Visit Diagnoses Not on filedocumented in this encounter Care Teams Pulp Plant Supervisor Relationship Specialty Start Date End Date Maryan Moody MD [address] [place] [address] PCP - General 09/13/23 documented as of this encounter
--- OUTSIDE RECORDS SUMMARY | 2024-08-10 18:33 | XMS_ITS | Encounter Summary ---
Author Organization [facility] Address [address] [place] [address] Care Team Providers Care Unified Communications Architect Name Role Phone Maryan Moody MD Primary Care Provider Reason for Referral * GEOPHYSICS TEACHER (Routine) - Authorization Not Required Specialty Diagnoses / Procedures Referred By Contac t Referred To Contact Diagnoses Abnormal uterine and vaginal bleeding, unspecified Procedures US PELVIS TRANSVAGINAL COMPLETE Kierra Cunningham APRN [address] [place] [address] [facility] PINION POLISHER/MARCOS Referral ID Status Reason Start Date Expiration Date Visits Requested Visits Authorized [id number] Authorization Not Required 07/15/2023 1 1 Reason for Visit * GEOPHYSICS TEACHER (Routine) - Authorization Not Required Specialty Diagnoses / Procedures Referred By Contac t Referred To Contact Diagnoses Abnormal uterine and vaginal bleeding, unspecified Procedures US PELVIS TRANSVAGINAL COMPLETE Kierra Cunningham APRN [address] [place] [address] [facility] PINION POLISHER/MARCOS Referral ID Status Reason Start Date Expiration Date Visits Requested Visits Authorized [id number] Authorization Not Required 07/15/2023 1 1 Encounter Details Date Type Department Care Team (Latest Contact Info) Description 09/17/2023 14:00 EDT - 09/17/2023 23:59 EDT Hospital Encounter [facility] Obstetrics Services - [address] [address] Abnormal uterine and vaginal bleeding, unspecified Discharge Disposition: Home or Self Care Social [...] 1 Capsule by mouth 2 times daily. olmesartan (BENICAR) 40 mg tablet Take 1 Tablet by mouth daily. 09/04/2023 amitriptyline (ELAVIL) 50 mg tablet Take 50 mg by mouth daily. 09/24/2023 buprenorphine HCl/naloxone HCl (SUBOXONE SL) Place 10 mg under the tongue daily. 06/11/2024 levothyroxine (SYNTHROID) 50 mcg tablet Take 88 mcg by mouth daily. 0 01/28/2019 06/11/2024 lisinopril (PRINIVIL, ZESTRIL) 20 mg tablet Take 20 mg by mouth daily. 09/24/2023 loratadine (CLARITIN) 10 mg tablet Take 10 mg by mouth daily. 09/24/2023 meloxicam (MOBIC) 15 mg tablet Take 15 mg by mouth daily. 09/24/2023 methocarbamol (ROBAXIN) 500 mg tablet Take 500 mg by mouth at bedtime. 09/24/2023 norgestimate-ethinyl estradiol (HERO) 0.25-35 mg-mcg per tablet Take 1 tablet by mouth daily. 09/24/2023 PNV Comb#51-[id number]-[id number] 3 29-1-400 mg combo pack,tablet and cap,DR Take by mouth. RANITIDINE HCL ORAL Take 10 mg by mouth daily. 09/24/2023 documented as of this encounter Discharge Disposition Disposition Code Departure Means Destination Home or Self Care documented in this encounter Plan of Treatment Upcoming Encounters Date Type Department Care Team (Late st Contact Info) Description 09/07/2024 15:45 EDT Office Visit [facility] Cardiology Clinic [address] [place] [phone] Alvino Schmid MD [address] [place], [place] [address]A [address] [place] [phone] documented as of this encounter Procedures Procedure Name Priority Date/Time Associated Diagnosis Comments US PELVIS TRANSVAGINAL COMPLETE Routine 09/17/2023 14:13 EDT Abnormal uterine and vaginal bleeding, unspecified documented in this encounter Results * US PELVIS TRANSVAGINAL COMPLETE (09/17/2023 14:13 EDT) Anatomical Region Laterality Modality Pelvis Ultrasound 09/17/2023 14:1 7 EDT Narrative 09/17/2023 14:54 EDT Indication ======== AUB Assessment LMP on 09/11/2023 Uterus ====== Uterus: ?Appears normal Uterus position: ?? Anteverted Description of uterine malformations: ??None Myometrium: ?Heterogeneous. scar present Endometrium: ?? Heterogenous endometrium with echogenic focus at the fundus. Endometrium with indistinct borders Uterus length ??62.5 mm Uterus width ?? 37.8 mm Uterus height ??24.1 mm Endometrial thickness, total ?? 5.7 mm Right Ovary ========= Rt ovary: ??Visualized Outline: ?? Smooth Rt ovary morphology: ?? dominant follicle present Rt ovary D1 ?20.1 mm Rt ovary D2 ?24.7 mm Rt ovary D3 ?15.9 mm Rt ovary Vol ?? 4.1 cm cubed Rt ovarian follicle(s): ?Follicles identified Rt ovarian follicle D1 17.7 mm Rt ovarian follicle D2 11.6 mm Rt ovarian follicle D3 20.7 mm Rt ovarian follicle mean ?? 16.6 mm Rt ovarian follicle vol ?2.215 cm cubed Left Ovary ======== Lt ovary: ??Visualized Outline: ?? Smooth Lt ovary morphology: ?? normal physiologic changes Lt ovary D1 ?12.3 mm Lt ovary D2 ?14.6 mm Lt ovary D3 ?17.5 mm Lt ovary Vol ?? 1.6 cm cubed Cul de Sac ========= Appears normal. No free fluid visualized Method ====== Transvaginal ultrasound examination. View: Good view Impression ========= Transvaginal Pelvic -14307 Anteverted uterus with normal bilateral ovaries. Endometrium appears heterogenous with indistinct borders. There is an echogenic focus at the fundus that may represent calcifications of vessels vs old retained tissue. Follow-up ======== Plan by OBGYN Comment ======== N93.9 abnormal uterine bleeding, unspecified DATE OF SERVICE: 09/17/2023 Procedure Note Katrina Romo MD - 09/17/2023 Indication ======== AUB Assessment LMP on 09/11/2023 Uterus ====== Uterus: Appears normal Uterus position: Anteverted Description of uterine malformations: None Myometrium: Heterogeneous. scar present Endometrium: Heterogenous endometrium with echogenic focus at thefundus. Endometrium with indistinct borders Uterus length 62.5 mm Uterus width 37.8 mm Uterus height 24.1 mm Endometrial thickness, total 5.7 mm Right Ovary ========= Rt ovary: Visualized Outline: Smooth Rt ovary morphology: dominant follicle present Rt ovary D1 20.1 mm Rt ovary D2 24.7 mm Rt ovary D3 15.9 mm Rt ovary Vol 4.1 cm cubed Rt ovarian follicle(s): Follicles identified Rt ovarian follicle D1 17.7 mm Rt ovarian follicle D2 11.6 mm Rt ovarian follicle D3 20.7 mm Rt ovarian follicle mean 16.6 mm Rt ovarian follicle vol 2.215 cm cubed Left Ovary ======== Lt ovary: Visualized Outline: Smooth Lt ovary morphology: normal physiologic changes Lt ovary D1 12.3 mm Lt ovary D2 14.6 mm Lt ovary D3 17.5 mm Lt ovary Vol 1.6 cm cubed Cul de Sac ========= Appears normal. No free fluid visualized Method ====== Transvaginal ultrasound examination. View: Good view Impression ========= Transvaginal Pelvic -13253 Anteverted uterus with normal bilateral ovaries. Endometrium appearsheterogenous with indistinct borders. There is an echogenic focus at thefundus that may represent calcifications of vessels vs old retained tissue. Follow-up ======== Plan by OBGYN Comment ======== N93.9 abnormal uterine bleeding, unspecified DATE OF SERVICE: 09/17/2023 Kierra Cunningham CHILD GUIDANCE COUNSELOR IMG OB ORDERA BLES documented in this encounter Visit Diagnoses Diagnosis Abnormal uterine and vaginal bleeding, unspecified documented in this encounter Care Teams Unified Communications Architect Relationship Specialty Start Date End Date Maryan Moody MD [address] [place] [address] PCP - General 09/13/23 documented as of this encounter
--- OUTSIDE RECORDS SUMMARY | 2024-08-10 18:33 | XMS_ITS | Encounter Summary ---
Author Organization [facility] Address [address] [place] [address] Care Team Providers Care Quality Assurance Qa Lab Analyst Name Role Phone Emily Reyes GROUND LAYER Primary Care Provider Reason for Visit * Reason Comments Advice Only pre-preg: suboxone u se * Referral (Routine) - Authorization Not Required Specialty Diagnoses / Procedures Referred By Harriet t Referred To Contact Obstetrics Diagnoses Encounter for other general counseling and advice on procreation Kierra Cunningham, OILING MACHINE OPERATOR [address] [place] [address] [facility] [address] [place] [id number] Referral ID Status Reason Start Date Expiration Date Visits Requested Visits Authorized [id number] Authorization Not Required 1 1 Encounter Details Date Type Department Care Team (Late st Contact Info) Description 03/15/2022 13:00 EDT Initial consult [facility] Obstetrics & Midwifery - [facility] [address] [place], [place] [address] Zuleyma Cedillo MD [address] [facility], [address] [place] [address] Primary hypertension (Primary Dx); Opioid use disorder; Encounter for preconception consultation; Antepartum multigravida of advanced maternal age; History of delivery Social History Tobacco Use Types Packs/Day Years [...] Sign Reading Time Taken Comments Blood Pressure 188/90 03/15/2022 1308 EDT Pulse - - Temperature - - Respiratory Rate - - Oxygen Saturation - - Inhaled Oxygen Concentration - - Weight 69.3 kg (152 lb 12.8 oz) 03/15/2022 1308 EDT Height 154.9 cm (5' 1) 03/15/2022 1308 EDT Body Mass Index 28.87 03/15/2022 1308 EDT documented in this encounter [...] as of this encounter Progress Notes * Zuleyma Cedillo MD - 03/15/2022 1300 EDT M Consult Dear Ms. Cunningham, Thank you for asking M to see Martha Lalan. She is a 41 y.o. planning . Her OB hx is as follows: OB History Para Term AB Living 2 2 1 1 1 SAB TAB Ectopic Multiple Live Births 1 # Outcome Date GA Lbr Julian/2nd Weight Sex Delivery Anes PTL Lv 2 2005 36w0d 2523 g (5 lb 9 oz) F Vag-Spont 1 Term 1997 40w0d 3402 g (7 lb 8 oz) F Vag-Spont DELL She had no Dm or HTN/preeclampsia with prior pregnancies. Spont labor 36 wks. Plans to have nexplanon removed tomorrow. States moving to [place] in a month Her medical hx is as follows: (1) HTN-was dx in her 20's and has been on medication since then. States well controlled on clonidine and lisinopril but stopped both yesterday. She has not started other meds but plans to see you tomorrow to talk about medications. She has been followed by you and states good control (2) OUD-has been in rx since 2006; has not had a counselor for a year but sees you regularly and you prescribe suboxone. Has returned to use once 6-7 yrs ago none since. Denies IV. 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 Is on Gabapentin was on 900 TID has weaned to 600 BID andcontinues to wean without dicfficulty (4) Smoker 1 ppd and states weaning, has 802Quit referral, has nicotine replacement (5) will be AMA All: Viox-swelling; PCN throat swelling, went to ED Meds: Suboxone 10 mg, thyroxine, gabapentin, PNV PMH: as above, heart murmur, hypothyroid PSH: anklex2, kneex3, leepx3 (after first preg but before last preg) SH: smokes 1ppd No ETOH THC 1-2 gm/day Works [facility] facility BP (!) 188/90 Ht 154.9 cm (61) Wt 69.3 kg (152 lb 12.8 oz) BMI 28.87 kg/m?? Disc the following: (1) She needs to start HTN meds JULES-has appt tomorrow. Rec Nifedipine 30 XL and titrate to bp as recommended for CHTN (120/80 range). Can add labetalol if needed. Disc increased risk preeclampsia, FGR and role of ASA (162 mg) for prevention. Disc need for serial US and monitoring after 32 wks. Disc while risk as high as 50%, if bp controlled outcomes overall good. Consider baseline maternal echoin given long standing CHTN. Needs Cr prior to preg. (2) OUD-disc Suboxone and importance of smoking cessation to reduce risk of POPEYE. Pt asked about weaning-disc given planned recent move, stress of New family etc better approach would be to work on smoking cessation than wean Suboxone given palnned stressors and very high mortality that can be associated with return to use. Did not ask if had Hep C screen, should have this done pre- (3) Knee pain-can stay on gabapentin if needed for pain, reasonable to wean to minimal dose (4) Smoker-will plan to wean, disc minimal amt even if can not quit will improve preg outcome and reduce risk of POPEYE (5) AMA-disc dx, start with NIPT, role of US, screen for DM, risk preeclampsia (higher related to HTN). Disc increased risk SAB, excellent chance successful preg even if has SAB (6) hx PTB 36 wks; while generally just assess one cx length 20 wks given LEEPx3 reasonable to assess at 16 wks and 20 wks; if any question q2 wks 16-23 wks Opioid use disorder In rx since 2006 No injection Only other substance THC Has not had counselor in a year-at [facility] Last return to use 6-7 yrs ago No cocaine, stimulants Did not disc Hep C screen-needs if has not had Cont suboxone Disc reduce smoking to reduce POPEYE risk Plans move in 1 month and new family: disc ensure stability prior to wean Suboxone Antepartum multigravida of advanced maternal age Disc increased risk SAB Disc NIPT for genetics Disc increased risk GDm, preeclmampsia Encounter for preconception consultation Nexplanon out tomorrow Disc PNV-taking Disc ASA 12 wks in to reduce risk preeclampsia Disc follow growth, testing due to HTN Disc risk GDm, preeclampsia Disc excellent change good preg outcome Disc smoking cessation as most important (after bp control) for preg outcome and POPEYE (has patch, inhaler, 802quit line) Needs Hep C screen and Cr prior to Primary hypertension Dx age 20's Has been on meds since then No renal disease was on clonidine and lisinopril-stopped few days ago Disc importance of bp control-has PCP appt tomorrow rec initiate nifedipine 30 XL and titrate to normotensive Consider baseline maternal echo for long standing HTN Needs Cr prior to Chronic pain due to trauma Knee pain due to trauma Gabapentin 900 TID now weaned to 600 BID Cont wean to minimal dose History of delivery 36 wks S/p leep x3 Reasonable to assess cx length 16 wks and if nl then 20 wks; if any question then q2 wks from 16 wks Recommend: Cont vits Rx CHTN JULES and titrate to 120/80 range Screen Hep C, Cr prior to I saw and examined pt. I spent 60 minutes today on the encounter. Zuleyma Cedillo MD documented in this encounter Miscellaneous Notes * Assessment & Plan Note - Zuleyma Cedillo MD - 03/15/2022 1851 EDTAssociated Problem(s): History of delivery 36 wks S/p leep x3 Reasonable to assess cx length 16 wks and if nl then 20 wks; if any question then q2 wks from 16 wks * Assessment & Plan Note - Zuleyma Cedillo MD - 03/15/2022 1848 EDTAssociated Problem(s): Chronic pain due to trauma Knee pain due to trauma Gabapentin 900 TID now weaned to 600 BID Cont wean to minimal dose * Assessment & Plan Note - Zuleyma Cedillo MD - 03/15/2022 1418 EDTAssociated Problem(s): Primary hypertension Dx age 20's Has been on meds since then No renal disease was on clonidine and lisinopril-stopped few days ago Disc importance of bp control-has PCP appt tomorrow rec initiate nifedipine 30 XL and titrate to normotensive Consider baseline maternal echo for long standing HTN Needs Cr prior to * Assessment & Plan Note - Zuleyma Cedillo MD - 03/15/2022 1417 EDTAssociated Problem(s): Encounter for preconception consultation Nexplanon out tomorrow Disc PNV-taking Disc ASA 12 wks in to reduce risk preeclampsia Disc follow growth, testing due to HTN Disc risk GDm, preeclampsia Disc excellent change good preg outcome Disc smoking cessation as most important (after bp control) for preg outcome and POPEYE (has patch, inhaler, 802quit line) Needs Hep C screen and Cr prior to * Assessment & Plan Note - Zuleyma Cedillo MD - 03/15/2022 1414 EDTAssociated Problem(s): Antepartum multigravida of advanced maternal age Disc increased risk SAB Disc NIPT for genetics Disc increased risk GDm, preeclmampsia * Assessment & Plan Note - Zuleyma Cedillo MD - 03/15/2022 1413 EDTAssociated Problem(s): Opioid use disorder In rx since 2006 No injection Only other substance THC Has not had counselor in a year-at [facility] Last return to use 6-7 yrs ago No cocaine, stimulants Did not disc Hep C screen-needs if has not had Cont suboxone Disc reduce smoking to reduce POPEYE risk Plans move in 1 month and new family: disc ensure stability prior to wean Suboxone documented in this encounter Plan of Treatment Upcoming Encounters Date Type Department Care Team (Late st Contact Info) Description 09/07/2024 15:45 EDT Office Visit [facility] Cardiology Clinic [address] [place] [address] Alvino Schmid MD [address] [facility] [address] [place] [address] documented as of this encounter Visit Diagnoses Diagnosis Primary hypertension- Primary Unspecified essential hypertension Opioid use disorder Encounter for preconception consultation Other procreative management counseling and advice Antepartum multigravida of advanced maternal age History of delivery documented in this encounter Historical Medications * This list may reflect changes made after this encounter. Medication Sig Dispensed Refills Start Date End Date PNV Comb#75-Fakg-CE-[place] 3 29-1-400 mg combo pack,tablet and cap, Take by mouth. 09/24/2023 added in this encounter Care Teams Quality Assurance Qa Lab Analyst Relationship Specialty Start Date End Date Emily Reyes FNP PCP - General 02/10/21 09/12/23 documented as of this encounter
--- OUTSIDE RECORDS SUMMARY | 2024-08-10 18:33 | XMS_ITS | Encounter Summary ---
Author Organization [facility] Address [address] [place] [address] Care Team Providers Care Radio Disc Jockey Name Role Phone Maryan Moody MD Primary Care Provider [phone] Encounter Details Date Type Department Care Team (Late st Contact Info) Description 06/02/2024 Lab Requisition [facility] Pathology & Laboratory Medicine - [facility] [address] [place] [address] Maryan Moody MD [address] [place] [phone] Personal history of neoplasm of uncertain behavior; Neoplasm of uncertain behavior of skin Social History Tobacco Use Types Packs/Day Years [...] Info) Description 09/07/2024 15:45 EDT Office Visit [facility] Cardiology Clinic [address] [place], [place] [phone] Alvino Schmid MD [address] [facility] [address] [place] [address] documented as of this encounter Procedures Procedure Name Priority Date/Time Associated Diagnosis Comments SURGICAL PATHOLOGY Today 06/01/2024 15 :00 EDT Personal history of neoplasm of uncertain behavior Neoplasm of uncertain behavior of skin documented in this encounter Results * SURGICAL PATHOLOGY (06/01/2024 15:00 EDT) Note to Patient The following pathology results have been interpreted by your pathologist and may be available to you before your health provider has had the opportunity to review them. Please allow time for your provider to receive these results and explore management options, if applicable. 06/05/2024 11:23 [facility] Final Diagnosis A. SKIN OF SHOULDER, RIGHT, SHAVE BIOPSY: - Basal cell carcinoma, superficial and nodular type (pigmented). - Basal cell carcinoma does not extend to edges of shave biopsy specimen in the plane of the sections examined. - Basal cell carcinoma present approximately 0.5 mm from peripheral tissue edge. 06/05/2024 11:23 [facility] Attestation By the signature below, the attending physician certifies that they have 1) personally conducted a gross and/or microscopic examination of the described specimen(s), and/or personally interpreted the results of laboratory testing of the described specimen(s), and 2) personally rendered or confirmed the above diagnosis. 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 06/05/2024 11:23 [facility] Clinical History Dysplastic nevus; clinical diagnosis code: D48.5, Z86.03 06/05/2024 11:23 [facility] Gross Description A. Received in [...] A1. OSVALDO MCRAE(ASCP) 06/03/2024 9:05 06/05/2024 11:23 [facility] Performing Lab [facility] 06/05/2024 11:23 [facility] Scanned Images 06/05/2024 11:23 [facility] Tissue SPECIMEN FROM SKIN / Unknown 06/01/2024 15:00 EDT 06/02/2024 18:17 EDT Maryan Moody MD PATHOLOGY ORDERABLES [facility] [address] [place] [address] documented in this encounter Visit Diagnoses Diagnosis Personal history of neoplasm of uncertain behavior Personal history of other specified diseases Neoplasm of uncertain behavior of skin documented in this encounter Care Teams Radio Disc Jockey Relationship Specialty Start Date End Date Maryan Moody MD [address] [place] [address] PCP - General 09/13/23 documented as of this encounter
--- OUTSIDE RECORDS SUMMARY | 2024-08-10 18:33 | XMS_ITS | Encounter Summary ---
Author Organization [facility] Address [address] [place] [address] Care Team Providers Care Stereoptic Projection Topographer Name Role Phone Maryan Moody MD Primary Care Provider Reason for Referral * Cardiology (Routine/Next Available) - Authorization Not Required Specialty Diagnoses / Procedures Referred By Contac t Referred To Contact Diagnoses Nonrheumatic aortic (valve) insufficiency Procedures TRANSTHORACIC ECHO (TTE) COMPLETE NV ECHO TTHRC R-T 2D W/WOM-MODE COMPL SPEC&COLR Maryan Nevarez MD [address] [place] [address] [facility] Referral ID Status Reason Start Date Expiration Date Visits Requested Visits Authorized [id number] Authorization Not Required 05/18/2024 1 1 Reason for Visit * Cardiology (Routine/Next Available) - Authorization Not Required Specialty Diagnoses / Procedures Referred By Contac t Referred To Contact Diagnoses Nonrheumatic aortic (valve) insufficiency Procedures TRANSTHORACIC ECHO (TTE) COMPLETE NV ECHO TTHRC R-T 2D W/WOM-MODE COMPL SPEC&COLMaryan Garner MD [address] [place] [address] [facility] Referral ID Status Reason Start Date Expiration Date Visits Requested Visits Authorized [id number] Authorization Not Required 05/18/2024 1 1 Encounter Details Date Type Department Care Team (Latest Contact Info) Description 06/02/2024 13:59 EDT - 06/02/2024 14:04 EDT Hospital Encounter [facility] Non-Invasive Cardiology [address] [place] [address] Nonrheumatic aortic (valve) insufficiency Discharge Disposition: Home [...] Info) Description 09/07/2024 15:45 EDT Office Visit [facility] Cardiology Clinic [address] [place] [address] Alvino Schmid MD [address] [place] [address]A [address] [place] [phone] documented as of this encounter Procedures Procedure Name Priority Date/Time Associated Diagnosis Comments TRANSTHORACIC ECHO (TTE) COMPLETE Routine 06/02/2024 14:35 EDT Nonrheumatic aortic (valve) insufficiency documented in this encounter Results * TRANSTHORACIC ECHO (TTE) COMPLETE W/DOPPLER W/CF [...] Maryan Moody MD CARDIAC ECHO ORDERAB LES documented in this encounter Visit Diagnoses Diagnosis Nonrheumatic aortic (valve) insufficiency documented in this encounter Care Teams Stereoptic Projection Topographer Relationship Specialty Start Date End Date Maryan Moody MD [address] [place] [phone] PCP - General 09/13/23 documented as of this encounter
--- OUTSIDE RECORDS SUMMARY | 2024-08-10 18:33 | XMS_ITS | Encounter Summary ---
Author Organization [facility] Address [address] [place] [address] Care Team Providers Care Pharmacist Intern Name Role Phone Maryan Moody MD Primary Care Provider [phone] Reason for Visit * Auth/Cert (Routine) Specialty Diagnoses / Procedures Referred By [facility]ett[facility]um[facility]z mendoza Referred To Contact Diagnoses Abnormal uterine bleeding (AUB) Obesity (BMI 30-39.9) Sterilization Procedures ID HYSTEROSCOPY BX ENDOMETRIUM&/POLYPC W/WO D&C ID LAPAROSCOPY W/RMVL ADNEXAL STRUCTURES HYSTEROSCOPY, DILATION AND CURETTAGE Laparoscopic bilateral salpingectomy Referral ID Status Reason Start Date Expiration Date Visits Re quested Visits Authorized [id number] 1 1 Encounter Details Date Type Department Care Team (Late st Contact Info) Description 01/03/2024 10:50 EST - 01/03/2024 13:25 EST Surgery [facility] OR [address] [place], [place] [id number] Desirae Wu MD [address] [facility], [facility], [address] [place] [address] HYSTEROSCOPY, DILATION AND CURETTAGE [70600 (CPT??)] Surgery Details Date/Time Status Location OR Service Patient Class Case Cl ass Case Type Trauma Case? 01/03/24 1050 Posted [facility] OR [facility] Out[facility] Surgery H - Elective Panel 1 Procedure LRB Anes Op Region Wound Class Comments HYSTEROSCOPY, DILATION AND CURETTAGE N/A General Vagina Class II/ Clean Contaminated Laparoscopic bilateral salpingectomy Bilateral General Abdomen Class I/ Clean Surgeon Surgeon Role Service Panel Haydee Amin MD Resident - Assisting Gynecology 1 Desirae Wu MD Primary Gynecology 1 documented in this encounter Social History Tobacco Use Types Packs/Day Years [...] Sign Reading Time Taken Comments Blood Pressure 147/65 01/03/2024 0921 EST Pulse - - Temperature 36.7 ??C (98.1 ??F) 01/03/2024 0921 EST Respiratory Rate 16 01/03/2024 0921 EST Oxygen Saturation 98% 01/03/2024 0921 EST Inhaled Oxygen Concentration - - Weight [...] 01/03/24 12:19 Obstetrics & Gynecology, PGY-3 Pager #[phone] * Desirae Wu MD - 01/03/2024 1114 [...] 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 As you know, Martha is a 43 y.o. who presents to discuss abnormal uterine bleeding and permanent sterilization. Plan is for hysteroscopy, D&C, diagnostic laparoscopy, bilateral salpingectomy for permanent sterilization. Below is from our initial conversation. Of note today Martha request that she not be sent home with any prescription pain medicines. She will take [id number] medications for pain relief. Martha states that [...] a stat for prolapsed cord at a [facility] in [facility]. 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 I spent a total of 20 minutes on the date of this encounter meeting with the patient and reviewing documentation/coordinating care as described in the above note. Desirae Wu MD, 12/17/2023 10:09 documented in this encounter OR Notes * OR Surgeon - Haydee Amin MD - 01/03/2024 4641 EST Name: Martha Sanchez : 1980 Date of Service: 01/03/2024 Surgeon: Desirae Wu MD Fermentologist: Haydee Amin MD, Fransisco Schroeder MD Procedure: [...] lip of the cervix grasped with the Dequanka tenaculum. Rodriguez catheter was placed. Attention was [...] was removed from the uterine cavity. A Catron curette was then introduced and a thorough [...] 01/03/24 13:39 Obstetrics & Gynecology, PGY-3 Pager #[phone] Associated attestation - Desirae Wu MD - 01/06/2024 1620 EST I was present and scrubbed throughout the procedure. Desirae Wu MD, 01/06/2024 16:20 documented in this encounter Plan of Treatment Upcoming Encounters Date Type Department Care Team (Late st Contact Info) Description 09/07/2024 15:45 EDT Office Visit [facility] [address] [place] [address] Alvino Schmid MD [address] [place] [address]- [address] [place] [id number] Scheduled Referrals Name Type Priority Associated Diagnoses [...] explore management options, if applicable. 01/08/2024 15:44 [facility] Final Diagnosis A. 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 - Paratubal cyst. B. ENDOMETRIUM, CURETTAGE: - Inactive endometrium with tubal metaplasia. 01/08/2024 15:44 [facility] Attestation By the signature below, the attending physician certifies that they have 1) personally conducted a gross and/or microscopic examination of the described specimen(s), and/or personally interpreted the results of laboratory testing of the described specimen(s), and 2) personally rendered or confirmed the above diagnosis. 01/08/2024 15:44 [facility] at 1544 Clinical History Abnormal uterine bleeding (AUB), obesity (BMI 30-39.9), sterilization 01/08/2024 15:44 [facility] Gross Description A. Received in normal saline labelled with proper patient identification (initials R, A) and bilateral fallopian tubes are two unoriented fimbriated fallopian tubes (4.0 cm in length by 0.5 cm in diameter and 4.2 cm in length by 0.5 cm in diameter). Each tube has smooth, carrillo-colon serosa. Sectioning reveals patent lumens. Penal Officer sections to include the bisected fimbria are submitted in A1 (shorter tube) and A2 (longer tube). B. Received in normal saline labelled with proper patient identification (initials R, A) and endometrial curettings is a 1.5 x 0.5 x 0.4 cm aggregate of red-brown to colon tissue. The specimen is entirely submitted in B1. OSVALDO WATSON(ASCP) 01/06/2024 8:46 01/08/2024 15:44 EST [facility] Performing Lab [facility] 01/08/2024 15:44 EST [facility] Scanned Images 01/08/2024 15:44 EST [facility] Tissue BOTH FALLOPIAN TUBES / Unknown 01/03/2024 13:26 EST 01/03/2024 17:02 EST Tissue specimen (specimen) ENDOMETRIAL STRUCTURE / Unknown 01/03/2024 13:41 EST 01/03/2024 17:02 EST Desirae Wu MD PATHOLOGY ORDERABLES Performing Organization Address [facility] Co de Phone Number [facility] [address] [place] [address] * TEST, URINE (01/03/2024 9:25 EST) Test, Urine Negative Negative 01/03/2024 9:42 EST [facility] Comment:False negative resul ts may occur in women who are beyond 5-8 weeks gestation. Diagnosis of should be based on a correlation of test results with typical clinical signs and symptoms. Urine URINE / Unknown Urine Collect / Unknown 01/03/2024 9:25 EST 01/03/2024 9:30 EST Anshul Leung MD URINALYSIS ORDERABLE S Performing Organization Address [facility] Co de Phone Number [facility] [address] [place] [address] documented in this encounter Visit Diagnoses Diagnosis Abnormal uterine bleeding (AUB)- Primary Obesity (BMI 30-39.9) Obesity, unspecified Sterilization Abnormal uterine bleeding (AUB) Obesity (BMI 30-39.9) [...] (PF) (MARCAINE) 0.25 % (2.5 mg/mL) injection PRN, Starting on Sat01/03/24 at 1308, Until Sat01/03/24 at 1400, Routine, Intraprocedure Given 01/03/2024 13:08 EST 6 mL Left Arm chlorhexidine gluconate 2 % cloth 1 Each [...] (only) Rate Documented 01/03/2024 14:04 EST 75 mL/hr naloxone (NARCAN) injection 0.2 mg 0.2 mg, intravenous, PRN, Starting on Sat01/03/24 at 1354, Until Sat01/03/24 at 1736, Opioid Reversal, Routine, Recovery (only) ondansetron (PF) (ZOFRAN) injection 4 mg 4 mg, intravenous, PRN, 1 dose, Starting on Sat01/03/24 at 1354, Until Sat01/03/24 at 1736, Nausea, Vomiting, Routine, Recovery (only) sodium chloride 0.9 % irrigation PRN, Starting on Sat01/03/24 at 1346, Until Sat01/03/24 at 1400, Routine, Intraprocedure Given 01/03/2024 13:46 EST 1,000 mL documented in this encounter Active and Recently [...] 1404 (Rate Documente d - Provider: Faisal Keen RN) PRN Medication Order 01/01/2024 01/02/2024 01/03/2024 atropine [...] 0.1 mg/mL syringe 0.5 mg 1 024 chlorhexidine gluconate 2 % cloth 1 Each 1 01/03/2024 diphenhydrAMINE (BENADRYL) i njection 12.5 mg 1 01/03/2024 gabapentin (NEURONTIN) capsule 600 mg 1 01/2024 lidocaine (PF) 10 mg/mL (1 % ) injection 2 mg 1 01/03/2024 naloxone (NARCAN) injection 0.2 mg 1 2023 ondansetron (PF) (ZOFRAN) injection 4 mg 1 01/03/2024 Diet Count Last Ordered Date First Orde red Date DISCHARGE DIET 1 01/03/2024 Nursing Count Last Ordered Date First Orde red Date ACTIVITY INSTRUCTIONS 1 01/03/2024 WOUND CARE INSTRUCTIONS 1 01/03/2024 Discharge Count Last Ordered Date First Orde red Date DISCHARGE PATIENT 1 01/03/2024 documented in this encounter Care Teams Pharmacist Intern Relationship Specialty Start Date End Date Maryan Moody MD [address] [place] [phone] PCP - General 09/13/23 documented as of this encounter
--- OUTSIDE RECORDS SUMMARY | 2024-08-10 18:33 | XMS_ITS | Encounter Summary ---
Author Organization [facility] Address [address] [place] [address] Care Team Providers Care Signal Processing Engineer Name Role Phone Maryan Moody MD Primary Care Provider [phone] Reason for Referral * Cardiology (Routine/Next Available) - Authorization Not Required Specialty Diagnoses / Procedures Referred By Contac t Referred To Contact Diagnoses Nonrheumatic aortic (valve) insufficiency Procedures HOLTER MONITOR - 48 Maryan Moody MD [address] [place] [address] [facility] Referral ID Status Reason Start Date Expiration Date Visits Requested Visits Authorized [id number] Authorization Not Required 05/27/2024 1 1 Reason for Visit * Cardiology (Routine/Next Available) - Authorization Not Required Specialty Diagnoses / Procedures Referred By Contac t Referred To Contact Diagnoses Nonrheumatic aortic (valve) insufficiency Procedures HOLTER MONITOR - 48 Maryan Moody MD [address] [place] [address] [facility] Referral ID Status Reason Start Date Expiration Date Visits Requested Visits Authorized [id number] Authorization Not Required 05/27/2024 1 1 Encounter Details Date Type Department Care Team (Latest Contact Info) Description 06/02/2024 14:05 EDT - 06/02/2024 23:59 EDT Hospital Encounter [facility] Non-Invasive Cardiology [address] [place] [address] Nonrheumatic aortic (valve) insufficiency Discharge Disposition: Home [...] Info) Description 09/07/2024 15:45 EDT Office Visit [facility] Cardiology Clinic [address] [place], [place] [id number] Alvino Schmid MD [address] [facility] [address] [place] [address] documented as of this encounter Procedures Procedure Name Priority Date/Time Associated Diagnosis Comments HOLTER MONITOR - 48 Routine 06/02/2024 14:43 EDT Nonrheumatic aortic (valve) insufficiency documented in this encounter Results * HOLTER MONITOR-48: PLACED [...] Maryan Moody MD CARDIAC SERVICES ORD ERABLES documented in this encounter Visit Diagnoses Diagnosis Nonrheumatic aortic (valve) insufficiency documented in this encounter Care Teams Signal Processing Engineer Relationship Specialty Start Date End Date Maryan Moody MD [address] [facility] [place] [phone] PCP - General 09/13/23 documented as of this encounter
--- OUTSIDE RECORDS SUMMARY | 2024-08-10 18:33 | XMS_ITS | Encounter Summary ---
Author Organization [facility] Address [address] [place] [address] Care Team Providers Care Water Inspector Name Role Phone Scottiemellissacorby Emily AKBAR Primary Care Provider Maryan Moody MD Primary Care Provider Encounter Details Date Type Department Care Team (Late st Contact Info) Description 01/12/2022 Lab Requisition [facility] Pathology & Laboratory Medicine - [facility] [address] [place] [address] Kierra Cunningham, SWATCH CHECKER [address] [place] [address] Encounter for general adult medical examination without abnormal findings; Encounter for screening for malignant neoplasm of cervix Social History Tobacco Use Types Packs/Day Years [...] Info) Description 09/07/2024 15:45 EDT Office Visit [facility] Cardiology Clinic [address] [place] [address] Alvino Schmid MD [address] [facility] [address] [place] [address] documented as of this encounter Procedures Procedure Name Priority Date/Time Associated Diagnosis Comments PAP TEST Today 01/10/2022 11:45 EST Encounter for general adult medical examination without abnormal findings Encounter for screening for malignant neoplasm of cervix HPV DNA DETECTION WITH GENOTYPING, PCR Today 01/10/2022 11:45 EST Encounter for general adult medical examination without abnormal findings Encounter for screening for malignant neoplasm of cervix documented in this encounter Results * HUMAN PAPILLOMAVIRUS (HPV) DETECTION-HIGH RISK TYPES (01/10/2022 11:45 EST) HPV other High Risk types, PCR Negative Negative 01/23/2022 15:10 EST [facility] Comment:No E6 or E7 mRNA is detected from HPV types 16,18,31,33,35,39,45,51,52,56,58,59,66, and 68 by legal transcriptionist mediated amplification. Papanicolaou smear specimen (specimen) CERVIX UTERI STRUCTURE / Unknown 01/10/2022 11:45 EST 01/22/2022 16:27 EST Kierra Cunningham SWATCH CHECKER MICROBIOLOGY - G ENERAL ORDERABLES [facility] [address] [place] [address] * PAP TEST (01/10/2022 11:45 EST) Specimens A. Cervix and/or Endocervix , ThinPrep Imaging System with Manual Evaluation 01/23/2022 15:10 [facility] Specimen Adequacy Satisfactory for Evaluation - transformation zone component present 01/23/2022 15:10 [facility] General Categorization Negative for intraepithelial lesion or malignancy 01/23/2022 15:10 [facility] Attestation . 01/23/2022 15:10 [facility] at 1510 Clinical History SEE BELOW 01/23/20 15:10 [facility] HPV The result for the Human Papillomavirus (HPV) Detection-High Risk Types is Negative. No E6 or E7 mRNA is detected from HPV types 16,18,31,33,35,39 ,45,51,52,56,58,5 9,66, and 68 by legal transcriptionist mediated amplification.Mini ting was performed on specimen [id number] and was resulted on 01/23/2022 1451 EST by THEODORE, LAB INSTRUMENT RESULTS IN 01/23/2022 15:10 [facility] Performing Lab [facility] 01/23/2022 15:10 [facility] Scanned Images 01/23/2022 15:10 [facility] Papanicolaou smear specimen (specimen) CERVIX UTERI STRUCTURE / Unknown 01/10/2022 11:45 EST 01/12/2022 13:13 EST Kierra Cunningham SWATCH CHECKER PATHOLOGY ORDERA BLES [facility] [address] [place] [address] documented in this encounter Visit Diagnoses Diagnosis Encounter for general adult medical examination without abnormal findings Unspecified general medical examination Encounter for screening for malignant neoplasm of cervix Screening for malignant neoplasm of the cervix documented in this encounter Care Teams Water Inspector Relationship Specialty Start Date End Date Emily Reyes FNP PCP - General 02/10/21 09/12/23 Maryan Moody MD [address] [place] [address] PCP - General 09/13/23 documented as of this encounter
--- OUTSIDE RECORDS SUMMARY | 2024-08-10 18:33 | XMS_ITS | Encounter Summary ---
Author Organization [facility] Address [address] [place] [address] Care Team Providers Care Spool Worker Name Role Phone Maryan Moody MD Primary Care Provider [phone] Encounter Details Date Type Department Care Team (Latest Contact Info) Description 06/09/2024 Specialty Pharmacy [facility] [address] [place], [place] [address] Melissa Wright RPH Set up initial fill for Addiction Medicine, Patient Education for Addiction Medicine, Prospective Review for Addiction Medicine, Started Clinical Follow-up (2x annually) for Addiction Medicine Social History Tobacco Use Types Packs/Day Years [...] as of this encounter Progress Notes * Claudia Bentley - 06/09/2024 1237 EDT Prescription Receipt by [facility] Date Received: 06/10/24 Medication: Sublocade 300mg Provider: Maryan Moody MD Provider Phone number: [phone] [facility]: Addiction Medicine Comments: $3 ds PA Status: Approved Prescription copy available in scans: YES Relevant clinical documents in scans (if applicable): YES Routed to appropriate Pharmacist: YES [facility] Special[facility] Pharm[facility]: [phone] * Melissa Wright [facility] - 06/09/2024 1237 EDT Martha Etienne Laura is a 43 y.o. 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 clinical review of initial prescription for Buprenorphine ER injection Treatment information: Prescriber: Maryan Moody Prescriber Contact Info: [facility]; contact Rhea: [phone] Clinic note in Epic scans: No Sublingual Buprenorphine Naive: No Transmucosal Buprenorphine Dose: 12 mg/day Buprenorphine ER Formulation: Sublocade Initial Dose: 300 mg subcutaneous monthly REMS requirements met: Yes Naloxone prescribed: N/A Treatment goals: Engage in OUD treatment, reduce cravings, avoid withdrawal symptoms Baseline labs: Not available - outside provider, outside lab Current medications: Outpatient Encounter Medications as of 06/09/2024 Medication Sig buprenorphine 300 mg/1.5 mL solution, extended rel syringe Inject 1.5 mL into the skin every 28 days. Daily Max: 300 mg [DISCONTINUED] buprenorphine HCl/naloxone HCl (SUBOXONE SL) Place 10 mg under the tongue daily. gabapentin (NEURONTIN) 300 mg capsule Take 1 Capsule by mouth 2 times daily. [DISCONTINUED] levothyroxine (SYNTHROID) 50 mcg tablet Take 88 mcg by mouth daily. levothyroxine (SYNTHROID) 88 mcg tablet Take 1 Tablet by mouth daily. meloxicam (MOBIC) 15 mg tablet TAKE 1 TABLET BY MOUTH EVERY DAY. DO NOT TAKE OTHER NSAIDS WITH THISMED olmesartan (BENICAR) 40 mg tablet Take 1 Tablet by mouth daily. omeprazole (PRILOSEC) 20 mg capsule Take 1 Capsule by mouth daily. ondansetron (ZOFRAN-ODT) 4 mg disintegrating tablet Take 1 Tablet by mouth every 8 hours as needed. ZOLMitriptan (ZOMIG-ZMT) 5 mg disintegrating tablet Take 1 Tablet by mouth as needed. No facility-administered encounter medications on file as of 06/09/2024. Allergies: reviewed Drug Interactions and Management Plan: Medication list source: Epic chart review, Surescripts information, and [facility] with current medication list checked Drug-drug interactions identified: No DDIs requiring intervention Comorbidities: reviewed Coinfection/Vaccination Assessment: Vaccine Date Result HCV 12/09/23 Negative HBV 12/09/23 HBsAg (-) HIV 12/09/23 Negative Melissa Wright PharmD (she/her) Railcar Switcher Pharmacist [facility] Special[facility] Pharm[facility] 06/11/2024 * Raven Max - 06/09/2024 1237 EDT Prescription Receipt by [facility] Date Received: 06/29/2024 Medication: Sublocade 100 mg Provider: Maryan Moody Provider Phone number: [phone] [facility]: addiction services Comments: script received, uploaded to scans and processes through insurance. PA Status: PA not required Prescription copy available in scans: YES Relevant clinical documents in scans (if applicable): YES Routed to appropriate Pharmacist: YES [facility] Specialty Pharmacy: [phone] documented in this encounter Plan of Treatment Upcoming Encounters Date Type Department Care Team (Late st Contact Info) Description 09/07/2024 15:45 EDT Office Visit [facility] Cardiology Clinic [address] [place] [address] Alvino Schmid MD [address] [facility] [address] [place] [address] documented as of this encounter Visit Diagnoses Not on filedocumented in this encounter Discontinued Medications Medication Sig Discontinue Reason Start Date End Da te buprenorphine HCl/naloxone HCl (SUBOXONE SL) Place 10 mg under the tongue daily. Alternate therapy 06/11/2024 levothyroxine (SYNTHROID) 50 mcg tablet Take 88 mcg by mouth daily. Dose adjustment 01/28/2019 06/11/2024 buprenorphine 300 mg/1.5 mL solution, extended rel syringe Inject 1.5 mL into the skin every 28 days. Daily Max: 300 mg Dose adjustment 06/29/2024 documented as of this encounter Historical Medications * This list may reflect changes made after this encounter. Medication Sig Dispensed Refills Start Date End Date buprenorphine 100 mg/0.5 mL solution, extended rel syringe Inject 0.5 mL into the skin every 28 days. Daily Max: 100 mg levothyroxine (SYNTHROID) 88 mcg tablet Take 1 Tablet by mouth daily. 03/20/2024 ZOLMitriptan (ZOMIG-ZMT) 5 mg disintegrating tablet Take 1 Tablet by mouth as needed. 06/01/2024 ondansetron (ZOFRAN-ODT) 4 mg disintegrating tablet Take 1 Tablet by mouth every 8 hours as needed. 04/29/2024 omeprazole (PRILOSEC) 20 mg capsule Take 1 Capsule by mouth daily. 04/28/2024 buprenorphine 300 mg/1.5 mL solution, extended rel syringe Inject 1.5 mL into the skin every 28 days. Daily Max: 300 mg 06/29/2024 added in this encounter Care Teams Spool Worker Relationship Specialty Start Date End Date Maryan Moody MD [address] [place] [address] PCP - General 09/13/23 documented as of this encounter
--- OUTSIDE RECORDS SUMMARY | 2024-08-10 18:33 | XMS_ITS | Encounter Summary ---
Author Organization [facility] Address [address] [place] [address] Care Team Providers Care Publicity Consultant Name Role Phone Maryan Moody MD Primary Care Provider [phone] Reason for Visit * Auth/Cert (Routine) Specialty Diagnoses / Procedures [facility] Referred To Contact Diagnoses Abnormal uterine bleeding (AUB) Obesity (BMI 30-39.9) Sterilization Procedures WI HYSTEROSCOPY BX ENDOMETRIUM&/POLYPC W/WO D&C WI LAPAROSCOPY W/RMVL ADNEXAL STRUCTURES HYSTEROSCOPY, DILATION AND CURETTAGE Laparoscopic bilateral salpingectomy Referral ID Status Reason Start Date Expiration Date Visits Re quested Visits Authorized [id number] 1 1 Encounter Details Date Type Department Care Team (Late st Contact Info) Description 01/03/2024 12:05 EST Anesthesia Event [facility] OR [address] [place], [place] [address] Jericho Sinclair MD [address] [facility], [address] 2 [place] [address] Anesthesia Record Procedure Summary Procedure Name Responsible Anesthesiologist Anesthesia Start Time Anesthesia Stop Time HYSTEROSCOPY, DILATION AND CURETTAGE (Vagina ) Jericho Sinclair MD 01/03/24 1205 01/03/24 1406 Events Date Time Event Comment 01/03/2024 1205 An Start The patient was re-evaluated immediately before moderate or deep sedation use, before anesthesia induction, or before the anesthesia procedure. 1205 An Start Data 1218 An Induction The patient was reevaluated immediately before moderate or deep sedation use and before anesthesia induction. 1220 An Intubation 1235 IV Placed 1237 Anesthesia Ready 1322 Kraig Pneumoperitoneu m released. +valsalva. Closing port sites while doing hysteroscopy. 1348 An Extubation 1351 Kraig Pt sleepy. Open s eyes to name. Airway patent. PACU hold. 1359 an stop data 1406 Handoff to RN I completed my handoff to the receiving nurse during which we: 1. Identified the patient 2. Identified the responsible provider 3. Reviewed the pertinent medical history 4. Discussed the surgical course 5. Reviewed intra-op anesthesia management and issues during anesthesia 6. Set expectations for post-procedure period 7. Allowed opportunity for questions and acknowledgement of understanding. 1406 An Stop Meds Name Total dexaMETHasone (DECADRON) injection 4 mg/ mL (for IV doses up to 10mg) 8 mg HYDROmorphone vial 2 mg/mL 1.6 mg ketAMINE 5 mL prefilled syringe 40 mg midazolam (versed) 1 mg/mL 2 mL vial 2 m g ondansetron (PF) (ZOFRAN) injection 4 mg lidocaine 2% (PF) injection glass vial 6 0 mg propOFol (DIPRIVAN) injection 346,556 mc g rocuronium 10 mg/mL vial 50 mg sugammadex 100 mg/mL 2 mL vial 200 mg esmolol pre-filled syringe 10 mg/mL 30 m g dexmedetomidine injection - vial 20 mcg lidocaine laryngotracheal 4% (LTA) 3 mL ketOROLAC injection 30 mg lactated ringers (LR) infusion 1,000 mL * Agents Name Insp Sevoflurane Exp Sevoflurane O2 N2O Air Aux O2 flow * Blood No blood administrations on file. Lines, Drains, and Airways Type Details Placement Removal Wound 01/03/24; Incision; Lower; Abdomen; laparoscopic incisions; N; Full thickness 01/03/24 0000 by Sujatha Lockhart RN Peripheral IV 01/03/24; 0936; 20; 1.25; B Carrion Introcan; Posterior, Right; Hand; Inserted by RN, Documenting on behalf of someone else (enter name) (Janee Edgar RN); 1; None; 2% Chlorhexidine with IPA; 01/03/24; 1520; Discharged; No complications, Catheter intact, Dressing applied 01/03/24 0936 by Shweta Molina RN 01/03/24 1520 by Faisal Keen, JOSE MANUEL Non-Surgical Airway 01/03/24; 1255 (crea geoff via procedure documentation); 01/03/24; 1348 01/03/24 1255 by Khushboo Gan CRNA 01/03/24 1348 by Khushboo Gan CRNA Peripheral IV 01/03/24; 1256 (crea geoff via procedure documentation); hand; 01/03/24; 1520; Discharged; No complications, Catheter intact, Dressing applied 01/03/24 1256 by Khushboo Gan CRNA 01/03/24 1520 by Faisal Keen, JOSE MANUEL documented in this encounter Social History Tobacco [...] Yes 03/20/2019 documented as of this encounter OR Notes * Anesthesia Postprocedure Evaluation - Khushboo Gan CRNA - 01/03/2024 1532 EST Patient: Martha Sanchez Vital signs were reviewed with the recovery nurse. [facility] Vit[facility] Value Taken Time BP 138/72 01/03/24 1500 Temp 36.3 ??C (97.3 ??F) 01/03/24 1404 Resp 12 01/03/24 1502 Pulse From Oximetry 58 BPM 01/03/24 1502 SpO2 96 % 01/03/24 1502 Heart Rate 58 BPM 01/03/24 1502 Last Pain Score - Numeric Pain Level (Scale 1-10): 5 Type of Anesthesia - general Anesthesia Post Evaluation Post-procedure vitals reviewed and are stable. Level of consciousness: awake Temperature status: normothermia Respiratory status: airway patent and face mask Cardiovascular status: acceptable Hydration status: adequate Nausea/Vomiting: none Pain management: adequate (addressing pain bedside) Post-Op Assessment: patient tolerated procedure well with no complications Patient participation: able to participate Disposition: outpatient/home Anesthesia Complications: No apparent anesthesia complications * Anesthesia Procedure Notes - Khushboo Gan CRNA - 01/03/2024 1256 EST Associated Order(s): Peripheral IV Placement Peripheral IV Placement Date/Time: 01/03/2024 12:56 Placement Laterality: right Location: hand Local anesthetic: none Site prep: alcohol Technique: anatomical landmarks Attempts: 3 * Anesthesia Procedure Notes - Khushboo Gan CRNA - 01/03/2024 1253 EST Associated Order(s): Airway Airway Date/Time: 01/03/2024 12:20 Urgency: elective General Information and Staff Patient location during procedure: OR Performed: resident/DAIRY CONSULTANT/AA Performed by: Khushboo Gan CRNA Authorized by: Jericho Sinclair MD Indications and Patient Condition Indications for airway management: anesthesia Sedation level: GA Preoxygenated: yes Patient position: sniffing Ventilation assessment: 1 - Easy Final Airway Details Final airway type: endotracheal airway Successful airway: ETT Cuffed: yes Successful intubation technique: video laryngoscopy Diaz Facilitating devices/methods: intubating stylet Endotracheal tube insertion site: oral Blade size: #4 ETT size (mm): 7.0 Cormack-Lehane Classification: grade I - full view of glottis Placement verified by: capnometry and palpation of cuff Measured from: teeth ETT to teeth (cm): 20 Number of attempts at approach: 1 * Anesthesia Preprocedure Evaluation - Jericho Sinclair MD - 01/03/2024 0922 EST Anesthesia Preprocedure Evaluation Martha Sanchez is a 43 y.o. female with Asthma and recent COVID pneumonia 2 weeks ago, opioid tolerance on suboxone maintenance, GERD, heart murmur, hypothyroidism and dentures who is presenting forhysteroscopy, D&C, diagnostic laparoscopy, bilateral salpingectomy for permanent sterilization. Anesthesia history reviewed. No previous adverse reactions. Functional status: able to perform >4 METS. Appropriately NPO. Of note, the patient did request at her pre-op visit with Dr. Wu that she not be sent home with any prescription pain medicines. Last 5 Weights Filed This Admission 01/03/24 09 Weight: 70.8 kg (156 lb 1.4 oz) body mass index is 29.49 kg/m??. Allergies Allergen Reactions Penicillins Vioxx Relevant Problems No relevant active problems PMH: Past Medical History: No date: Arthritis No date: Asthma Comment: 12/30/2023 exacerbated with URI's No date: Depression No date: Does not exercise Comment: 12/30/2022 no formal routine, pt can tolerate 2 flights of stairs No date: Essential hypertension Comment: Noted 12/23/2023: tx w/ meds No date: GERD (gastroesophageal reflux disease) Comment: 12/30/2023 per pt report, wakes pt at night approx 1X per week No date: Heart murmur Comment: 12/30/2023 - per pt diagnosed a few years ago, pt thinks she had cardiac workup but was not sure No date: History of COVID-19 Comment: covid + ~12/16/2023 - pt did not take paxlovid No date: History of epidural anesthesia No date: History of general anesthesia No date: Hypothyroidism No date: Opioid use disorder Comment: On Suboxone No date: Thyroid disease No date: Wears dentures Comment: 12/30/2023 uppers & lowers Social history: Social History Tobacco Use Smoking Status Every Day Current packs/day: 1.00 Types: Cigarettes Smokeless Tobacco Never Social History Substance and Sexual Activity Drug Use Yes Types: Marijuana Comment: daily Social History Substance and Sexual Activity Alcohol Use No Review of Systems Constitutional: Negative for chills and fever. Respiratory: Positive for cough. Negative for shortness of breath and wheezing. States chronic smokers cough Cardiovascular: Negative for chest pain. Gastrointestinal: Negative for nausea and vomiting. MEDICATIONS: Current Facility-Administered Medications Medication Route Frequency acetaminophen (TYLENOL) tablet 1,000 mg oral PRE-OP ONCE chlorhexidine gluconate 2 % cloth 1 Each topical DAILY chlorhexidine gluconate 2 % cloth 1 Each topical PRN gabapentin (NEURONTIN) capsule 600 mg oral PRE-OP ONCE lactated ringers (LR) infusion intravenous CONTINUOUS lidocaine (PF) 10 mg/mL (1 %) injection 2 mg intradermal PRN Physical Exam Airway Mallampati: II TM distance: >3 FB Neck ROM: full Cardiovascular Rhythm: regular Rate: normal (+) murmur Dental Comments: Edentulous upper and lower Pulmonary Breath sounds clear to auscultation (+) decreased breath sounds Abdominal Anesthesia Plan ASA 3 Anesthesia Type - general Anesthesia plan and risks discussed. Informed consent obtained from patient. Specific risks discussed were dental injury, other and nausea (aspiration, allergic reaction). The preoperative history and physical which was performed within 30 days of this procedure, has been reviewed and the clinically appropriate elements of the physical examination have been repeated. There are no changes to the documented history and physical or, if so, such changes are documented inthis note PAT Note PAT Note by Nicki Peterson APRN CNM at 12/30/2023 12:40 Anesthesia Review Needed Date Review Started: 12/30/2023 [place] ([facility]): main DOS: 01/03/2024 Surgeon: Bryce Procedure: HYSTEROSCOPY, [...] notes or diagnostics from cards. Please investigate. 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 Pt has had long-term treatment of HTN.Looking at Consult from Dr [...] Mg Sl Film 28.00 28 Sa Mor [id number] Wal (5630) 0 12.00 mg Medicaid [place] 12/10/2023 12/09/2023 12/10/2023 2 Suboxone 4 Mg-1 Mg Sl Film 4.00 4 Prescriber is; Dr Juaquin Moody [phone] Nicki Durand Kristen BRYANT, MSN12/30/2023 13:47 Call to pt to inquire about above.LM to call me back. Nicki Durand Kristen BRYANT,MSN 12/31/2023 8:58 Reached pt and she does [...] will need to be reassessed DOS. Nicki Durand Kristen BRYANT, MSN 12/31/2023 13:24 documented in this encounter Plan of Treatment Upcoming Encounters Date Type Department Care Team (Late st Contact Info) Description 09/07/2024 15:45 EDT Office Visit [facility] [address] [place] [address] Alvino Schmid MD [address] [place] [address] [address] documented as of this encounter Procedures Procedure Name Priority Date/Time Associated Diagnosis Comments ANESTHESIA PERIPHERAL IV PLACEMENT Routine 01/03/2024 12:56 EST ANESTHESIA INTUBATION Routine 01/03/2024 12:20 EST documented in this encounter Results * ANESTHESIA PERIPHERAL IV PLACEMENT (01/03/2024 12:56 EST) Narrative Khushboo Gan CRNA - 01/03/2024 12:56 EST Khushboo Gan CRNA ? 01/03/2024 12:56 Peripheral IV Placement Date/Time: 01/03/2024 12:56 Placement Laterality: right Location: hand Local anesthetic: none Site prep: alcohol Technique: anatomical landmarks Attempts: 3 Jericho Sinclair MD ANESTHESIA ORDERA BLES * WI AN ELECTIVE ENDOTRACHEAL AIRWAY (01/03/2024 12:20 EST) Narrative Khushboo Gan CRNA - 01/03/2024 12:20 EST Khushboo Gan CRNA ? 01/03/2024 12:55 Airway Date/Time: 01/03/2024 12:20 Urgency: elective General Information and Staff Patient location during procedure: OR Performed: resident/DAIRY CONSULTANT/AA Performed by: Khushboo Gan CRNA Authorized by: Jericho Sinclair MD ?? Indications and Patient Condition Indications for airway management: anesthesia Sedation level: GA Preoxygenated: yes Patient position: sniffing Ventilation assessment: 1 - Easy Final Airway Details Final airway type: endotracheal airway Successful airway: ETT Cuffed: yes Successful intubation technique: video laryngoscopy Diaz Facilitating devices/methods: intubating stylet Endotracheal tube insertion site: oral Blade size: #4 ETT size (mm): 7.0 Cormack-Lehane Classification: grade I - full view of glottis Placement verified by: capnometry and palpation of cuff Measured from: teeth ETT to teeth (cm): 20 Number of attempts at approach: 1 Jericho Sinclair MD ANESTHESIA ORDERA BLES documented in this encounter Visit Diagnoses Not on filedocumented in this encounter Administered Medications Inactive Administered Medications - up to 3 most recent administrations Medication Order MAR Action Action Date Dose Rate Site dexAMETHasone (DECADRON) injection intravenous, PRN, Starting on Sat01/03/24 at 1317, Until Sat01/03/24 at 1532, Routine, Anesthesia Intraprocedure Given 01/03/2024 13:17 EST 8 mg dexmedeTOMIDine (PRECEDEX) injection intravenous, PRN, Starting on Sat01/03/24 at 1209, Until Sat01/03/24 at 1532, Routine, Anesthesia Intraprocedure Given 01/03/2024 12:30 EST 12 mcg Given 01/03/2024 12:13 EST 8 mcg esmolol (BREVIBLOC) injection intravenous, PRN, Starting on Sat01/03/24 at 1218, Until Sat01/03/24 at 1532, Routine, Anesthesia Intraprocedure Given 01/03/2024 12:21 EST 30 mg HYDROmorphone (DILAUDUD) 2 mg/mL injection intravenous, PRN, Starting on Sat01/03/24 at 1307, Until Sat01/03/24 at 1532, Routine, Anesthesia Intraprocedure Given 01/03/2024 14:05 EST 0.6 mg Given 01/03/2024 13:36 EST 0.4 mg Given 01/03/2024 13:07 EST 0.6 mg ketAMINE in NaCl, iso-osmotic (KETALAR) 50 mg/5 mL (10 mg/mL) IV injection intravenous, PRN, Starting on Sat01/03/24 at 1218, Until Sat01/03/24 at 1532, Routine, Anesthesia Intraprocedure Given 01/03/2024 13:17 EST 30 mg Given 01/03/2024 12:18 EST 10 mg ketOROLAC (TORADOL) injection intravenous, PRN, Starting on Sat01/03/24 at 1327, Until Sat01/03/24 at 1532, Routine, Anesthesia Intraprocedure Given 01/03/2024 13:27 EST 30 mg lactated ringers (LR) infusion at 25 mL/hr, intravenous, CONTINUOUS, Starting on Sat01/03/24 at 0930, Until Sat01/03/24 at 1736, Routine, Preprocedure Restarted 01/03/2024 12:59 EST Continued by Anesthesia 01/03/2024 12:05 EST 25 mL/hr New Bag 01/03/2024 9:40 EST 25 mL/hr lidocaine (PF) 20 mg/mL (2 %) injection intravenous, PRN, Starting on Sat01/03/24 at 1218, Until Sat01/03/24 at 1532, Routine, Anesthesia Intraprocedure Given 01/03/2024 12:18 EST 60 mg Lidocaine HCl 4 % solution intratracheal, PRN, Starting on Sat01/03/24 at 1220, Until Sat01/03/24 at 1532, Routine, Anesthesia Intraprocedure Given 01/03/2024 12:20 EST 3 mL midazolam (PF) (VERSED) injection intravenous, PRN, Starting on Sat01/03/24 at 1212, Until Sat01/03/24 at 1532, Routine, Anesthesia Intraprocedure Given 01/03/2024 12:12 EST 2 mg ondansetron (PF) (ZOFRAN) injection intravenous, PRN, Starting on Sat01/03/24 at 1324, Until Sat01/03/24 at 1532, Routine, Anesthesia Intraprocedure Given 01/03/2024 13:24 EST 4 mg propOFol (DIPRIVAN) injection intravenous, PRN, Starting on Sat01/03/24 at 1218, Until Sat01/03/24 at 1532, Routine, Anesthesia Intraprocedure New Bag 01/03/2024 12:35 EST 30 mcg/kg/min 12.744 mL/hr Given 01/03/2024 12:18 EST 200 mg rocuronium (ZEMURON) injection intravenous, PRN, Starting on Sat01/03/24 at 1218, Until Sat01/03/24 at 1532, Routine, Anesthesia Intraprocedure Given 01/03/2024 12:18 EST 50 mg sugammadex (BRIDION) injection intravenous, PRN, Starting on Sat01/03/24 at 1343, Until Sat01/03/24 at 1532, Routine, Anesthesia Intraprocedure Given 01/03/2024 13:43 EST 200 mg documented in this encounter Care Teams Publicity Consultant Relationship Specialty Start Date End Date Maryan Moody MD [address] [place] [address] PCP - General 09/13/23 documented as of this encounter
--- OUTSIDE RECORDS SUMMARY | 2024-08-10 18:33 | XMS_ITS | Encounter Summary ---
Author Organization [facility] Address [address] [place] [address] Care Team Providers Care Laborer Name Role Phone Maryan Moody MD Primary Care Provider [phone] Encounter Details Date Type Department Care Team (Late st Contact Info) Description 12/10/2023 Lab Requisition [facility] Pathology & Laboratory Medicine - [facility] [address] [place] [address] Outr Resulting Lab, Provider Social History Tobacco [...] Info) Description 09/07/2024 15:45 EDT Office Visit [facility] Cardiology Clinic [address] [place] [address] Alvino Schmid MD [address] [facility] [address] [place] [address] documented as of this encounter Procedures Procedure Name Priority Date/Time Associated Diagnosis Comments HEPATITIS C AB W REFLEX TO HCV RNA BY PCR Routine 12/09/2023 16:00 EST HEPATITIS B CORE ANTIBODY (TOTAL) Routine 12/09/2023 16:00 EST HEPATITIS B SURFACE ANTIGEN Routine 12/09/2023 16:00 EST documented in this encounter Results * HEPATITIS B CORE ANTIBODY (TOTAL) (12/09/2023 16:00 EST) Hepatitis B Core Ab, Total Negative Negative 12/10/2023 18:58 EST [facility] Blood VENOUS BLOOD / Unknown 12/09/2023 16:00 EST 12/10/2023 17:12 EST Provider Outr Resulting Lab CHEMISTRY & BLOOD GAS ORDERABLES [facility] [address] [place] [address] * HEPATITIS B SURFACE ANTIGEN (12/09/2023 16:00 EST) Hep B Surface Ag Negative Negative 12/10/2023 18:24 EST [facility] Blood VENOUS BLOOD / Unknown 12/09/2023 16:00 EST 12/10/2023 17:08 EST Provider Outr Resulting Lab CHEMISTRY & BLOOD GAS ORDERABLES Performing Organization Address City/[facility]/ZIP Co de Phone Number [facility] [address] [place] [address] * HEPATITIS C AB W REFLEX TO HCV RNA BY PCR (12/09/2023 16:00 EST) Hep C Antibody Negative Negative 12/10/2023 18:57 EST [facility] Blood VENOUS BLOOD / Unknown 12/09/2023 16:00 EST 12/10/2023 17:08 EST Provider Outr Resulting Lab CHEMISTRY & BLOOD GAS ORDERABLES Performing Organization Address [facility] Co de Phone Number [facility] [address] [place] [address] documented in this encounter Visit Diagnoses Not on filedocumented in this encounter Care Teams Laborer Relationship Specialty Start Date End Date Maryan Moody MD [address] [place] [id number] PCP - General 09/13/23 documented as of this encounter
--- OUTSIDE RECORDS SUMMARY | 2024-08-10 18:33 | XMS_ITS | Encounter Summary ---
Author Organization [facility] Address [address] [place] [address] Care Team Providers Care Emissions Testing Technician Name Role Phone Amy Emily AKBAR Primary Care Provider [phone] Maryan Moody MD Primary Care Provider [phone] Encounter Details Date Type Department Care Team (Late st Contact Info) Description 01/11/2022 Lab Requisition [facility] Pathology & Laboratory Medicine - [facility] [address] [place] [address] Outr Resulting Lab, Provider Social History Tobacco [...] Info) Description 09/07/2024 15:45 EDT Office Visit [facility] Cardiology Clinic [address] [place] [address] Alvino Schmid MD [address] [facility] [address] [place] [address] documented as of this encounter Procedures Procedure Name Priority Date/Time Associated Diagnosis Comments HIV 1/2 ANTIGEN AND ANTIBODY, 4TH GENERATION Routine 01/10/2022 11:55 EST documented in this encounter Results * HIV 1/2 ANTIGEN AND ANTIBODY, 4TH GENERATION (01/10/2022 11:55 EST) HIV 1 and 2 Antibody/p24 Antigen, 4th Generation Negative Negative 01/12/2022 9:48 EST [facility] Comment:If acute HIV-1 infec tion is suspected in a high risk patient, submit plasma specimen for HIV-1 RNA quantitation test. Blood VENOUS BLOOD / Unknown 01/10/2022 11:55 EST 01/11/2022 17:07 EST Narrative [facility] - 01/12/2022 9:48 EST Fourth Generation assay performed on the Siemens Centaur XPT. Provider Outr Resulting Lab IMMUNOLOGY A ND SEROLOGY ORDERABLES [facility] [address] [place] [address] documented in this encounter Visit Diagnoses Not on filedocumented in this encounter Care Teams Emissions Testing Technician Relationship Specialty Start Date End Date Emily Reyes FNP PCP - General 02/10/21 09/12/23 Maryan Moody MD [address] [place] [phone] PCP - General 09/13/23 documented as of this encounter
--- OUTSIDE RECORDS SUMMARY | 2024-08-10 18:33 | XMS_ITS | Encounter Summary ---
Author Organization [facility] Address [address] [place] [address] Care Team Providers Care Wool Hanker Name Role Phone Maryan Moody MD Primary Care Provider [phone] Encounter Details Date Type Department Care Team (Late st Contact Info) Description 12/10/2023 Lab Requisition [facility] Pathology & Laboratory Medicine - [facility] [address] [place] [address] Outr Resulting Lab, Provider Social History Tobacco [...] Info) Description 09/07/2024 15:45 EDT Office Visit [facility] Cardiology Clinic [address] [place], [place] [address] Alvino Schmid MD [address] [facility] [address] [place] [address] documented as of this encounter Procedures Procedure Name Priority Date/Time Associated Diagnosis Comments HIV 1/2 ANTIGEN AND ANTIBODY, 4TH GENERATION Routine 12/09/2023 16:00 EST documented in this encounter Results * HIV 1/2 ANTIGEN AND ANTIBODY, 4TH GENERATION (12/09/2023 16:00 EST) HIV 1 and 2 Antibody/p24 Antigen, 4th Generation Negative Negative 12/10/2023 18:53 EST [facility] Comment:If acute HIV-1 infec tion is suspected in a high risk patient, submit plasma specimen for HIV-1 RNA quantitation test. Blood VENOUS BLOOD / Unknown 12/09/2023 16:00 EST 12/10/2023 17:11 EST Narrative [facility] - 12/10/2023 18:53 EST Fourth Generation assay performed on the Siemens Centaur XPT. Provider Outr Resulting Lab IMMUNOLOGY A ND SEROLOGY ORDERABLES [facility] [address] [place] [address] documented in this encounter Visit Diagnoses Not on filedocumented in this encounter Care Teams Wool Hanker Relationship Specialty Start Date End Date Maryan Moody MD [address] [facility] [place] [address] PCP - General 09/13/23 documented as of this encounter
--- OUTSIDE RECORDS SUMMARY | 2024-08-10 18:33 | XMS_ITS | Encounter Summary ---
Author Organization [facility] Address [address] [place] [address] Care Team Providers Care Furniture Sales Consultant Name Role Phone Maryan Moody MD Primary Care Provider Reason for Visit * Reason Comments Advice Only * Referral (Routine) - Receiving Office to Obtain Authorization Specialty Diagnoses / Procedures Referred By Contac t Referred To Contact Obstetrics & Gynecology Diagnoses Abnormal uterine and vaginal bleeding, unspecified Kierra Cunningham, COMPUTER GAME TESTER [address] [place] [address] [place] [address] [address] [place] [id number] Referral ID Status Reason Start Date Expiration Date Visits Requested Visits Authorized [id number] Receiving Office to Obtain Authorization 1 1 Encounter Details Date Type Department Care Team (Late st Contact Info) Description 09/24/2023 11:15 EDT Telemedicine [facility] OBGYN Services - [address] [id number] Desirae Wu MD [address] [facility], [address] [place] [phone] Abnormal uterine bleeding (AUB) (Primary Dx); Obesity (BMI 30-39.9); Sterilization; Retained products of conception after delivery with complications Social History Tobacco Use Types Packs/Day Years [...] Progress Notes * Desirae Wu MD - 09/24/2023 1115 EDT CC: Abnormal uterine bleeding, desires permanent sterilization Martha Consult requested by: Kierra Cunningham APRN History of Present Illness: Thank you for sending Martha Wills for a DATABASES COMPUTER CONSULTANT consult. As you know, Martha is a 42 y.o. who presents to discuss abnormal uterine bleeding and permanent sterilization. Martha states that she has noted that [...] [facility]. Since that time she has had a [...] OB hx: -1-0-3 Full-term x2 then x1 DATABASES COMPUTER CONSULTANT hx: As above abnl paps No h/o STIs Past Medical History: Diagnosis Date ??? Arthritis ??? Asthma ??? Depression ??? Essential hypertension On the medication ??? Heart murmur ??? Opioid use disorder On Suboxone ??? Thyroid disease Past Surgical History: Procedure Laterality Date ??? ABDOMEN SURGERY Significant endometriosis noted per patient. At age 23 ??? SECTION 12/2022 Stat for prolapsed cord in the context of induction for hypertensive disorder ??? FRACTURE SURGERY Fam hx: no breast, ovarian, uterine, colon cancer in family History reviewed. No pertinent family history. Current Outpatient Medications on File Prior to Visit Medication Sig Dispense Refill ??? buprenorphine HCl/naloxone HCl (SUBOXONE SL) Place 10 mg under the tongue daily. ??? gabapentin (NEURONTIN) 300 mg capsule Take 300 mg by mouth 2 times daily. ??? levothyroxine (SYNTHROID) 50 mcg tablet Take 88 mcg by mouth daily. 0 No current facility-administered medications on file prior to visit. Allergies Allergen Reactions ??? Penicillins ??? Vioxx O: There were no vitals taken for this visit. GEN: NAD Video visit Assessment and Plan In summary, Martha Wills is a 42 y.o. with abnormal uterine bleeding and likely endometriosis, desiring permanent sterilization In terms of the abnormal uterine bleeding, [...] (2 to 5 days out of work, ibuprofen/Tylenol). Pt asked questions and questions were answered. A case request was submitted. My shot man will call the pt with a date for surgery and an appropriate pre-operative visit will be arranged. Consent will be signed at the pre-op visit. At this time I will have her come back for a preoperative visit. A case request has been placed. She will need to sign [place] Medicaid form for sterilization 30 days in advance of the surgery. Thank you for allowing me to participate [...] respective roles) participated in today's encounter: Martha Wills, patient Desirae Wu MD, provider The audio-video application used to conduct the visit was [employer]. I spent a total of 60 minutes with Martha Wills today and 45 minutes of that time was spent in counseling and coordination of care as described in the progress note. Desirae Wu MD, 09/24/2023 11:54 documented in this encounter Plan of Treatment Upcoming Encounters Date Type Department Care Team (Late st Contact Info) Description 09/07/2024 15:45 EDT Office Visit [facility] [address] [place] [address] Alvino Schmid MD [address] [place] [address] [place] [address] documented as of this encounter Visit Diagnoses Diagnosis Abnormal uterine bleeding (AUB)- Primary Obesity (BMI 30-39.9) Obesity, unspecified Sterilization Retained products of conception after delivery with complications Retained portions of placenta or membranes, without hemorrhage, delivered, with mention of complication documented in this encounter Discontinued Medications Medication Sig Discontinue Reason Start Date End Da te loratadine (CLARITIN) 10 mg tablet Take 10 mg by mouth daily. 09/24/2023 meloxicam (MOBIC) 15 mg tablet Take 15 mg by mouth daily. 09/24/2023 methocarbamol (ROBAXIN) 500 mg tablet Take 500 mg by mouth at bedtime. 09/24/2023 norgestimate-ethinyl estradiol (HERO) 0.25-35 mg-mcg per tablet Take 1 tablet by mouth daily. 09/24/2023 PNV Comb#[id number] 3 29-1-400 mg combo pack,tablet and cap,DR Take by mouth. RANITIDINE HCL ORAL Take 10 mg by mouth daily. 09/24/2023 amitriptyline (ELAVIL) 50 mg tablet Take 50 mg by mouth daily. 09/24/2023 lisinopril (PRINIVIL, ZESTRIL) 20 mg tablet Take 20 mg by mouth daily. 09/24/2023 documented as of this encounter Orders Case Request Count Last Ordered Date First Orde red Date CASE REQUEST OPERATING ROOM 1 09/24/2023 documented in this encounter Care Teams Furniture Sales Consultant Relationship Specialty Start Date End Date Maryan Moody MD [address] [place] [id number] PCP - General 09/13/23 documented as of this encounter
--- OUTSIDE RECORDS SUMMARY | 2024-08-10 18:34 | XMS_ITS | Encounter Summary ---
Author Organization [facility] Address [address] [place] [address] Care Team Providers Care Professor Of Biology Name Role Phone Raven Osei MD Primary Care Provider Reason for Visit * Reason Comments Back Pain * Consult (Routine) - Closed Specialty Diagnoses / Procedures Referred By [facility] Referred To Contact Pain Medicine Diagnoses Lumbago with sciatica, unspecified side Funmi Bautista, PA-C [address] [place] [address] [facility] [address] [address] Referral ID Status Reason Start Date Expiration Date Visits Re quested Visits Authorized [id number] Closed 1 1 Encounter Details Date Type Department Care Team (Latest Contact Info) Description 03/20/2019 13:30 EDT Office Visit [facility] Interventional Pain [address] [place] [address] Unknown, Provider, Johnathon Peraza MD [address] [place] [phone] DDD (degenerative disc disease), lumbosacral (Primary Dx); Radicular pain of both lower extremities; Hyperalgesia Social History Tobacco Use Types Packs/Day Years Used Date Smoking Tobacco: Every Day Cigarettes Smokeless Tobacco: Never Alcohol Use Standard Drinks/Week Comments No 0 (1 standard drink = 0.6 oz pur e alcohol) AUDIT-C Answer Date Recorded Frequency of Alcohol Consumption Never 03/20/2019 Average Number of Drinks Not on file 019 Frequency of Binge Drinking Not on file 03/02 Sex and Gender Information Value Date Recorded Sex Assigned at Not on file Gender Identity Female 04/18/2020 12:56 EDT Sexual Orientation Not on file documented as of this encounter Last Filed Vital Signs Vital Sign Reading Time Taken Comments Blood Pressure 137/63 03/20/2019 1321 EDT Pulse 91 03/20/2019 1321 EDT Temperature 37.1 ??C (98.8 ??F) 03/20/2019 1321 EDT Respiratory Rate - - Oxygen Saturation - - Inhaled Oxygen Concentration - - Weight - - Height - - Body Mass Index - - documented in this encounter Functional Status Functional [...] as of this encounter Progress Notes * Johnathon Peraza MD - 03/20/2019 1330 EDT [facility] Outpatient PAIN Consult Patient Name: Martha Wills : 1980 Date of Service: 03/20/2019 Referring Physician: Funmi Bautista Chief Complaint: Chief Complaint Patient presents with ??? Back Pain History of Present Illness/Pain complaint: Patient presents at the request of OSVALDO Arambula for evaluation and recommendations regarding treatment of their chronic pain syndrome. This is summarized below. Ms. Martha Wills is a 38-year-old female with a 20 year smoking history and a history of depression, and opioid use disorder on substance use disorder who complains of 4 months of worsening bilaterallow back pain with radiation to the right>left lower extremities. The patient describes the painas burning, sharp, and throbbing in character and it is 5/10 on average in intensity. The pain increases to 7/10 with activity. It is worse with walking, standing, driving and bending. Her pain is better with lying on her side and resting. Please see below for additional information regarding previously tired conservative therapies. The patient denies fever, chills, nausea, vomiting, headache, vision changes, focal weakness/sensory changes, and bowel/bladder changes. This pain has had a negative impact on the patients quality of life as she has not been able to complete her daily activities secondary to limited mobility. The patient has tried and failed conservative therapy such as physical therapy and medication management having achieved unsatisfactory reliefof her symptoms. Location of Pain: Bilateral low back with radiation to the right>left lower extremity posteriorly Intensity: The patient reports a pain score of 8 in the BACK Description/Characteristics of Pain: burning, sharp, shooting, throbbing Activities that worsen pain: standing, walking, bending forwards, bending backwards, bending sideways Activities that improve pain: lying down, rest Therapeutic measures that have been trialed include: Injection History: None Integrative therapies: PT: Tried physical therapy with no noted benefit (aqua/land) Chiropractic: Tried manager medicare, has helped some usually for 24 hours after appointment TENS: Has tried, no benefit Acupuncture: Has not tried Medications associated with treatment of Pain Syndrome: Anticonvulsants Gabapentin: 300 mg twice daily, previously gained significant weight when using gabapentin Lyrica: Tried previously, has not tried for this complaint Antidepressants Amitriptyline: 50 mg at bedtime Nortriptyline: Has not tried Effexor: Has not tried Cymbalta: Has not tried Muscle Relaxants Cyclobenzaprine: Tried with limited benefit Robaxin: Tried with limited benefit Antiinflammatory Ibuprofen: Taking occasionally, some limited benefit Meloxicam: No benefit Naproxen: Tried, no benefit Acetaminophen: Taking regularly with limited benefit Controlled Medications Suboxone: 10 mg daily Other: Aspercreme with lidocaine, no benefit; Prednisone, no noted benefit Medications for anticoagulation: None Diagnostic studies:See EMR for details. Allergies Allergen Reactions ??? Penicillins Outpatient Medications Marked as Taking for the 03/20/19 encounter (Office Visit) with Johnathon Peraza MD Medication Sig Dispense Refill ??? amitriptyline (ELAVIL) 50 mg tablet Take 50 mg by mouth daily. ??? buprenorphine HCl/naloxone HCl (SUBOXONE SL) Place 10 mg under the tongue daily. ??? gabapentin (NEURONTIN) 300 mg capsule Take 300 mg by mouth 2 times daily. ??? lisinopril (PRINIVIL, ZESTRIL) 20 mg tablet Take 20 mg by mouth daily. ??? loratadine (CLARITIN) 10 mg tablet Take 10 mg by mouth daily. ??? RANITIDINE HCL ORAL Take by mouth. Past Medical History: Diagnosis Date ??? Arthritis ??? Asthma ??? Depression ??? Heart murmur ??? Substance abuse (HCC-CMS) ??? Thyroid disease Past Surgical History: Procedure Laterality Date ??? ABDOMEN SURGERY ??? FRACTURE SURGERY Social History Socioeconomic History ??? Marital status: Single Spouse name: Not on file ??? Number of children: Not on file ??? Years of education: Not on file ??? Highest education level: Not on file Occupational History ??? Not on file Social Needs ??? Financial resource strain: Not on file ??? Food insecurity: Worry: Not on file Inability: Not on file ??? Transportation needs: Medical: Not on file Non-medical: Not on file Tobacco Use ??? Smoking status: Current Every Day Smoker Packs/day: 1.00 Types: Cigarettes ??? Smokeless tobacco: Never Used Substance and Sexual Activity ??? Alcohol use: No Frequency: Never ??? Drug use: Yes Types: Marijuana ??? Sexual activity: Not on file Lifestyle ??? Physical activity: Days per week: Not on file Minutes per session: Not on file ??? Stress: Not on file Relationships ??? Social connections: Talks on phone: Not on file Gets together: Not on file Attends caodaism service: Not on file Active member of club or organization: Not on file Attends meetings of clubs or organizations: Not on file Relationship status: Not on file ??? Intimate partner violence: Fear of current or ex partner: Not on file Emotionally abused: Not on file Physically abused: Not on file Forced sexual activity: Not on file Other Topics Concern ??? Not on file Social History Narrative ??? Not on file History reviewed. No pertinent family history. Review of Systems: A twelve point review of systems performed and negative except as noted in HPI Physical Exam: Vitals: Blood pressure 137/63, pulse 91, temperature 37.1 ??C (98.8 ??F), temperature source Tympanic. Pain score: 8/10 GEN: Alert and interactive. NAD. Rises from a seated position without difficulty. SKIN: Warm and dry. No signs of petechiae, bruising or infection in the lumbar region. NEURO: Motor 5/5 bilateral Lower extremities; Sensation intact to light touch in the bilateral Lower extremities. MS: lumbosacral spine with a normal external appearance. Diffuse tenderness over the lumbosacral area. Lc negative. SLR positive bilaterally. PULM: Even non-labored respirations CV: Pulses intact throughout. Rate normal. Assessment: Patient is a 38 y.o. year old female who presents with a pain syndrome associated with primary complaint bilateral low back pain with radiation to the bilateral lower extremities. This islikely related to degenerative disc disease with nerve root irritation. Despite relatively benign imaging, the patient is likely hyperalgesic secondary to prolonged opioid use and has a lower threshold to experience radicular pain with minimal nerve irritation. She would benefit from ongoing therapy with nerve membrane stabilizers. We did discuss epidural steroid injection to address an inflammato ry component to her symptoms. If she experiences relief, she is agreeable to ongoing trial of physical therapy focused on core strengthening and postural adventism in an effort to address her symptoms longer term. Associated diagnosis include: ICD-10-CM ICD-9-CM 1. DDD (degenerative disc disease), lumbosacral M51.37 722.52 2. Radicular pain of both lower extremities M54.10 724.4 3. Hyperalgesia R20.8 782.0 Plan/Recommendations : We discussed several treatment modalities today. Interventional therapy: From an interventional standpoint we recommend trial of epidural steroid injection at L5-S1 versus caudal epidural steroid injection at L5-S1 pending patient's symptoms at the time of presentation. The patient experienced significant relief from this injection we would remain available for repeat in jections as needed after at least 4 months. If the patient experienced limited or no relief would consider bilateral sacroiliac joint injections versus lumbar medial branch blocks. Medication management: From a medication standpoint we did discuss the possibility of gabapentin titration. She has thus far experienced no symptoms related to gabapentin. She does feel that she may have gained a small amount of weight and this would need to be monitored. Would recommend increasing the patient's dose to 300 mg 3 times daily for 5 days, if this is tolerated would increase further to 300 mg at breakfast,300 mg at lunch, and 600 mg at bedtime for 5 days. Again if this is tolerated ongoing titration in this manner manner could be continued until a dose of 900 mg 3 times daily is achieved or she has resolution of her symptoms. If increased doses of gabapentin or not tolerated, we would recommend trial of Lyrica going forward. Agree with ongoing amitriptyline therapy. Integrative modalties: From an integrative standpoint we do recommend ongoing physical therapy as tolerated. Recommend focus on core strengthening and postural adventism with both land-based and aqua therapy. Johnathon Peraza MD 03/20/2019 17:26 Attending attestation: I have seen and evaluated the patient with the resident/fellow. I agree withthe findings and plan of care documented in the resident's/fellow's note. Deric Evans MD documented in this encounter Plan of Treatment Upcoming Encounters Date Type Department Care Team (Late st Contact Info) Description 09/07/2024 15:45 EDT Office Visit [facility] Clinic [address] [place], [place] [id number] Alvino Schmid MD [address] [facility] [place] [phone] documented as of this encounter Visit Diagnoses Diagnosis DDD (degenerative disc disease), lumbosacral- Primary Degeneration of lumbar or lumbosacral intervertebral disc Radicular pain of both lower extremities Thoracic or lumbosacral neuritis or radiculitis, unspecified Hyperalgesia Disturbance of skin sensation documented in this encounter Historical Medications * This list may reflect changes made after this encounter. Medication Sig Dispensed Refills Start Date End Date gabapentin (NEURONTIN) 300 mg capsule Take 1 Capsule by mouth 2 times daily. levothyroxine (SYNTHROID) 50 mcg tablet Take 88 mcg by mouth daily. 0 01/28/2019 06/11/2024 RANITIDINE HCL ORAL Take 10 mg by mouth daily. 09/24/2023 loratadine (CLARITIN) 10 mg tablet Take 10 mg by mouth daily. 09/24/2023 amitriptyline (ELAVIL) 50 mg tablet Take 50 mg by mouth daily. 09/24/2023 lisinopril (PRINIVIL, ZESTRIL) 20 mg tablet Take 20 mg by mouth daily. 09/24/2023 buprenorphine HCl/naloxone HCl (SUBOXONE SL) Place 10 mg under the tongue daily. 06/11/2024 added in this encounter Care Teams Professor Of Biology Relationship Specialty Start Date End [place] [address] PCP - General 03/03/19 02/09/21 documented as of this encounter
--- OUTSIDE RECORDS SUMMARY | 2024-08-10 18:34 | XMS_ITS | Encounter Summary ---
Author Organization [facility] Address [address] [place] [address] Care Team Providers Care General Manager Name Role Phone Unavailable Primary Care Provider Unavailabl e Encounter Details Date Type Department Care Team (Late st Contact Info) Description 04/25/2005 Results Only [facility] - [facility] [address] [place] [address] Caroline Dawn MD [address] [id number] Social History Tobacco Use Types Packs/Day Years Used Date Smoking Tobacco: Never Assessed Sex and Gender Information Value Date Recorded Sex Assigned at Not on file Gender Identity Female 04/18/2020 12:56 EDT Sexual Orientation Not on file documented as of this encounter Plan of Treatment Upcoming Encounters Date Type Department Care Team (Late st Contact Info) Description 09/07/2024 15:45 EDT Office Visit [facility] [address] [place] [address] Alvino Schmid MD [address] [facility] [place] [address] documented as of this encounter Procedures Procedure Name Priority Date/Time Associated Diagnosis Comments CYTOPATHOLOGY Routine 04/25/2005 0:00 EDT documented in this encounter Results * CYTOPATHOLOGY (04/25/2005 0:00 EDT) Pathology Report: CYTOPATHOLOGY REPORT Reports generated via electronic interface contain original data; however they are lacking the format of the original report. Caution should be taken when reading/interpreti ng unformatted reports. Name: ? LALO WILLS ? Accession #: ? [id number] : ? 1980 (Age: 24) ??F ?Collect Date: ? 04/25/2005 Location: ? [facility] ? Receive Date: ? 04/26/2005 Provider: ?CAROLINE DAWN MD Copy to: ? Specimen/Source: ?ThinPrep Pap Test, Endocervix Last Menstrual Period: ? Menstrual/Pregnanc y Status: ? Other: ? Additional clinical information: Cervical lesions HPVA - HPV testing requested if ASC-US on the current ThinPrep Pap test. ? SPECIMEN ADEQUACY ? Satisfactory for Evaluation - transformation zone component present GENERAL CATEGORIZATION ? Negative for Intraepithelial Lesion or Malignancy INTERPRETATION ? Reactive cellular changes associated with inflammation present (includes repair). ? Document reviewed and electronically signed by: ? NINO LORD MD ? Report Date: ??05/08/2005 10:48 End of Report [facility] 04/25/2005 04/26/2005 Caroline Dawn MD PATHOLOGY ORDERABLES [facility] [address] [place] [address] documented in this encounter Visit Diagnoses Not on filedocumented in this encounter
--- OUTSIDE RECORDS SUMMARY | 2024-08-10 18:34 | XMS_ITS ---
Author Organization [facility] Address [address] [place] [address] Care Team Providers Care Pathology Laboratory Technologist Name Role Phone Maryan Moody MD Primary Care Provider [phone] Addiction Medicine Status:Enrolled (Active) Start date:06/11/2024 Enrollment date:06/11/2024 Current support & services provided:Clinical Management, Refill Management, Clinic Administered Medication Linked medications:buprenorphine (Active) Linked problems:Opioid use disorder (Active) Overview [facility]: [facility] [phone] Case Team Name Relationship Phone Melissa Wright [facility] Pharmacist(Responsible Staff) Continued Care and Services Coordination
--- OUTSIDE RECORDS SUMMARY | 2024-08-10 18:34 | XMS_ITS | Encounter Summary ---
Author Organization [facility] Address [address] [place] [address] Care Team Providers Care Crew Leader Gluing Name Role Phone Unavailable Primary Care Provider Unavailabl e Encounter Details Date Type Department Care Team (Late st Contact Info) Description 01/10/[address] [facility] - Maple conversion [address] [place] [address] Unknown, Provider, Social History Tobacco Use Types Packs/Day Years Used Date Smoking Tobacco: Never Assessed Sex and Gender Information Value Date Recorded Sex Assigned at Not on file Gender Identity Female 04/18/2020 12:56 EDT Sexual Orientation Not on file documented as of this encounter Plan of Treatment Upcoming Encounters Date Type Department Care Team (Late st Contact Info) Description 09/07/2024 15:45 EDT Office Visit [facility] Clinic [address] [place] [address] Alvino Schmid MD [address] [facility] [address] [place] [address] documented as of this encounter Procedures Procedure Name Priority Date/Time Associated Diagnosis Comments N. GONORRHOEAE AMPLIFIED PROBE Routine 01/10/2005 12:56 EST ZZCHLAMYDIA TRACHOMATIS AMPLIFIED PROBE Routine 01/10/2005 12:56 EST CYTOPATHOLOGY Routine 01/10/2005 0:00 EST documented in this encounter Results * N. GONORRHOEAE AMPLIFIED PROBE (01/10/2005 12:56 EST) Result No Neisseria gonorrhoeae DNA detected by strap buckler machine mediated amplification. [facility] Report Status Final [id number] [facility] Specimen Description Cervix [facility] 01/10/2005 12:5 6 EST 01/10/2005 20:59 EST Provider Unknown MICROBIOLOGY - GENER AL ORDERABLES Performing Organization Address [facility] de Phone Number [facility] [address] [place] [address] * CHLAMYDIA TRACHOMATIS AMPLIFIED PROBE (01/10/2005 12:56 EST) Specimen Description Cervix [facility] Result No Chlamydia trachomatis DNA detected by strap buckler machine mediated amplification. [facility] Report Status Final [id number] [facility] 01/10/2005 12:5 6 EST 01/10/2005 20:59 EST Provider Unknown MICROBIOLOGY - GENER AL ORDERABLES Performing Organization Address [facility] de Phone Number [facility] [address] [place] [address] * CYTOPATHOLOGY (01/10/2005 0:00 EST) Pathology Report: CYTOPATHOLOGY REPORT Reports generated via electronic interface contain original data; however they are lacking the format of the original report. Caution should be taken when reading/interpreti ng unformatted reports. Name: ? LALO WILLS ? Accession #: ? [id number] : ? 1980 (Age: 24) ??F ?Collect Date: ? 01/10/2005 Location: ? [facility] ? Receive Date: ? 01/11/2005 Provider: ?RAVEN OSEI MD Copy to: ? Specimen/Source: ?ThinPrep Pap Test, Cervix Last Menstrual Period: ? Menstrual/Pregnanc y Status: ? Other: ? HPVA - HPV testing requested if ASC-US on the current ThinPrep Pap test. ? SPECIMEN ADEQUACY ? Satisfactory for Evaluation - transformation zone component present GENERAL CATEGORIZATION ? Negative for Intraepithelial Lesion or Malignancy ? Document reviewed and electronically signed by: ? Imani Wood, CT(ASCP) ? Report Date: ??01/16/2005 11:32 End of Report [facility] 01/10/2005 01/11/2005 Raven Osei MD PATHOLOGY ORDERABLES [facility] [address] [place] [address] documented in this encounter Visit Diagnoses Not on filedocumented in this encounter
--- OUTSIDE RECORDS SUMMARY | 2024-08-10 18:34 | XMS_ITS | Encounter Summary ---
Author Organization [facility] Address [address] [place] [address] Care Team Providers Care Sock Boarder Name Role Phone Emily Reyes Primary Care Provider [phone] Maryan Moody MD Primary Care Provider [phone] Encounter Details Date Type Department Care Team (Late st Contact Info) Description 08/04/2021 Lab Requisition [facility] Pathology & Laboratory Medicine - [facility] [address] [place] [address] Outr Resulting Lab, Provider Social History Tobacco [...] Info) Description 09/07/2024 15:45 EDT Office Visit [facility] Clinic [address] [place] [address] Alvino Schmid MD [address] [facility] [address] [place] [address] documented as of this encounter Procedures Procedure Name Priority Date/Time Associated Diagnosis Comments HIV 1/2 ANTIGEN AND ANTIBODY, 4TH GENERATION Routine 08/03/2021 14:30 EDT documented in this encounter Results * HIV 1/2 ANTIGEN AND ANTIBODY, 4TH GENERATION (08/03/2021 14:30 EDT) Pathologist [facility] HIV 1 and 2 Antibody/p24 Antigen, 4th Generation Negative Negative 08/07/2021 11:12 EDT [facility] Comment: If acute HIV-1 infection is suspected in a high risk ??patient, submit plasma specimen for HIV-1 RNA quantitation test. Fourth Generation assay performed on the Siemens Centaur. Blood VENOUS BLOOD / Unknown 08/03/2021 14:30 EDT 08/04/2021 16:30 EDT Provider Outr Resulting Lab IMMUNOLOGY A ND SEROLOGY ORDERABLES [facility] [address] [place] [address] documented in this encounter Visit Diagnoses Not on filedocumented in this encounter Care Teams Sock Boarder Relationship Specialty Start Date End Date Emily Reyes FNP PCP - General 02/10/21 09/12/23 Maryan Moody MD [address] [place] [address] PCP - General 09/13/23 documented as of this encounter
--- OUTSIDE RECORDS SUMMARY | 2024-08-10 18:34 | XMS_ITS | Encounter Summary ---
Author Organization [facility] Address [address] [place] [address] Care Team Providers Care Furnace Tapper Name Role Phone Unknown, Provider Primary Care Provider Encounter Details Date Type Department Care Team (Late st Contact Info) Description 02/26/2017 Results Only [facility] [phone] Raven Osei MD [address] [address] Social History Tobacco Use Types Packs/Day Years Used Date Smoking Tobacco: Never Assessed Sex and Gender Information Value Date Recorded Sex Assigned at Not on file Gender Identity Female 04/18/2020 12:56 EDT Sexual Orientation Not on file documented as of this encounter Plan of Treatment Upcoming Encounters Date Type Department Care Team (Late st Contact Info) Description 09/07/2024 15:45 EDT Office Visit [facility] Card[facility] Clinic [address] [place] [address] Alvino Schmid MD [address] [facility] [place] [address] documented as of this encounter Procedures Procedure Name Priority Date/Time Associated Diagnosis Comments PAP TEST- RESULT ONLY Routine 02/26/2017 0:00 EDT documented in this encounter Results * PAP TEST- RESULT ONLY (02/26/2017 0:00 EDT) Pathology Report: CYTOPATHOLOGY REPORT Reports generated via electronic interface contain original data; however they are lacking the format of the original report. Caution should be taken when reading/interpreti ng unformatted reports. Name: ? LALO WILLS ? Accession #: ? [id number] ? : ? 1980 (Age: 36) ??F ?Collect Date: ? 02/26/2017 ? Location: ? [facility] ? Receive Date: ? 02/27/2017 ? Provider: RAVEN OSEI MD Copy to: ? Final Report SPECIMEN ADEQUACY ? Satisfactory for Evaluation - transformation zone component present GENERAL CATEGORIZATION ? Negative for Intraepithelial Lesion or Malignancy INTERPRETATION ? Reactive cellular changes associated with inflammation present (includes repair). Specimen/Source: ??Pap Test, Cervix, ThinPrep Imaging System with manual evaluation Document reviewed and electronically signed by: ? CHRISTIANO TINSLEY MD ? Report ??Date: 03/04/2017 13:11 HPV with Pap Test ? Date Ordered: ? 03/04/2017 ? Status: ?? Signed Out ?Date Complete: ? 03/05/2017 ? By: ??System Interface ? Date Reported: ? 03/05/2017 ? Interpretation RESULT: Negative for HPV. No E6 or E7 mRNA is detected from HPV types 16,18,31,33,35, 39,45,51,52,56,58, 59,66, and 68 by correction officer supervisor mediated amplification. Comments Document reviewed and electronically signed by: ? System Interface ? Report date: 03/05/2017 By the signature above, the attending physician certifies that he/she has personally conducted a gross and/or microscopic examination of the described specimens and rendered or confirmed the above diagnosis. End of Report [facility] 02/26/2017 02/27/2017 Raven Osei MD PATHOLOGY ORDERABLES [facility] [address] [place] [address] documented in this encounter Visit Diagnoses Not on filedocumented in this encounter Care Teams Furnace Tapper Relationship Specialty Start Date End Date Unknown, Provider, PCP - General 02/26/17 03/02/19 documented as of this encounter
--- OUTSIDE RECORDS SUMMARY | 2024-08-10 18:34 | XMS_ITS | Encounter Summary ---
Author Organization [facility] Address [address] [place] [address] Care Team Providers Care Copier And Printer Field Technician Name Role Phone Unavailable Primary Care Provider Unavailabl e Encounter Details Date Type Department Care Team (Late st Contact Info) Description 01/19/2004 Results Only [facility] - Maple conversion [address] [place] [address] Unknown, Provider, Social History Tobacco Use Types [...] Info) Description 09/07/2024 15:45 EDT Office Visit [facility] Cardiology Clinic [address] [place] [address] Alvino Schmid MD [address] [facility] [address] [place] [address] documented as of this encounter Procedures Procedure Name Priority Date/Time Associated Diagnosis Comments N. GONORRHOEAE AMPLIFIED PROBE Routine 01/19/2004 19:17 EST ZZCHLAMYDIA TRACHOMATIS AMPLIFIED PROBE Routine 01/19/2004 19:17 EST documented in this encounter Results * N. GONORRHOEAE AMPLIFIED PROBE (01/19/2004 19:17 EST) Result No Neisseria gonorrhoeae DNA detected by care transport nurse mediated amplification. [facility] Report Status Final [id number] [facility] Specimen Description Cervix [facility] 01/19/2004 19:1 7 EST 01/20/2004 21:25 EST Provider Unknown MICROBIOLOGY - GENER AL ORDERABLES Performing Organization Address [facility] Co de Phone Number [facility] [address] [place] [address] * CHLAMYDIA TRACHOMATIS AMPLIFIED PROBE (01/19/2004 19:17 EST) Specimen Description [facility] Result No Chlamydia trachomatis DNA detected by care transport nurse mediated amplification. [facility] Report Status Final [id number] [facility] 01/19/2004 19:1 7 EST 01/20/2004 21:25 EST Provider Unknown MICROBIOLOGY - GENER AL ORDERABLES Performing Organization Address [facility] Co de Phone Number [facility] [address] [place] [address] documented in this encounter Visit Diagnoses Not on filedocumented in this encounter
--- OUTSIDE RECORDS SUMMARY | 2024-08-10 18:34 | XMS_ITS | Encounter Summary ---
Author Organization [facility] Address [address] [place] [address] Care Team Providers Care Radio Time Sales Supervisor Name Role Phone IvetEmily holden RAFFY Primary Care Provider [phone] Maryan Moody MD Primary Care Provider [phone] Reason for Visit * Reason Comments Other Encounter Details Date Type Department Care Team (Late st Contact Info) Description 05/22/2021 Refill [facility] [address] [id number] Maryan Alanis MD [address] [facility] [address] [place], [place] [address] Other Social History Tobacco Use Types Packs/Day Years [...] Yes 03/20/2019 documented as of this encounter Miscellaneous Notes * Telephone Encounter - Pallavi Hernandez RN - 05/24/2021 0901 EDT Forwarding pt's request for medication to you. Thank you! documented in this encounter Plan of Treatment Upcoming Encounters Date Type Department Care Team (Late st Contact Info) Description 09/07/2024 15:45 EDT Office Visit [facility] Cardiology Clinic [address] [place], [place] [address] Alvino Schmid MD [address] [facility] [address] [place] [address] documented as of this encounter Visit Diagnoses Not on filedocumented in this encounter Care Teams Radio Time Sales Supervisor Relationship Specialty Start Date End Date Emily Reyes FNP PCP - General 02/10/21 09/12/23 Maryan Moody MD [address] [place] [phone] PCP - General 09/13/23 documented as of this encounter
--- OUTSIDE RECORDS SUMMARY | 2024-08-10 18:34 | XMS_ITS | Encounter Summary ---
Author Organization [facility] Address [address] [place] [address] Care Team Providers Care Roller Picker Name Role Phone Unavailable Primary Care Provider Unavailabl e Encounter Details Date Type Department Care Team (Late st Contact Info) Description 12/30/[address] [facility] - Maple conversion [address] [place] [address] Unknown, Provider, Social History Tobacco Use Types [...] Info) Description 09/07/2024 15:45 EDT Office Visit [facility] Cardiology Clinic [address] [place], [place] [address] Alvino Schmid MD [address] [facility] [place] [address] documented as of this encounter Procedures Procedure Name Priority Date/Time Associated Diagnosis Comments RHEUMATOID FACTOR Routine 12/30/2005 10: 00 EST documented in this encounter Results * RHEUMATOID FACTOR (12/30/2005 10:00 EST) Rheumatoid Factor <20 <20 IU/ml [facility] 12/30/2005 10:0 0 EST 12/31/2005 21:33 EST Provider Unknown CHEMISTRY & BLOOD GA S ORDERABLES Performing Organization Address City/State/[facility] Co de Phone Number [facility] [address] [place] [address] documented in this encounter Visit Diagnoses Not on filedocumented in this encounter
--- OUTSIDE RECORDS SUMMARY | 2024-08-10 18:34 | XMS_ITS | Encounter Summary ---
Author Organization [facility] Address [address] [place] [address] Care Team Providers Care Business Law Professor Name Role Phone Raven Osei MD Primary Care Provider Encounter Details Date Type Department Care Team (Late st Contact Info) Description 04/18/2020 Abstract [facility] [place] [address] [place] [phone] Pattie Carmen NP [address] [facility] [address] [place] [id number] Social History Tobacco Use Types Packs/Day Years [...] Info) Description 09/07/2024 15:45 EDT Office Visit [facility] Cardiology Clinic [address] [place] [address] Alvino Schmid MD [address] [facility] [place] [address] documented as of this encounter Visit Diagnoses Not on filedocumented in this encounter Care Teams Business Law Professor Relationship Specialty Start Date End Date Raven Osei MD [address] [address] PCP - General 03/03/19 02/09/21 documented as of this encounter
--- OUTSIDE RECORDS SUMMARY | 2024-08-10 18:34 | XMS_ITS | Encounter Summary ---
Author Organization [facility] Address [address] [place] [address] Care Team Providers Care Client Relations Representative Name Role Phone Raven Osei MD Primary Care Provider [phone] Encounter Details Date Type Department Care Team (Late st Contact Info) Description 03/10/2019 Results Only [facility] [phone] Unknown, Provider, Social History Tobacco Use Types [...] 15:45 EDT Office Visit [facility] Cardiology Clinic [address] [place], [place] [phone] Alvino Schmid MD [address] [facility] [place] [address] Pending Results Name Type Priority Associated Diagnoses Date /Time OUTSIDE IMAGES - MR NEURO Imaging 03/10/2019 12:34 EDT documented as of this encounter Visit Diagnoses Not on filedocumented in this encounter Care Teams Client Relations Representative Relationship Specialty Start Date [place] [address] PCP - General 03/03/19 02/09/21 documented as of this encounter
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
--- OUTSIDE RECORDS SUMMARY | 2024-08-10 18:34 | XMS_ITS ---
Author Organization Unknown Address [address] [place] [address] [phone] Phone Care Team Providers Care Netbackup Engineer Name Role Phone GURWINDER LEONARDO MD Attending Uche MILLER Unavailable RICARDO MORRISSEY Primary Unavailable Results URINALYSIS WITH REFLEX CULT IF POSITIVE - Collect Date/Time: 07/15/2021 21:01 [facility] ID: [id number] [address] [place], [place], [address] LOINC: 22589-4 Test Value Unit Reference Range Code Code System Flag COLLECTION MODE: Clean Catch Color YELLOW yellow 5778-6 LOINC Appearance CLOUDY clear 5767-9 LOINC Glucose urine NEGATIVE negative mg/dl 51418-6 LOINC Bilirubin NEGATIVE negative 5770-3 LOINC Ketones 15 negative mg/dl 2514-8 LOINC A Spec gravity >=1.030 1.003 - 1.030 5811-5 LOINC pH urine 6.0 5.0 - 7.0 2756-5 LOINC Protein >=300 negative mg/dl 33182-9 LOINC A Urobilinogen 1.0 <or= 1 EU/dl 02326-2 LOINC A Nitrite. NEGATIVE negative 5802-4 LOINC Blood LARGE negative 5794-3 LOINC A Leukocytes. MODERATE negative A MICROSCOPIC INDICATED WBCs. 10-25 0-5 / hpf 58415-3 LOINC RBCs >100 0-5 / hpf 63464-5 LOINC Epith cells 0-5 0-5 / hpf 96353-2 LOINC Cell types squamous Crystals none none Bacteria none none Mucus none none 8247-9 LOINC Casts none none /lpf 00477-9 LOINC Other 10799-0 LOINC Social History Type Status Start Date End Date Code Code Syst em Smoking History Current every day smoker 386336449 SNOMED CT Smoking History Current every day smoker [id number] Sex Female Medications Medication Start Date End Date Route Frequency Dose Code Code System Medication Instructions Home Meds BCP 04/21/2019 05/27/2023 ORAL DAILY 1 TABLET RxNorm TAKE 1 TABLET ORAL DAILY Gabapentin 100MG Oral Capsule 04/21/2019 05/27/2023 ORAL DAILY 100 MILLIGRAMS 024857 RxNorm TAKE 100 MILLIGRAMS ORAL DAILY LORADAMED 10MG ORAL TABLET 04/21/2019 05/27/2023 ORAL DAILY 10 MILLIGRAMS RxNorm TAKE 10 MILLIGRAMS ORAL DAILY Lisinopril 10MG Oral Tablet 04/21/2019 05/27/2023 ORAL DAILY 10 MILLIGRAMS 588538 RxNorm TAKE 10 MILLIGRAMS ORAL DAILY RELPAX 20MG ORAL TABLET 04/21/2019 05/27/2023 ORAL NEEDED 20 MILLIGRAMS RxNorm TAKE 20 MILLIGRAMS ORAL NEEDED SUBOXONE 8MG-2MG SUBLINGUAL FILM 04/21/2019 10/06/2021 ORAL DAILY 8 MILLIGRAMS RxNorm TAKE 8 MILLIGRAMS ORAL DAILY raNITIdine 150MG Oral Tablet 04/21/2019 05/27/2023 ORAL DAILY 150 MILLIGRAMS 798643 RxNorm TAKE 150 MILLIGRAMS ORAL DAILY Carafate 1GM Oral Tablet 04/29/2024 Unknown ORAL NEEDED THREE TIMES A DAY 1 TABLET 809497 RxNorm TAKE 1 TABLET ORAL NEEDED THREE TIMES A DAY FOR Pain Ondansetron 4MG Oral Tablet, Disintegrating 04/29/2024 Unknown ORAL NEEDED EVERY 6 HOURS 420522 RxNorm TAKE 1-2 TABLET ORAL NEEDED EVERY [...] ANKYLOSIS OF LOWER LEG JOINT active 2 42314701 SNOMED-CT HTN active 42575023 SNOMED-CT Allergies and Adverse Reactions Allergy Substance Reaction Severity Start Date Concern Status Co de Code System VIOXX Rash (SNOMED-CT: 776262449) Active PCN (PENICILLIN) Active Plan of Treatment Symptoms 02/24/2021 Encounters Encounter Diagnosis Start Date Code Code Sys tem Acute cystitis with hematuria 07/15/2021 SNOMED-CT Personal Care Team Section Performer Name Performer Role Active Date Inactive Da te
--- OUTSIDE RECORDS SUMMARY | 2024-08-10 18:34 | XMS_ITS | Encounter Summary ---
Author Organization [facility] Address [address] [place] [address] Care Team Providers Care Charter Boat Operator Name Role Phone Unavailable Primary Care Provider Unavailabl e Encounter Details Date Type Department Care Team (Late st Contact Info) Description 11/15/2004 Results Only [facility] [address] [place] [address] Unknown, Provider, Social History Tobacco Use Types [...] Info) Description 09/07/2024 15:45 EDT Office Visit [facility] [address], [place] [address] Alvino Schmid MD [address] [facility] [place] [address] documented as of this encounter Procedures Procedure Name Priority Date/Time Associated Diagnosis Comments RUBELLA IGG AB Routine 11/15/2004 13:07 EST N. GONORRHOEAE AMPLIFIED PROBE Routine 11/15/2004 13:07 EST HEPATITIS B SURFACE ANTIGEN Routine 11/15/2004 13:07 EST ZZCHLAMYDIA TRACHOMATIS AMPLIFIED PROBE Routine 11/15/2004 13:07 EST SYPHILIS SERO (RPR) Routine 11/15/2004 1 3:07 EST HIV 1/2 ANTIGEN AND ANTIBODY, 4TH GENERATION Routine 11/15/2004 13:07 EST documented in this encounter Results * N. GONORRHOEAE AMPLIFIED PROBE (11/15/2004 13:07 EST) Result No Neisseria gonorrhoeae DNA detected by dock superintendent mediated amplification. [facility] Report Status Final [id number] [facility] Specimen Description Urine [facility] 11/15/2004 13:0 7 EST 11/15/2004 20:44 EST Provider Unknown MICROBIOLOGY - GENER AL ORDERABLES Performing Organization Address [facility] Co de Phone Number [facility] [address] [place] [address] * CHLAMYDIA TRACHOMATIS AMPLIFIED PROBE (11/15/2004 13:07 EST) Specimen Description Urine [facility] Result No Chlamydia trachomatis DNA detected by dock superintendent mediated amplification. [facility] Report Status Final [id number] [facility] 11/15/2004 13:0 7 EST 11/15/2004 20:44 EST Provider Unknown MICROBIOLOGY - GENER AL ORDERABLES Performing Organization Address [facility] [address] [facility] Co de Phone Number [facility] [address] [place] [address] * RUBELLA IGG AB (11/15/2004 13:07 EST) Rubella IgG Scr Antibody detected [facility] 11/15/2004 13:0 7 EST 11/15/2004 20:43 EST Provider Unknown HISTORICAL LAB FOR S Q LOAD Performing Organization Address [facility] Co de Phone Number [facility] [address] [place] [address] * SYPHILIS SERO (RPR) (11/15/2004 13:07 EST) Syphilis Sero (RPR) NONREACT. NR Dils [facility] 11/15/2004 13:0 7 EST 11/15/2004 20:43 EST Provider Unknown IMMUNOLOGY AND SEROL OGY ORDERABLES Performing Organization Address [facility] de Phone Number [facility] [address] [place] [address] * HIV ANTIBODY (11/15/2004 13:07 EST) HIV 1/2 Antibody NONREACT. NR [facility] 11/15/2004 13:0 7 EST 11/15/2004 20:43 EST Provider Unknown IMMUNOLOGY AND SEROL OGY ORDERABLES Performing Organization Address [facility] de Phone Number [facility] [address] [place] [address] * HEPATITIS B SURFACE ANTIGEN (11/15/2004 13:07 EST) Hepatitis B Surface Ag Neg [facility] 11/15/2004 13:0 7 EST 11/15/2004 20:43 EST Provider Unknown MD CHEMISTRY & BLOOD GA S ORDERABLES Performing Organization Address [facility] Co de Phone Number [facility] [address] [place] [address] documented in this encounter Visit Diagnoses Not on filedocumented in this encounter
--- OUTSIDE RECORDS SUMMARY | 2024-08-10 18:34 | XMS_ITS ---
Author Organization Unknown Address [address] [place] [address] [phone] Phone Care Team Providers Care Cell Attendant Helper Name Role Phone ADELA BURNS MD Attending Unavailable JOSE SOSA MD ER Unavailable RICARDO MORRISSEY Primary Unavailable Social History Type Status Start Date End Date Code Code Syst em Smoking History Current every day smoker 696728762 SNOMED CT Smoking History Current every day smoker [address] Sex Female Medications Medication Start Date End Date Route Frequency Dose Code Code System Medication Instructions Home Meds BCP 04/21/2019 05/27/2023 ORAL DAILY 1 TABLET RxNorm TAKE 1 TABLET ORAL DAILY Gabapentin 100MG Oral Capsule 04/21/2019 05/27/2023 ORAL DAILY 100 MILLIGRAMS 243749 RxNorm TAKE 100 MILLIGRAMS ORAL DAILY LORADAMED 10MG ORAL TABLET 04/21/2019 05/27/2023 ORAL DAILY 10 MILLIGRAMS RxNorm TAKE 10 MILLIGRAMS ORAL DAILY Lisinopril 10MG Oral Tablet 04/21/2019 05/27/2023 ORAL DAILY 10 MILLIGRAMS 656125 RxNorm TAKE 10 MILLIGRAMS ORAL DAILY RELPAX 20MG ORAL TABLET 04/21/2019 05/27/2023 ORAL NEEDED 20 MILLIGRAMS RxNorm TAKE 20 MILLIGRAMS ORAL NEEDED SUBOXONE 8MG-2MG SUBLINGUAL FILM 04/21/2019 10/06/2021 ORAL DAILY 8 MILLIGRAMS RxNorm TAKE 8 MILLIGRAMS ORAL DAILY raNITIdine 150MG Oral Tablet 04/21/2019 05/27/2023 ORAL DAILY 150 MILLIGRAMS 825350 RxNorm TAKE 150 MILLIGRAMS ORAL DAILY Carafate 1GM Oral Tablet 04/29/2024 Unknown ORAL NEEDED THREE TIMES A DAY 1 TABLET 20800808 RxNorm TAKE 1 TABLET ORAL NEEDED THREE TIMES A DAY FOR Pain Ondansetron 4MG Oral Tablet, Disintegrating 04/29/2024 Unknown ORAL NEEDED EVERY 6 HOURS 318569 RxNorm TAKE 1-2 TABLET ORAL NEEDED EVERY [...] ANKYLOSIS OF LOWER LEG JOINT active 2 57190587 SNOMED-CT HTN active 29130115 SNOMED-CT Allergies and Adverse Reactions Allergy Substance Reaction Severity Start Date Concern Status Co de Code System VIOXX Rash (SNOMED-CT: 471784477) Active PCN (PENICILLIN) Active Plan of Treatment Symptoms 02/24/2021 Encounters Encounter Diagnosis Start Date Code Code Sys tem Migraine, unspecified, intra ctable, with status migrainosus 06/05/2021 SNOMED-CT Personal Care Team Section Performer Name Performer Role Active Date Inactive Da raúl
--- OUTSIDE RECORDS SUMMARY | 2024-08-10 18:34 | XMS_ITS | Encounter Summary ---
Author Organization [facility] Address [address] [place] [address] Care Team Providers Care Global Program Manager Name Role Phone Emily Reyes RAFFY Primary Care Provider [phone] Maryan Moody MD Primary Care Provider [phone] Reason for Visit * Reason Comments Other Encounter Details Date Type Department Care Team (Late st Contact Info) Description 06/16/2021 Refill [facility] [address] [address] Maryan Alanis MD [address] [facility] [address] [place], [place] [address] Other Social History Tobacco Use Types Packs/Day [...] Description 09/07/2024 15:45 EDT Office Visit [facility] [address] [place] [address] Alvino Schmid MD [address] [facility] [place] [phone] documented as of this encounter Visit Diagnoses Not on filedocumented in this encounter Care Teams Global Program Manager Relationship Specialty Start Date End Date Emily Reyes FNP PCP - General 02/10/21 09/12/23 Maryan Moody MD [address] [place] [phone] PCP - General 09/13/23 documented as of this encounter
[2024-08-10 21:59] LABS: Hemoglobin A1C 5.3 % (<5.7)
[2024-08-10 22:27] LABS: ALT 15 U/L (14-59); AST 18 U/L (15-37); Albumin 3.6 g/dL (3.4-5.0); Alkaline Phosphatase 77 U/L (46-116); Bilirubin, Direct 0.1 mg/dL (0.0-0.2); Total Protein 7.2 g/dL (6.4-8.2); Vitamin B12 216 pg/mL (193-986)
[2024-08-10 22:59] LABS: Folate 8.1 ng/mL (8.6-20.0)
== END 2024-08-10 18:30 | disposition home or self-care (01) ==
LOC: NCHCN 18:29
PROVIDERS: PCP Nurse Practitioner Community Health; Visit Provider Family Medicine
DX: R73.03 Prediabetes (principal); M79.2 Neuralgia and neuritis, unspecified; E03.9 Hypothyroidism, unspecified; Z86.2 Personal history of diseases of the blood and blood-forming organs and certain disorders involving the immune mechanism; Z79.899 Other long term (current) drug therapy; Z51.81 Encounter for therapeutic drug level monitoring
CPT/HCPCS: 80076; 82607; 82746; 83036

== ENCOUNTER 2025-07-12 18:03 | Outpatient (REF) | payer MEDICAID, SELFPAY ==
--- NOTE | 2025-07-12 15:15 | SKI_PTH ---
PAT[facility]: [facility] Sanchez [id number] AGE/SX: 44/F ROOM: RE07/12/[address]: Maryan Moody : 1980 BED: DIS: 07/12/2025 SPEC #: [id number] RECD: 07/13/25 12:49 STATUS: CHONG REDanie #: [id number] BART: 07/12/25 15:[address]: Maryan Moody DEPT: Surgical Specimen RECD BY: Barbara Rob ENTERED: 07/13/25 12:50 SP TYPE: MANUEL PETERS DR: Emily Reyes Tissues: 1 - SKIN BIOPSY(SHAVE/PUNCH) Procedures: SKIN LEVEL 4 Comments: [id number]
== END 2025-07-12 18:04 | disposition home or self-care (01) ==
LOC: NCHCN 18:03
PROVIDERS: PCP Nurse Practitioner Community Health; Visit Provider Family Medicine
DX: D22.71 Melanocytic nevi of right lower limb, including hip (principal)
CPT/HCPCS: 88305

== ENCOUNTER 2025-08-30 17:17 | Outpatient (REF) | payer MEDICAID, SELFPAY ==
[2025-09-01 10:42] LABS: Lyme Ab w Rflx to Lyme Confirm Negative (Negative)
== END 2025-08-30 17:18 | disposition home or self-care (01) ==
LOC: NCHCN 17:17
PROVIDERS: PCP Nurse Practitioner Community Health; Visit Provider Family Medicine
DX: R51.9 Headache, unspecified (principal)
CPT/HCPCS: 86618

== ENCOUNTER 2025-09-14 21:21 | Outpatient (REF) | payer MEDICAID, SELFPAY | END 2025-09-14 21:22 | disposition home or self-care (01) | LOC: NCHCN 21:21 | PROVIDERS: PCP Nurse Practitioner Community Health; Visit Provider Physician Assistant | DX: M54.50 Low back pain, unspecified (principal) | CPT/HCPCS: 87086 ==